=== PATIENT | male | born 1985 | race Caucasian/White ===

== ENCOUNTER → 2016-08-24 | Outpatient (CLI) | payer OTHER ==
--- NOTE | 2016-08-24 11:10 | XR ---
EXAMINATION TYPE: XR hand complete LT DATE OF EXAM: 08/24/2016 11:02 AM CLINICAL HISTORY: Smashing injury with pain TECHNIQUE: Frontal, lateral and oblique images of the left hand are obtained. COMPARISON: Left hand x-ray July 03, 2013 FINDINGS: There is no acute fracture/dislocation evident in the left hand with particular attention to second digit. The joint spaces in the left hand appear within normal limits. The overlying soft t issue appears unremarkable. IMPRESSION: There is no acute fracture or dislocation in the left hand.
== END | disposition home or self-care (01) ==
LOC: RADXRMAIN 10:50
PROVIDERS: ATTEND Emergency Medicine
DX: S67.191A Crushing injury of left index finger, initial encounter (principal); W23.0XXA Caught, crushed, jammed, or pinched between moving objects, initial encounter

== ENCOUNTER 2016-09-16 09:54 | Emergency (ER) | payer BC ==
[2016-09-16] MEDS ORDERED: SODIUM CHLORIDE 0.9% 1,000 ML IV STA (10:25)
--- NOTE | 2016-09-16 10:27 | ED ---
General Adult HPI - General Chief complaint: Abdominal Pain Stated complaint: HYPERGLYCEMIA, PAIN ON RT SIDE Time Seen by Provider: 09/16/16 10:18 Source: patient, RN notes reviewed Mode of arrival: ambulatory Limitations: no limitations - History of Present Illness Initial comments: The patient for 11-year-old male with significant past medical history for hypertension, who presents emergency room today with chief complaint of right- sided flank pain. He does admit the pain started last night had difficult time sleeping. Does admit that he went to urgent care was advised coming here to emergency room for further evaluation. He states he had a urine sample done at the urgent care was told that there was some blood in it. He denies any history of kidney stones. He admits to feeling nauseated. Denies any other complaints or associated symptoms at this time. Patient denies any recent fever , chills, shortness of breath, chest pain, numbness or tingling, dysuria or hematuria, constipation or diarrhea, headaches or visual changes, or any other complaints. - Related Data Previous Rx's Medication Instructions Recorded Ibuprofen [Motrin] 600 mg PO Q6HR PRN #40 day 09/16/16 Ondansetron Odt [Zofran ODT] 4 mg PO Q8HR PRN #20 tab 09/16/16 Allergies Allergy/AdvReac Type Severity Reaction Status Date / Time No Known Allergies Allergy Verified 09/16/16 10:05 Review of Systems ROS Statement: Those systems with pertinent positive or pertinent negative responses have been documented in the HPI. ROS Other: All systems not noted in ROS Statement are negative. Past Medical History Past Medical History: No Reported History, Hypertension History of Any Multi-Drug Resistant Organisms: None Reported Past Surgical History: Hernia Repair Past Psychological History: Depression Smoking Status: Never smoker Past Alcohol Use History: None Reported Past Drug Use History: None Reported General Exam - General Exam Comments Initial Comments: General: The patient is awake and alert, in no distress, and does not appear acutely ill. Eye: Pupils are equal, round and reactive to light, extra-ocular movements are intact. No nystagmus. There is normal conjunctiva bilaterally. No signs of icterus. Ears, nose, mouth and throat: There are moist mucous membranes and no oral lesions. Neck: The neck is supple, there is no tenderness or JVD. Cardiovascular: There is a regular rate and rhythm. No murmur, rub or gallop is appreciated. Respiratory: Lungs are clear to auscultation, respirations are non-labored, breath sounds are equal. No wheezes, stridor, rales, or rhonchi. Gastrointestinal: Soft, non-distended, non-tender abdomen without masses or organomegaly noted. There is no rebound or guarding present. No CVA tenderness. Bowel sounds are unremarkable. Musculoskeletal: Normal ROM, no tenderness. Strength 5/5. Sensation intact. Pulses equal bilaterally 2+. Neurological: A&O x 3. CN II-XII intact, There are no obvious motor or sensory deficits. Coordination appears grossly intact. Speech is normal. Skin: Skin is warm and dry and no rashes or lesions are noted. Psychiatric: Cooperative, appropriate mood & affect, normal judgment. Limitations: no limitations Course Vital Signs 09/16/16 09/16/16 09/16/16 10:06 11:30 12:01 Temperature 97.6 F 97.3 F L Pulse Rate 71 97 Respiratory 20 16 Rate Blood Pressure 171/111 202/103 165/105 O2 Sat by Pulse 99 100 Oximetry Medical Decision Making - Medical Decision Making Patient's CAT scan reviewed and does show polycystic kidneys with renal stones. Patient's labs reviewed 13,000 white count has had symptoms of nausea vomiting. Patient rested comfortably in no distress here the emergency room will be discharged home with nausea medication. Advised anti-inflammatories for pain and follow-up family doctor this coming week. Advised return if any symptoms increase or worsen or for concerns. - Lab Data Result diagrams: 09/16/16 10:35 09/16/16 10:35 Lab Results 09/16/16 09/16/16 09/16/16 Range/Units 10:35 10:35 11:30 WBC 13.4 H (3.8-10.6) k/uL RBC 4.80 (4.30-5.90) m/uL Hgb 15.5 (13.0-17.5) gm/dL Hct 44.7 (39.0-53.0) % MCV 93.2 (80.0-100.0) fL MCH 32.3 (25.0-35.0) pg MCHC 34.6 (31.0-37.0) g/dL RDW 12.1 (11.5-15.5) % Plt Count 194 (150-450) k/uL Neutrophils % 86 % Lymphocytes % 7 % Monocytes % 4 % Eosinophils % 0 % Basophils % 0 % Neutrophils # 11.6 H (1.3-7.7) k/uL Lymphocytes # 1.0 (1.0-4.8) k/uL Monocytes # 0.6 (0-1.0) k/uL Eosinophils # 0.0 (0-0.7) k/uL Basophils # 0.1 (0-0.2) k/uL Sodium 143 (137-145) mmol/L Potassium 4.0 (3.5-5.1) mmol/L Chloride 103 (98-107) mmol/L Carbon Dioxide 28 (22-30) mmol/L Anion Gap 12 mmol/L BUN 24 H (9-20) mg/dL Creatinine 0.93 (0.66-1.25) mg/dL Est GFR (MDRD) Af Amer >60 (>60 ml/min/1.73 sqM) Est GFR (MDRD) Non-Af >60 (>60 ml/min/1.73 sqM) Glucose 96 (74-99) mg/dL Calcium 10.3 H (8.4-10.2) mg/dL Total Bilirubin 0.7 (0.2-1.3) mg/dL AST 30 (17-59) U/L ALT 37 (21-72) U/L Alkaline Phosphatase 80 (38-126) U/L Total Protein 8.6 H (6.3-8.2) g/dL Albumin 4.9 (3.5-5.0) g/dL Amylase 66 (30-110) U/L Lipase 80 (23-300) U/L Urine Color Light Yellow Urine Appearance Clear (Clear) Urine pH 7.0 (5.0-8.0) Ur Specific [place] 1.012 (1.001-1.035) Urine Protein 2+ H (Negative) Urine Glucose (UA) Negative (Negative) Urine Ketones Negative (Negative) Urine Blood Negative (Negative) Urine Nitrate Negative (Negative) Urine Bilirubin Negative (Negative) Urine Urobilinogen <2.0 (<2.0) mg/dL Ur Leukocyte Esterase Negative (Negative) Urine RBC 1 (0-5) /hpf Urine WBC 1 (0-5) /hpf Urine Mucus Rare H (None) /hpf Disposition Clinical Impression: Abdominal pain Disposition: HOME SELF-CARE Condition: Good Instructions: Abdominal Pain (ED) Additional Instructions: Please use medication as discussed. Please follow-up with family doctor in the next 2 days of symptoms have not improved. Please return to emergency room if the symptoms increase or worsen or for any other concerns. Prescriptions: Ibuprofen [Motrin] 600 mg PO Q6HR PRN #40 day PRN Reason: Pain Ondansetron Odt [Zofran ODT] 4 mg PO Q8HR PRN #20 tab PRN Reason: Nausea Time of Disposition: 12:24
[2016-09-16 10:56] LABS: Basophils # (A) 0.1 k/uL (0-0.2); Basophils % (A) 0 %; CH 32.8; CHCM 35.4; Eosinophils % (A) 0 %; HCT 44.7 % (39.0-53.0); HGB 15.5 gm/dL (13.0-17.5); Luc % (Auto) 2; Lymphocytes % (A) 7 %; MCH 32.3 pg (25.0-35.0); MCHC 34.6 g/dL (31.0-37.0); MCV 93.2 fL (80.0-100.0); Mean Platelet Volume 9.5; Monocytes # (A) 0.6 k/uL (0-1.0); Monocytes % (A) 4 %; Neutrophils # (A) 11.6 k/uL (1.3-7.7); Neutrophils % (A) 86 %; RDW 12.1 % (11.5-15.5); WBC 13.4 k/uL (3.8-10.6); WBC (Perox) 13.17
[2016-09-16] MEDS ORDERED: hydrALAZINE HCL 20 MG/ML 1 ML VIAL IVP STA (11:07)
--- NOTE | 2016-09-16 11:09 | XR ---
EXAMINATION TYPE: XR KUB DATE OF EXAM: 09/16/2016 11:02 AM COMPARISON: NONE INDICATION: Abdomen pain right flank pain TECHNIQUE: Single view abdomen FINDINGS: There is a nonspecific bowel gas pattern present. Small bowel gas and colonic bowel gas is present. Psoas margins are not well visualized. No organomegaly is present. No suspicious air-fluid levels or differential air-fluid levels are present. No free air is present. No mass effect is evident. IMPRESSION: 1. Nonspecific abdomen
[2016-09-16 11:16] LABS: ALT 37 U/L (21-72); AST 30 U/L (17-59); Alkaline Phosphatase 80 U/L (38-126); Amylase 66 U/L (30-110); Anion Gap 12 mmol/L; Blood Urea Nitrogen 24 mg/dL (9-20); Calcium 10.3 mg/dL (8.4-10.2); Carbon Dioxide 28 mmol/L (22-30); Chloride 103 mmol/L (98-107); Glucose 96 mg/dL (74-99); Non-African American GFR(MDRD) >60 (>60 ml/min/1.73 sqM); Sodium 143 mmol/L (137-145); Total Bilirubin 0.7 mg/dL (0.2-1.3); Total Protein 8.6 g/dL (6.3-8.2)
[2016-09-16 11:49] LABS: Appearance,Urine Clear (Clear); Bilirubin,Urine Negative (Negative); Glucose,Urine (UA) Negative (Negative); Ketones,Urine Negative (Negative); Leukocyte Esterase,Urine Negative (Negative); Mucus,Urine Rare /hpf; Nitrite,Urine Negative (Negative); Particle Count 985; Protein,Urine 2+ (Negative); RBC,Urine 1 /hpf (0-5); Specific Gravity,Urine 1.012 (1.001-1.035); UA Billing (MACRO vs. MICRO) MICRO; Urobilinogen,Urine <2.0 mg/dL (<2.0); WBC,Urine 1 /hpf (0-5)
--- NOTE | 2016-09-16 12:00 | CT ---
EXAMINATION TYPE: CT abdomen pelvis wo con DATE OF EXAM: 09/16/2016 11:51 AM COMPARISON: NONE INDICATION: Rt flank pain, microscopic hematuria DLP: 361.8 mGycm, Automated exposure control for dose reduction was used. CONTRAST: None Study performed without Oral Contrast TECHNIQUE: Axial images were obtained from above the diaphragm to the pubic rami in the axial plane a t 5 mm thick sections. Reconstructed images are reviewed on the computer in the coronal plane. FINDINGS: Limited CT sections are obtained the lung bases. The lung bases are clear. CT ABDOMEN: Liver: Normal Spleen: Normal Pancreas: Normal Adrenal glands: The adrenal glands are normal. Gallbladder: Normal Kidneys: Kidneys have a appearance of polycystic kidney disease. Multiple cysts are present. Addition ally, there are multiple scattered punctate calcifications within the bilateral kidneys without hydro nephrosis. These greater in number on the left. The largest within the cortex measures 0.4 cm.. No hy dronephrosis is present. Aorta: Normal Inferior vena cava: Normal. CT PELVIS: Loops of bowel within the abdomen and pelvis are normal. There are loops of bowel which are incom pletely distended or lack oral contrast limiting their evaluation. Appendix: Not identified. Urinary bladder: Normal. Genitourinary structures: Couple of calcifications are within the prostate. Osseous structures: No suspicious lytic or sclerotic lesions. IMPRESSIONS: 1. Polycystic kidneys. 2. Multiple nonobstructing punctate renal stones bilaterally, greater on the left.
[2016-09-16 12:02] VITALS: TEMP 97.3
[2016-09-16 12:25] VITALS: BP 145/81
[2016-09-16 12:34] VITALS: PULSE 87; RESP 18
== END 2016-09-16 12:34 | disposition home or self-care (01) ==
LOC: EC 09:54
DX: R10.9 Unspecified abdominal pain (principal); R11.2 Nausea with vomiting, unspecified; N20.0 Calculus of kidney; Q61.3 Polycystic kidney, unspecified; Z98.890 Other specified postprocedural states
CPT/HCPCS: 99284; 96374; 96361; 36415; 80053; 82150; 83690; 85025; 81001; 87086; 74000; 74176; J0360

== ENCOUNTER 2021-05-24 07:23 | Emergency (ER) | payer SELFPAY ==
[2021-05-24 07:30] VITALS: TEMP 97.5
--- NOTE | 2021-05-24 07:58 | ED ---
General Adult HPI - General Chief complaint: Abdominal Pain Stated complaint: rt sided abd pain Time Seen by Provider: 05/24/21 07:35 Source: patient Mode of arrival: ambulatory Limitations: no limitations - History of Present Illness Initial comments: Dictation was produced using [employer] dictation software. please excuse any grammatical, word or spelling errors. Chief Complaint: 36-year-old male presents with chronic cough and right-sided flank pain History of Present Illness: 36-year-old male presents to the emergency department for 2 complaints. Patient states he like to be evaluated for chronic cough that he's had over a year. Patient states sometimes he coughs so much that he has posttussive emesis. Patient denies any chest pain. No shortness of breath. He does smoke tobacco regularly. Denies any constitutional symptoms. His second complaint is right-sided CVA and flank pain. Patient's was told that he had some renal stones. He has never had a symptomatic kidney stone. States he has pain to his right CVA right flank area. Is worse when he takes a deep breath. Patient states that it hurts whenever he bends over. He did notice some darkening of his urine over the last 24 hours. The reading on to the groin. It is not severe. The ROS documented in this emergency department record has been reviewed and confirmed by me. Those systems with pertinent positive or negative responses have been documented in the HPI. All other systems are other negative and/or noncontributory. PHYSICAL EXAM: General Impression: Alert and oriented x3, not in acute distress HEENT: Normocephalic atraumatic, extra-ocular movements intact, pupils equal and reactive to light bilaterally, mucous membranes moist. Cardiovascular: Heart regular rate and rhythm Chest: Able to complete full sentences, no retractions, no tachypnea, lungs clear to auscultation bilaterally Abdomen: abdomen soft, non-tender, non-distended, no organomegaly Musculoskeletal: Pulses present and equal in all extremities, no peripheral edema Motor: no focal deficits noted Neurological: CN II-XII grossly intact, no focal motor or sensory deficits noted Skin: Intact with no visualized rashes Psych: Normal affect and mood ED course: 36-year-old male presents emergency department for chief complaint of chronic cough and right-sided flank pain. Vital signs upon arrival are within acceptable limits. Laboratory evaluation obtained. CBC, within acceptable limits. Patient has a creatinine of 1.77. Patient does not have any history of kidney failure with there is a creatinine that was drawn from January 26 that was around the same urinalysis shows 114 red blood cells. Kidney bladder ultrasound was obtained showing polycystic kidney disease. Computed tomography scan was ordered for concerns of nephrolithiasis. Computed tomography scan demonstrates polycystic kidney disease with nonobstructing renal calculi bilaterally. Discussed with patient that there is concern for polycystic kidney disease seen on the CT. I believe that seemed disease processes causing his chronic cough. Patient was told that there is concern that he has a genetic disease causing this. He is given referral to nephrology. Told to follow up as soon as possible. Return precautions discussed. - Related Data Home Medications Medication Instructions Recorded Confirmed amLODIPine BESYLATE/BENAZEPRIL 1 cap PO DAILY 05/24/21 05/24/21 [Lotrel 10-40 MG] Allergies Allergy/AdvReac Type Severity Reaction Status Date / Time No Known Allergies Allergy Verified 05/24/21 10:18 Review of Systems ROS Statement: Those systems with pertinent positive or pertinent negative responses have been documented in the HPI. ROS Other: All systems not noted in ROS Statement are negative. Past Medical History Past Medical History: No Reported History, Hypertension History of Any Multi-Drug Resistant Organisms: None Reported Past Surgical History: Hernia Repair Past Psychological History: Depression Smoking Status: Current some day smoker Past Alcohol Use History: None Reported Past Drug Use History: None Reported General Exam Limitations: no limitations Course Vital Signs 05/24/21 07:25 Temperature 97.5 F L Pulse Rate 89 Respiratory 18 Rate Blood Pressure 143/95 O2 Sat by Pulse 100 Oximetry Medical Decision Making - Lab Data Result diagrams: 05/24/21 07:56 05/24/21 07:56 Lab Results 05/24/21 05/24/21 05/24/21 Range/Units 07:56 07:56 07:56 WBC 12.6 H (3.8-10.6) k/uL RBC 4.08 L (4.30-5.90) m/uL Hgb 13.3 (13.0-17.5) gm/dL Hct 38.6 L (39.0-53.0) % MCV 94.8 (80.0-100.0) fL MCH 32.6 (25.0-35.0) pg MCHC 34.4 (31.0-37.0) g/dL RDW 11.7 (11.5-15.5) % Plt Count 259 (150-450) k/uL MPV 8.8 Neutrophils % 82 % Lymphocytes % 10 % Monocytes % 4 % Eosinophils % 2 % Basophils % 0 % Neutrophils # 10.4 H (1.3-7.7) k/uL Lymphocytes # 1.3 (1.0-4.8) k/uL Monocytes # 0.5 (0-1.0) k/uL Eosinophils # 0.2 (0-0.7) k/uL Basophils # 0.0 (0-0.2) k/uL Sodium 141 (137-145) mmol/L Potassium 4.9 (3.5-5.1) mmol/L Chloride 107 (98-107) mmol/L Carbon Dioxide 23 (22-30) mmol/L Anion Gap 11 mmol/L BUN 32 H (9-20) mg/dL Creatinine 1.77 H (0.66-1.25) mg/dL Est GFR (CKD-EPI)AfAm 57 (>60 ml/min/1.73 sqM) Est GFR (CKD-EPI)NonAf 49 (>60 ml/min/1.73 sqM) Glucose 108 H (74-99) mg/dL Calcium 9.7 (8.4-10.2) mg/dL Urine Color Light Yellow Urine Appearance Clear (Clear) Urine pH 6.0 (5.0-8.0) Ur Specific [place] 1.011 (1.001-1.035) Urine Protein 1+ H (Negative) Urine Glucose (UA) Negative (Negative) Urine Ketones Negative (Negative) Urine Blood Moderate H (Negative) Urine Nitrite Negative (Negative) Urine Bilirubin Negative (Negative) Urine Urobilinogen <2.0 (<2.0) mg/dL Ur Leukocyte Esterase Negative (Negative) Urine RBC 114 H (0-5) /hpf Urine WBC 3 (0-5) /hpf Ur Squamous Epith Cells <1 (0-4) /hpf Urine Mucus Rare H (None) /hpf Disposition Clinical Impression: Flank pain Disposition: HOME SELF-CARE Condition: Fair Instructions (If sedation given, give patient instructions): Autosomal Dominant Polycystic Kidney Disease (ED) Is patient prescribed a controlled substance at d/c from ED?: No Referrals: Agustin Diehl DO [Primary Care Provider] - 1-2 days Josef Brady DO [STAFF PHYSICIAN] - 1-2 days
[2021-05-24 08:23] LABS: Basophils % (A) 0 %; Eosinophils # (A) 0.2 k/uL (0-0.7); Eosinophils % (A) 2 %; HCT 38.6 % (39.0-53.0); HGB 13.3 gm/dL (13.0-17.5); Lymphocytes # (A) 1.3 k/uL (1.0-4.8); Lymphocytes % (A) 10 %; MCH 32.6 pg (25.0-35.0); MCHC 34.4 g/dL (31.0-37.0); MCV 94.8 fL (80.0-100.0); Mean Platelet Volume 8.8; Monocytes # (A) 0.5 k/uL (0-1.0); Monocytes % (A) 4 %; Neutrophils # (A) 10.4 k/uL (1.3-7.7); Neutrophils % (A) 82 %; Platelet Count 259 k/uL (150-450); RBC 4.08 m/uL (4.30-5.90); RDW 11.7 % (11.5-15.5); WBC 12.6 k/uL (3.8-10.6)
[2021-05-24 08:43] LABS: Calcium 9.7 mg/dL (8.4-10.2); Potassium 4.9 mmol/L (3.5-5.1)
--- NOTE | 2021-05-24 08:50 | XR ---
EXAMINATION TYPE: XR chest 2V DATE OF EXAM: 05/24/2021 COMPARISON: NONE HISTORY: Chronic cough. TECHNIQUE: Frontal and lateral views of the chest are obtained. FINDINGS: There is no focal air space opacity, pleural effusion, or pneumothorax seen. The cardiac silhouette size is within normal limits. The osseous structures are intact. IMPRESSION: No acute cardiopulmonary process.
[2021-05-24 08:57] LABS: Appearance,Urine Clear (Clear); Bilirubin,Urine Negative (Negative); Blood,Urine Moderate (Negative); Color,Urine Light Yellow; Glucose,Urine (UA) Negative (Negative); Ketones,Urine Negative (Negative); Leukocyte Esterase,Urine Negative (Negative); Mucus,Urine Rare /hpf; Nitrite,Urine Negative (Negative); Protein,Urine 1+ (Negative); RBC,Urine 114 /hpf (0-5); Specific Gravity,Urine 1.011 (1.001-1.035); Squamous Epithelial Cell,Urine <1 /hpf (0-4); Urobilinogen,Urine <2.0 mg/dL (<2.0); WBC,Urine 3 /hpf (0-5)
--- NOTE | 2021-05-24 10:05 | CT ---
EXAMINATION TYPE: CT abdomen pelvis wo con DATE OF EXAM: 05/24/2021 HISTORY: Right sided abdominal/flank pain CT DLP: 710 mGycm. Automated Exposure Control for Dose Reduction was Utilized. TECHNIQUE: CT scan of the abdomen and pelvis is performed without oral or IV contrast. COMPARISON: CT abdomen and pelvis September 16, 2016 FINDINGS: Within the limitations of a non-contrast study, the following observations are made. LUNG BASES: No significant abnormality is appreciated. LIVER/GB: There are a few scattered subcentimeter hypodense lesions throughout the liver new from shan or study suspected developing benign thin-walled cysts but too small to definitively characterize. PANCREAS: No significant abnormality is seen. SPLEEN: No significant abnormality is seen. ADRENALS: No significant abnormality is seen. KIDNEYS: Bilateral renal enlargement with innumerable heterogeneous hypodense and hyperdense lesions of varying size and shape scattered throughout both kidneys. Occasional scattered punctate calculus i dentified bilaterally on current study for reference there is 1 to 2 mm calcification right kidney up per to midpole level coronal image 58 and midpole level left kidney coronal image 58. Slightly asymme tric prominent renal pelvises bilaterally. Difficult to assess for calyceal dilatation. No hydrourete r or obstructing calculi clearly seen bilaterally. Mildly distended bladder without intraluminal calc ulus. BOWEL: Low-lying cecum into the right pelvis. Normal terminal ileum. Normal-appearing appendix. Scatt ered colonic diverticula. No CT evidence for acute diverticulitis. GENITAL ORGANS: No gross abnormality seen. LYMPH NODES: No greater than 1cm abdominal or pelvic lymph nodes are appreciated. OSSEOUS STRUCTURES: No significant abnormality is seen. OTHER: Moderate large sized fat-containing umbilical hernia axial image 97 redemonstrated. New small fat-containing left inguinal hernia. IMPRESSION: Findings consistent with underlying polycystic kidney disease redemonstrated. Occasional nonobstructing tiny renal calculi bilaterally. No hydroureter or obstructing ureter calculi clearly s een. Some scattered colonic diverticulosis without CT evidence for acute diverticulitis.
--- NOTE | 2021-05-24 10:18 | US ---
EXAMINATION TYPE: US kidneys/renal and bladder DATE OF EXAM: 05/24/2021 COMPARISON: Same day CT CLINICAL HISTORY: flank pain. EXAM MEASUREMENTS: Right Kidney: 17.2x8.0x7.7 cm Left Kidney: 20.0x10.4x10.1 cm Polycystic kidneys. Multiple shadowing echogenic foci seen bilaterally. Largest Right =0.9cm Largest Left =1.0cm Right Kidney: Complex cyst superior 3.7x3.3x2.8cm Left Kidney: Largest cyst = 2.5x2.9x2.4cm Bladder: wnl Bilateral Jets seen: Yes Findings consistent with known polycystic kidney disease redemonstrated with enlarged bilateral kidne ys having numerous cysts of varying size and shape. No obvious hydronephrosis. Occasional hyperechoic foci could reflect known tiny bilateral renal calculi. Bladder is satisfactorily distended with visu alization of bilateral distal ureter jets. IMPRESSION: Suboptimal study due to underlying polycystic kidney disease. No obvious hydronephrosis b ilaterally. Visualization of bilateral distal ureter jets means completely obstructed ureter is not p resent.
[2021-05-24 11:08] VITALS: BP 154/90; PULSE 84; RESP 20
== END 2021-05-24 11:08 | disposition home or self-care (01) ==
LOC: EC 07:23
DX: N20.0 Calculus of kidney (principal); Q61.3 Polycystic kidney, unspecified; I10 Essential (primary) hypertension; F17.200 Nicotine dependence, unspecified, uncomplicated
CPT/HCPCS: 36415; 71046; 74176; 76770; 80048; 81001; 85025; 99284

== ENCOUNTER 2021-07-22 12:25 | Emergency (ER) | payer BC ==
[2021-07-22 13:06] VITALS: PULSE 93
[2021-07-22] MEDS ORDERED: LIDOCAINE 5% PATCH TOPICAL STA (14:25)
[2021-07-22] MEDS ORDERED: KETOROLAC 15 MG/ML 1 ML VIAL IM STA (14:26)
--- NOTE | 2021-07-22 14:30 | ED ---
General Adult HPI - General Chief complaint: Extremity Problem,Nontraumatic Stated complaint: side pain Time Seen by Provider: 07/22/21 14:10 Source: patient, RN notes reviewed Mode of arrival: ambulatory Limitations: no limitations - History of Present Illness Initial comments: 36-year-old male with a past medical history of hypertension presents to the emergency left upper side pain. Patient reports that he has had a dull ache for about a week in the left upper back. however, today the pain worsened. patient states that he was at work and he went to turn to put apart in place and cough and then felt a sudden pop in his upper back. pain worsens with certain movement, taking a deep breath, and pressing on the area. Patient states his girlfriend wanted him to be evaluated for this.Patient has no other complaints at this time including shortness of breath, chest pain, abdominal pain, nausea or vomiting, headache, or visual changes. - Related Data Home Medications Medication Instructions Recorded Confirmed amLODIPine BESYLATE/BENAZEPRIL 1 cap PO DAILY 05/24/21 07/22/21 [Lotrel 10-40 MG] Previous Rx's Medication Instructions Recorded Ibuprofen [Motrin] 600 mg PO Q8HR PRN #20 tab 07/22/21 Lidocaine 5% Patch [Lidoderm 5% 1 patch TOPICAL DAILY PRN 5 Days 07/22/21 Patch] #5 patch Allergies Allergy/AdvReac Type Severity Reaction Status Date / Time No Known Allergies Allergy Verified 07/22/21 14:42 Review of Systems ROS Statement: Those systems with pertinent positive or pertinent negative responses have been documented in the HPI. ROS Other: All systems not noted in ROS Statement are negative. Past Medical History Past Medical History: No Reported History, Hypertension History of Any Multi-Drug Resistant Organisms: None Reported Past Surgical History: Hernia Repair Past Psychological History: Depression Smoking Status: Current some day smoker Past Alcohol Use History: None Reported Past Drug Use History: None Reported General Exam Limitations: no limitations General appearance: alert, in no apparent distress Head exam: Present: atraumatic Eye exam: Present: normal appearance, PERRL, EOMI. Absent: scleral icterus, conjunctival injection ENT exam: Present: normal exam, mucous membranes moist Neck exam: Present: normal inspection, full ROM. Absent: tenderness Respiratory exam: Present: normal lung sounds bilaterally. Absent: respiratory distress, wheezes Cardiovascular Exam: Present: regular rate, normal rhythm, normal heart sounds GI/Abdominal exam: Present: soft, normal bowel sounds. Absent: distended, tenderness Back exam: Present: other (left upper back tenderness to palpation) Course Vital Signs 07/22/21 13:02 Temperature 97.8 F Pulse Rate 93 Respiratory 16 Rate Blood Pressure 141/90 O2 Sat by Pulse 100 Oximetry Medical Decision Making - Medical Decision Making Vitals are stable. Patient is well-appearing. Patient has left upper back tenderness. Pain worsens with coughing and movement.X-ray of the chest and left side of the ribs was obtained which was negative. Patient likely has intercostal muscle strain. Patient did have improvement in pain with Toradol. We will discharge patient home with pain medication and lidocaine patches. He will take anti-inflammatories as well. Here for worsening symptoms such was discussed with him. Disposition Clinical Impression: Intercostal muscle strain Disposition: HOME SELF-CARE Condition: Good Additional Instructions: Take medication as directed. Do not drive while taking Tylenol 3. Follow-up with your doctor. Return to the emergency room for any worsening symptoms such as fevers or worsening pain. Prescriptions: Lidocaine 5% Patch [Lidoderm 5% Patch] 1 patch TOPICAL DAILY PRN 5 Days #5 patch PRN Reason: Pain Ibuprofen [Motrin] 600 mg PO Q8HR PRN #20 tab PRN Reason: Pain Is patient prescribed a controlled substance at d/c from ED?: No Referrals: Agustin Diehl DO [Primary Care Provider] - 1-2 days Time of Disposition: 16:16
--- NOTE | 2021-07-22 15:50 | XR ---
EXAMINATION TYPE: XR ribs LT w pa chest xray DATE OF EXAM: 07/22/2021 COMPARISON: 05/24/2021 HISTORY: Pain TECHNIQUE: Left ribs are examined in 2 projections. FINDINGS: No pneumothorax is evident. No displaced rib fractures are identified. The heart size is normal. The pulmonary vasculature is normal. The lungs are clear. Follow up exams can be performed 7-10 days from acute trauma for continued pain. IMPRESSION: 1. Normal left ribs.
[2021-07-22] MEDS ORDERED: ACET/COD 300 MG/30 MG STARTER PACK 6 TAB BTL PO STA (16:16)
[2021-07-22 16:39] VITALS: BP 147/96; RESP 18; TEMP 98.9
== END 2021-07-22 16:38 | disposition home or self-care (01) ==
LOC: EC 12:25
DX: S29.011A Strain of muscle and tendon of front wall of thorax, initial encounter (principal); I10 Essential (primary) hypertension; F32.A Depression, unspecified; F17.200 Nicotine dependence, unspecified, uncomplicated; X50.0XXA Overexertion from strenuous movement or load, initial encounter
CPT/HCPCS: 99283; 96372; 71101; J1885

== ENCOUNTER 2021-09-15 07:12 | Emergency (ER) | payer BC ==
[2021-09-15 07:18] VITALS: RESP 18; TEMP 97.9
[2021-09-15] MEDS ORDERED: KETOROLAC 15 MG/ML 1 ML VIAL IVP STA (07:28)
[2021-09-15] MEDS ORDERED: ORPHENADRINE 30 MG/ML 2 ML VIAL IVP STA (07:29)
--- NOTE | 2021-09-15 07:46 | ED ---
General Adult HPI - General Chief complaint: Back Pain/Injury Stated complaint: Back Pain Time Seen by Provider: 09/15/21 07:20 Source: patient, RN notes reviewed Mode of arrival: ambulatory Limitations: no limitations - History of Present Illness Initial comments: This a 36-year-old male presents emergency from chief complaint of left-sided chest wall pain. Patient states that he had an injury several weeks ago which is told he had some intercostal injury. Patient states that he had a cough and felt a severe pop, he states he has pain with deep inspiration left side. Patient does have history of hypertension states he did take his meds this mor ro but states is very uncomfortable. No anterior chest pain no abdominal pain nausea PE or DVT. Patient denies any headache or dizziness no fevers chills no other associated complaints. - Related Data Home Medications Medication Instructions Recorded Confirmed Bp Med (Unknown) 1 tab PO BID 09/15/21 09/15/21 Hydrochlorothiazide 12.5 mg PO DAILY 09/15/21 09/15/21 [hydroCHLOROthiazide] Previous Rx's Medication Instructions Recorded Cyclobenzaprine [Flexeril] 10 mg PO TID PRN #15 tab 09/15/21 Allergies Allergy/AdvReac Type Severity Reaction Status Date / Time ibuprofen AdvReac See Verified 09/15/21 07:31 comments Review of Systems ROS Statement: Those systems with pertinent positive or pertinent negative responses have been documented in the HPI. ROS Other: All systems not noted in ROS Statement are negative. Past Medical History Past Medical History: No Reported History, Hypertension History of Any Multi-Drug Resistant Organisms: None Reported Past Surgical History: Hernia Repair Past Psychological History: Depression Smoking Status: Former smoker Past Alcohol Use History: None Reported Past Drug Use History: None Reported General Exam Limitations: no limitations General appearance: alert, in no apparent distress Head exam: Present: atraumatic, normocephalic, normal inspection Eye exam: Present: normal appearance, PERRL, EOMI. Absent: scleral icterus, conjunctival injection, periorbital swelling ENT exam: Present: normal exam, normal oropharynx, mucous membranes moist Neck exam: Present: normal inspection, full ROM. Absent: tenderness, meningismus, lymphadenopathy Respiratory exam: Present: normal lung sounds bilaterally, chest wall tenderness (Mild left lateral). Absent: respiratory distress, wheezes, rales, rhonchi, stridor Cardiovascular Exam: Present: regular rate, normal rhythm, normal heart sounds. Absent: systolic murmur, diastolic murmur, rubs, gallop, clicks GI/Abdominal exam: Present: soft, normal bowel sounds. Absent: distended, tenderness, guarding, rebound, rigid Back exam: Absent: CVA tenderness (R), CVA tenderness (L) Neurological exam: Present: alert, oriented X3 Skin exam: Present: warm, dry, intact, normal color. Absent: rash Course Vital Signs 09/15/21 09/15/21 07:16 08:52 Temperature 97.9 F Pulse Rate 95 70 Respiratory 18 18 Rate Blood Pressure 167/122 144/95 O2 Sat by Pulse 98 99 Oximetry Medical Decision Making - Medical Decision Making 36-year-old presented for left-sided rib pain. Patient workup was negative including negative troponin, EKG, chest x-ray. I do believe this is related to chest wall, intercostal injury he's had this in the past along with his been reproducible. Patient discharged in stable condition return parameters discussed. - Lab Data Result diagrams: 09/15/21 08:14 09/15/21 08:14 Lab Results 09/15/21 09/15/21 09/15/21 Range/Units 08:14 08:14 08:14 WBC 7.6 (3.8-10.6) k/uL RBC 4.03 L (4.30-5.90) m/uL Hgb 13.0 (13.0-17.5) gm/dL Hct 38.7 L (39.0-53.0) % MCV 96.0 (80.0-100.0) fL MCH 32.2 (25.0-35.0) pg MCHC 33.6 (31.0-37.0) g/dL RDW 12.5 (11.5-15.5) % Plt Count 252 (150-450) k/uL MPV 8.6 Neutrophils % 74 % Lymphocytes % 16 % Monocytes % 4 % Eosinophils % 4 % Basophils % 1 % Neutrophils # 5.6 (1.3-7.7) k/uL Lymphocytes # 1.2 (1.0-4.8) k/uL Monocytes # 0.3 (0-1.0) k/uL Eosinophils # 0.3 (0-0.7) k/uL Basophils # 0.1 (0-0.2) k/uL PT 10.0 (9.0-12.0) sec INR 0.9 (<1.2) APTT 24.2 (22.0-30.0) sec D-Dimer 0.58 (<0.60) mg/L FEU Sodium 139 (137-145) mmol/L Potassium 4.8 (3.5-5.1) mmol/L Chloride 108 H (98-107) mmol/L Carbon Dioxide 24 (22-30) mmol/L Anion Gap 7 mmol/L BUN 29 H (9-20) mg/dL Creatinine 1.97 H (0.66-1.25) mg/dL Est GFR (CKD-EPI)AfAm 50 (>60 ml/min/1.73 sqM) Est GFR (CKD-EPI)NonAf 43 (>60 ml/min/1.73 sqM) Glucose 127 H (74-99) mg/dL Calcium 9.4 (8.4-10.2) mg/dL Magnesium 1.7 (1.6-2.3) mg/dL Total Bilirubin 0.4 (0.2-1.3) mg/dL AST 22 (17-59) U/L ALT 28 (4-49) U/L Alkaline Phosphatase 76 (38-126) U/L Troponin I (0.000-0.034) ng/mL Total Protein 7.2 (6.3-8.2) g/dL Albumin 4.1 (3.5-5.0) g/dL Lipase 131 (23-300) U/L 09/15/21 Range/Units 08:14 WBC (3.8-10.6) k/uL RBC (4.30-5.90) m/uL Hgb (13.0-17.5) gm/dL Hct (39.0-53.0) % MCV (80.0-100.0) fL MCH (25.0-35.0) pg MCHC (31.0-37.0) g/dL RDW (11.5-15.5) % Plt Count (150-450) k/uL MPV Neutrophils % % Lymphocytes % % Monocytes % % Eosinophils % % Basophils % % Neutrophils # (1.3-7.7) k/uL Lymphocytes # (1.0-4.8) k/uL Monocytes # (0-1.0) k/uL Eosinophils # (0-0.7) k/uL Basophils # (0-0.2) k/uL PT (9.0-12.0) sec INR (<1.2) APTT (22.0-30.0) sec D-Dimer (<0.60) mg/L FEU Sodium (137-145) mmol/L Potassium (3.5-5.1) mmol/L Chloride (98-107) mmol/L Carbon Dioxide (22-30) mmol/L Anion Gap mmol/L BUN (9-20) mg/dL Creatinine (0.66-1.25) mg/dL Est GFR (CKD-EPI)AfAm (>60 ml/min/1.73 sqM) Est GFR (CKD-EPI)NonAf (>60 ml/min/1.73 sqM) Glucose (74-99) mg/dL Calcium (8.4-10.2) mg/dL Magnesium (1.6-2.3) mg/dL Total Bilirubin (0.2-1.3) mg/dL AST (17-59) U/L ALT (4-49) U/L Alkaline Phosphatase (38-126) U/L Troponin I <0.012 (0.000-0.034) ng/mL Total Protein (6.3-8.2) g/dL Albumin (3.5-5.0) g/dL Lipase (23-300) U/L Disposition Clinical Impression: Chest wall injury, Intercostal muscle strain Disposition: HOME SELF-CARE Condition: Stable Instructions (If sedation given, give patient instructions): Chest Wall Pain (ED) Additional Instructions: Please return to the Emergency Department if symptoms worsen or any other concerns. Prescriptions: Cyclobenzaprine [Flexeril] 10 mg PO TID PRN #15 tab PRN Reason: Muscle Spasm Is patient prescribed a controlled substance at d/c from ED?: No Referrals: Agustin Diehl DO [Primary Care Provider] - 1-2 days Time of Disposition: 09:34
[2021-09-15 08:24] LABS: Basophils # (A) 0.1 k/uL (0-0.2); Basophils % (A) 1 %; Eosinophils # (A) 0.3 k/uL (0-0.7); Eosinophils % (A) 4 %; HCT 38.7 % (39.0-53.0); Lymphocytes # (A) 1.2 k/uL (1.0-4.8); Lymphocytes % (A) 16 %; MCH 32.2 pg (25.0-35.0); MCHC 33.6 g/dL (31.0-37.0); Mean Platelet Volume 8.6; Monocytes # (A) 0.3 k/uL (0-1.0); Monocytes % (A) 4 %; Neutrophils # (A) 5.6 k/uL (1.3-7.7); Neutrophils % (A) 74 %; Platelet Count 252 k/uL (150-450); RBC 4.03 m/uL (4.30-5.90); RDW 12.5 % (11.5-15.5); WBC 7.6 k/uL (3.8-10.6)
--- NOTE | 2021-09-15 08:24 | XR ---
EXAMINATION TYPE: XR chest 2V DATE OF EXAM: 09/15/2021 COMPARISON: 07/22/2021 INDICATION: TECHNIQUE: Frontal and lateral views of the chest are obtained. FINDINGS: The heart size is normal. The pulmonary vasculature is normal. The lungs are clear. IMPRESSION: 1. No acute pulmonary process.
[2021-09-15 08:43] LABS: Albumin 4.1 g/dL (3.5-5.0); Calcium 9.4 mg/dL (8.4-10.2); Magnesium 1.7 mg/dL (1.6-2.3); Potassium 4.8 mmol/L (3.5-5.1); Total Bilirubin 0.4 mg/dL (0.2-1.3); Total Protein 7.2 g/dL (6.3-8.2)
[2021-09-15 08:50] LABS: INR 0.9 (<1.2); Partial Thromboplastin Time 24.2 sec (22.0-30.0)
[2021-09-15 10:07] VITALS: BP 134/92; PULSE 76
== END 2021-09-15 10:06 | disposition home or self-care (01) ==
LOC: EC 07:12
DX: S29.011A Strain of muscle and tendon of front wall of thorax, initial encounter (principal); I10 Essential (primary) hypertension; F32.A Depression, unspecified; Z87.891 Personal history of nicotine dependence; Z88.6 Allergy status to analgesic agent; X58.XXXA Exposure to other specified factors, initial encounter
CPT/HCPCS: 99285; 96374; 96375; 36415; 93005; 85379; 80053; 83690; 83735; 84484; 85025; 85610; 85730; 71046; J2360; J1885

== ENCOUNTER 2022-10-02 18:38 | Emergency (ER) | payer BC ==
[2022-10-02 18:53] VITALS: BP 136/102; PULSE 115; RESP 20; TEMP 98.5
[2022-10-02] MEDS ORDERED: BENZONATATE 100 MG CAP PO STA (19:39)
--- NOTE | 2022-10-02 19:41 | ED ---
General Adult HPI - General Chief complaint: Abdominal Pain Stated complaint: R side pain Time Seen by Provider: 10/02/22 19:27 Source: patient, RN notes reviewed Mode of arrival: ambulatory Limitations: no limitations - History of Present Illness Initial comments: This is a 37-year-old male with no significant past medical history presents to the emergency department with a chief complaint of right flank pain. Patient reports no previous injury or trauma. He reports that he was diagnosed with Covid approximately 2 months ago and has had a residual cough. A week ago he sneezed and heard a pop in his back and his ordered worsening muscle pain that is worse with movement ever since. He has not taken anything for his symptoms. He denies any fever, chills, saddle paresthesias, loss of bowel or bladder function. Patient denies any dysuria, hematuria, shortness of breath. - Related Data Home Medications Medication Instructions Recorded Confirmed amLODIPine BESYLATE/BENAZEPRIL 1 cap PO DAILY 09/15/21 09/15/21 [Lotrel 10-40 MG] carvediloL [Coreg] 6.25 mg PO BID 09/15/21 09/15/21 Previous Rx's Medication Instructions Recorded Cyclobenzaprine [Flexeril] 10 mg PO TID PRN #15 tab 09/15/21 Albuterol Inhaler [Ventolin Hfa 2 puff INHALATION TID #8 gm 10/02/22 Inhaler] Benzonatate [Tessalon Perles] 100 mg PO TID PRN #24 capsule 10/02/22 Allergies Allergy/AdvReac Type Severity Reaction Status Date / Time ibuprofen AdvReac See Verified 10/02/22 18:53 comments Review of Systems ROS Statement: Those systems with pertinent positive or pertinent negative responses have been documented in the HPI. ROS Other: All systems not noted in ROS Statement are negative. Past Medical History Past Medical History: No Reported History, Hypertension History of Any Multi-Drug Resistant Organisms: None Reported Past Surgical History: Hernia Repair Past Psychological History: Depression Smoking Status: Former smoker Past Alcohol Use History: None Reported Past Drug Use History: None Reported General Exam Limitations: no limitations General appearance: alert, in no apparent distress Head exam: Present: atraumatic, normocephalic, normal inspection Eye exam: Present: normal appearance, PERRL, EOMI. Absent: scleral icterus, conjunctival injection, periorbital swelling ENT exam: Present: normal exam, mucous membranes moist Neck exam: Present: normal inspection. Absent: tenderness, meningismus, lymphadenopathy Respiratory exam: Present: normal lung sounds bilaterally. Absent: respiratory distress, wheezes, rales, rhonchi, stridor Cardiovascular Exam: Present: regular rate, normal rhythm, normal heart sounds. Absent: systolic murmur, diastolic murmur, rubs, gallop, clicks GI/Abdominal exam: Present: soft, normal bowel sounds. Absent: distended, tenderness, guarding, rebound, rigid Extremities exam: Present: normal inspection, full ROM, normal capillary refill. Absent: tenderness, pedal edema, joint swelling, calf tenderness Back exam: Present: normal inspection Neurological exam: Present: alert, oriented X3, CN II-XII intact Psychiatric exam: Present: normal affect, normal mood Skin exam: Present: warm, dry, intact, normal color. Absent: rash Course Vital Signs 10/02/22 18:50 Temperature 98.5 F Pulse Rate 115 H Respiratory 20 Rate Blood Pressure 136/102 O2 Sat by Pulse 99 Oximetry Medical Decision Making - Medical Decision Making Was pt. sent in by a medical professional or institution (ANIYA Martinez, CLASSICS PROFESSOR, urgent care, hospital, or senior care...) When possible be specific @ -[No] Did you speak to anyone other than the patient for history (EMS, parent, family, police, friend...)? What history was obtained from this source @ -[No] Did you review nursing and triage notes (agree or disagree)? Why? @ -[I reviewed and agree with nursing and triage notes] Were old charts reviewed (outside hosp., previous admission, EMS record, old EKG, old radiological studies, urgent care reports/EKG's, senior care records)? Report findings @ -[No old charts were reviewed] Differential Diagnosis (chest pain, altered mental status, abdominal pain women, abdominal pain men, vaginal bleeding, weakness, fever, dyspnea, syncope, headache, dizziness, GI bleed, back pain, seizure, CVA, palpatations, mental health, musculoskeletal)? @ -[not applicable] EKG interpreted by me (3pts min.). @ -[As above] X-rays interpreted by me (1pt min.). @ -[None done] CT interpreted by me (1pt min.). @ -[None done] U/S interpreted by me (1pt. min.). @ -[None done] What testing was considered but not performed or refused? (CT, X-rays, U/S, labs)? Why? @ -[None] What meds were considered but not given or refused? Why? @ -[None] Did you discuss the management of the patient with other professionals (professionals i.e. DrFreda, PA, CLASSICS PROFESSOR, lab, RT, psych nurse, social organization professor, environmental lawyer, teacher, policy officer, case assistant)? Give summary @ -[No] Was smoking cessation discussed for >3mins.? @ -[No] Was critical care preformed (if so, how long)? @ -[No] Were there social determinants of health that impacted care today? How? (Homelessness, low income, unemployed, alcoholism, drug addiction, transportation, low edu. Level, literacy, decrease access to med. care, detention, rehab)? @ -[No] Was there de-escalation of care discussed even if they declined (Discuss DNR or withdrawal of care, Hospice)? DNR status @ -[No] What co-morbidities impacted this encounter? (DM, HTN, Smoking, COPD, CAD, Cancer, CVA, ARF, Chemo, Hep., AIDS, mental health diagnosis, sleep apnea, morbid obesity)? @ -[None] Was patient admitted / discharged? Hospital course, mention meds given and route, prescriptions, significant lab abnormalities, going to OR and other pertinent info. @ -Discharged. This is a 37-year-old male who presents the emergency department with right paraspinal muscle pain. Patient had a thorough history and physical exam performed. Patient heart rate regular rate and rhythm, lungs clear to auscultation bilaterally abdomen is soft and nontender. There is no CVA tenderness. Pain is reproducible with palpation. Patient was given Lidoderm patch with symptomatic relief. He was given a prescription for Tessalon Perles and an albuterol inhaler. 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 Return precautions were discussed at length. Patient was discharged in stable condition. Case discussed with ALIS Acuna who agrees with plan of care Undiagnosed new problem with uncertain prognosis? @ -[No] Drug Therapy requiring intensive monitoring for toxicity (Heparin, Nitro, Insulin, Cardizem)? @ -[No] Were any procedures done? @ -[No] Diagnosis/symptom? @ right flank pain - post- COVID syndrome - cough Acute, or Chronic, or Acute on Chronic? @ -acute Uncomplicated (without systemic symptoms) or Complicated (systemic symptoms)? @ -uncomplicated Side effects of treatment? @ -[No] Exacerbation, Progression, or Severe Exacerbation? @ -[No] Poses a threat to life or bodily function? How? (Chest pain, USA, DC, pneumonia, PE, COPD, DKA, ARF, appy, cholecystitis, CVA, Diverticulitis, Homicidal, Suicidal, threat to staff... and all critical care pts) @ -low likelihood Disposition Clinical Impression: Cough Disposition: HOME SELF-CARE Condition: Stable Additional Instructions: Please return to the nearest emergency department if worsening symptom of cough, shortness of breath, or chest pain develop. Prescriptions: Benzonatate [Tessalon Perles] 100 mg PO TID PRN #24 capsule PRN Reason: Cough Albuterol Inhaler [Ventolin Hfa Inhaler] 2 puff INHALATION TID #8 gm Is patient prescribed a controlled substance at d/c from ED?: No Referrals: Agustin Diehl DO [Primary Care Provider] - 1-2 days Time of Disposition: 19:41
[2022-10-02] MEDS ORDERED: LIDOCAINE 5% PATCH TOPICAL SCH (19:45)
== END 2022-10-02 20:22 | disposition home or self-care (01) ==
LOC: EC 18:38
DX: R05.9 Cough, unspecified (principal); R10.9 Unspecified abdominal pain; F32.A Depression, unspecified; I10 Essential (primary) hypertension; U09.9 Post COVID-19 condition, unspecified; Z87.891 Personal history of nicotine dependence; Z88.8 Allergy status to other drugs, medicaments and biological substances; Z79.899 Other long term (current) drug therapy
CPT/HCPCS: 99283; 99284

== ENCOUNTER 2023-02-10 01:43 | Emergency (ER) | payer BC ==
[2023-02-10] MEDS ORDERED: ONDANSETRON 4 MG/2 ML VIAL IVP STA (02:25)
[2023-02-10] MEDS ORDERED: MORPHINE SULFATE 4 MG/ML SYRINGE IVP STA ×2 (02:25→04:32)
--- NOTE | 2023-02-10 02:31 | ED ---
Abdominal Pain HPI - General Chief Complaint: Abdominal Pain Stated Complaint: Abd Pain Time Seen by Provider: 02/10/23 02:11 Source: patient, RN notes reviewed, old records reviewed Mode of arrival: EMS Limitations: no limitations - History of Present Illness Initial Comments: This is a 38-year-old male to the emergency department for evaluation. Patient presents today for evaluation of abdominal pain severe severe right flank pain right-sided abdominal pain no nausea no vomiting. Patient has no fevers mild nausea no vomiting. Patient denies trauma, travel history or sick contacts. Patient is concern for appendicitis thinks he did have a mild low-grade fever earlier today. Symptoms started around 4:00 to have been persistent. MD Complaint: abdominal pain, flank pain (Right-sided) -: hour(s) (12) Location: RLQ, suprapubic Radiation: suprapubic, R flank Migration to: suprapubic Severity: severe Quality: stabbing Consistency: constant Improves With: nothing Worsens With: nothing Associated Symptoms: nausea Treatments Prior to Arrival: other (0) - Related Data Home Medications Medication Instructions Recorded Confirmed amLODIPine BESYLATE/BENAZEPRIL 1 cap PO DAILY 09/15/21 09/15/21 [Lotrel 10-40 MG] carvediloL [Coreg] 6.25 mg PO BID 09/15/21 09/15/21 Previous Rx's Medication Instructions Recorded Cyclobenzaprine [Flexeril] 10 mg PO TID PRN #15 tab 09/15/21 Albuterol Inhaler [Ventolin Hfa 2 puff INHALATION TID #8 gm 10/02/22 Inhaler] Benzonatate [Tessalon Perles] 100 mg PO TID PRN #24 capsule 10/02/22 Allergies Allergy/AdvReac Type Severity Reaction Status Date / Time ibuprofen AdvReac See Verified 02/10/23 02:05 comments Review of Systems ROS Statement: Those systems with pertinent positive or pertinent negative responses have been documented in the HPI. ROS Other: All systems not noted in ROS Statement are negative. Past Medical History Past Medical History: Hypertension, Renal Disease History of Any Multi-Drug Resistant Organisms: None Reported Past Surgical History: Hernia Repair Past Psychological History: Depression Smoking Status: Former smoker Past Alcohol Use History: None Reported Past Drug Use History: None Reported General Exam Limitations: no limitations General appearance: alert, in no apparent distress Head exam: Present: atraumatic, normocephalic, normal inspection Eye exam: Present: normal appearance, PERRL, EOMI. Absent: scleral icterus, conjunctival injection, periorbital swelling ENT exam: Present: normal exam, mucous membranes moist Neck exam: Present: normal inspection. Absent: tenderness, meningismus, lymphadenopathy Respiratory exam: Present: normal lung sounds bilaterally. Absent: respiratory distress, wheezes, rales, rhonchi, stridor Cardiovascular Exam: Present: regular rate, normal rhythm, normal heart sounds. Absent: systolic murmur, diastolic murmur, rubs, gallop, clicks GI/Abdominal exam: Present: soft, tenderness (Right lower quadrant), normal bowel sounds. Absent: distended, guarding, rebound, rigid Extremities exam: Present: normal inspection, full ROM, normal capillary refill. Absent: tenderness, pedal edema, joint swelling, calf tenderness Back exam: Present: normal inspection Neurological exam: Present: alert, oriented X3, CN II-XII intact Psychiatric exam: Present: normal affect, normal mood Skin exam: Present: warm, dry, intact, normal color. Absent: rash Course Vital Signs 02/10/23 02/10/23 02/10/23 02:06 03:00 04:00 Temperature 99.1 F 98.6 F Pulse Rate 72 89 89 Respiratory 16 16 14 Rate Blood Pressure 135/83 127/87 123/55 O2 Sat by Pulse 97 96 96 Oximetry 02/10/23 02/10/23 06:00 07:20 Temperature 97.7 F Pulse Rate 84 70 Respiratory 14 14 Rate Blood Pressure 118/79 121/82 O2 Sat by Pulse 97 97 Oximetry - Reevaluation(s) Reevaluation #1: 02/10/23 02:30 Medical records reviewed Reevaluation #2: 02/10/23 02:31 Patient has no change in symptoms here in the ER Reevaluation #3: 02/10/23 02:31 Patient informed results questions answered Reevaluation #4: 02/10/23 02:31 Was pt. sent in by a medical professional or institution (, PA, OPERATIONS CONTROLLER, urgent care, hospital, or assisted...) When possible be specific @ -no Did you speak to anyone other than the patient for history (EMS, parent, family, police, friend...)? What history was obtained from this source @ -no Did you review nursing and triage notes (agree or disagree)? Why? @ -agree Are old charts reviewed (outside hosp., previous admission, EMS record, old EKG, old radiological studies, urgent care reports/EKG's, assisted records)? Report findings @ -yes Differential Diagnosis (chest pain, altered mental status, abdominal pain women, abdominal pain men, vaginal bleeding, weakness, fever, dyspnea, syncope, headache, dizziness, GI bleed, back pain, seizure, CVA, palpatations, mental health, musculoskeletal)? @ -prior EKG interpreted by me (3pts min.). @ -yes X-rays interpreted by me (1pt min.). @ -yes CT interpreted by me (1pt min.). @ -no U/S interpreted by me (1pt. min.). @ -no What testing was considered but not performed or refused? (CT, X-rays, U/S, labs)? Why? @ -none What meds were considered but not given or refused? Why? @ -none Did you discuss the management of the patient with other professionals (professionals i.e. , PA, OPERATIONS CONTROLLER, lab, RT, psych nurse, health and social care teacher, configuration technician, teacher, community development officer, casey saw operator)? Give summary @ -no Was smoking cessation discussed for >3mins.? @ -no Was critical care preformed (if so, how long)? @ -no Were there social determinants of health that impacted care today? How? (Homelessness, low income, unemployed, alcoholism, drug addiction, transportation, low edu. Level, literacy, decrease access to med. care, care home, rehab)? @ -none Was there de-escalation of care discussed even if they declined (Discuss DNR or withdrawal of care, Hospice)? DNR status @ -no What co-morbidities impacted this encounter? (DM, HTN, Smoking, COPD, CAD, Cancer, CVA, ARF, Chemo, Hep., AIDS, mental health diagnosis, sleep apnea, morbid obesity)? @ -none Was patient admitted / discharged? Hospital course, mention meds given and route, prescriptions, significant lab abnormalities, going to OR and other pertinent info. @ - 37 male for abdominal pain. Patient did appear to have right cyst rupture with no other acute findings, likely cause of pain. Pain is resolved here in the ER feels well can be discharged home Discharge Undiagnosed new problem with uncertain prognosis? @ -no Drug Therapy requiring intensive monitoring for toxicity (Heparin, Nitro, Insulin, Cardizem)? @ -no Were any procedures done? @ -no Diagnosis/symptom? @ - Acute, or Chronic, or Acute on Chronic? @ -Acute Uncomplicated (without systemic symptoms) or Complicated (systemic symptoms)? @ -Complicated Side effects of treatment? @ -no Exacerbation, Progression, or Severe Exacerbation? @ -exacerbation Poses a threat to life or bodily function? How? (Chest pain, USA, MD, pneumonia, PE, COPD, DKA, ARF, appy, cholecystitis, CVA, Diverticulitis, Homicidal, Suicidal, threat to staff... and all critical care pts) @ -no Reevaluation #5: 02/10/23 02:31 Differential Abdominal Pain Men: Appendicitis, cholecystitis, diverticulosis, ischemic bowel, pancreatitis, hepatitis, UTI, gastroenteritis, AAA, incarcerated hernia, bowel obstruction, constipation, inflammatory bowel, hepatitis, peptic ulcer disease, splenic infarction, perforated viscus, testicular torsion, this is not meant to be an all-inclusive list Medical Decision Making - Medical Decision Making 37 male for abdominal pain. Patient did appear to have right cyst rupture with no other acute findings, likely cause of pain. Patient does have polycystic kidney disease and does have cyst rupture likely causing pain but no evidence of acute bleeding. Pain is resolved here in the ER feels well can be discharged home - Lab Data Result diagrams: 02/10/23 02:24 02/10/23 02:24 Lab Results 02/10/23 02/10/23 Range/Units 02:24 02:24 WBC 12.3 H (3.8-10.6) k/uL RBC 3.31 L (4.30-5.90) m/uL Hgb 10.7 L (13.0-17.5) gm/dL Hct 31.0 L (39.0-53.0) % MCV 93.8 (80.0-100.0) fL MCH 32.3 (25.0-35.0) pg MCHC 34.4 (31.0-37.0) g/dL RDW 12.3 (11.5-15.5) % Plt Count 200 (150-450) k/uL MPV 10.3 Neutrophils % 79 % Lymphocytes % 11 % Monocytes % 7 % Eosinophils % 1 % Basophils % 0 % Neutrophils # 9.7 H (1.3-7.7) k/uL Lymphocytes # 1.3 (1.0-4.8) k/uL Monocytes # 0.9 (0-1.0) k/uL Eosinophils # 0.1 (0-0.7) k/uL Basophils # 0.0 (0-0.2) k/uL Sodium 137 (137-145) mmol/L Potassium 5.1 (3.5-5.1) mmol/L Chloride 107 (98-107) mmol/L Carbon Dioxide 21 L (22-30) mmol/L Anion Gap 9 mmol/L BUN 42 H (9-20) mg/dL Creatinine 3.36 H (0.66-1.25) mg/dL Est GFR (CKD-EPI)AfAm 26 (>60 ml/min/1.73 sqM) Est GFR (CKD-EPI)NonAf 22 (>60 ml/min/1.73 sqM) Glucose 122 H (74-99) mg/dL Calcium 9.3 (8.4-10.2) mg/dL Total Bilirubin 0.7 (0.2-1.3) mg/dL AST 27 (17-59) U/L ALT 27 (4-49) U/L Alkaline Phosphatase 69 (38-126) U/L C-Reactive Protein 6.2 H (<1.0) mg/dL Total Protein 7.2 (6.3-8.2) g/dL Albumin 3.9 (3.5-5.0) g/dL Amylase 60 (30-110) U/L Lipase 88 (23-300) U/L - Radiology Data Radiology results: report reviewed (CT abdomen and pelvis is positive for cyst rupture), image reviewed Disposition Clinical Impression: Abdominal pain Disposition: HOME SELF-CARE Condition: Good Instructions (If sedation given, give patient instructions): Abdominal Pain (ED) Is patient prescribed a controlled substance at d/c from ED?: No Referrals: Agustin Diehl DO [Primary Care Provider] - 1-2 days Time of Disposition: 07:00
[2023-02-10 03:33] LABS: Basophils % (A) 0 %; Eosinophils # (A) 0.1 k/uL (0-0.7); Eosinophils % (A) 1 %; HGB 10.7 gm/dL (13.0-17.5); Lymphocytes # (A) 1.3 k/uL (1.0-4.8); Lymphocytes % (A) 11 %; MCH 32.3 pg (25.0-35.0); MCHC 34.4 g/dL (31.0-37.0); MCV 93.8 fL (80.0-100.0); Mean Platelet Volume 10.3; Monocytes # (A) 0.9 k/uL (0-1.0); Monocytes % (A) 7 %; Neutrophils # (A) 9.7 k/uL (1.3-7.7); Neutrophils % (A) 79 %; Platelet Count 200 k/uL (150-450); RBC 3.31 m/uL (4.30-5.90); RDW 12.3 % (11.5-15.5); WBC 12.3 k/uL (3.8-10.6)
[2023-02-10 03:58] LABS: ALT 27 U/L (4-49); AST 27 U/L (17-59); African American GFR (CKD) 26 (>60 ml/min/1.73 sqM); Albumin 3.9 g/dL (3.5-5.0); Alkaline Phosphatase 69 U/L (38-126); Amylase 60 U/L (30-110); Anion Gap 9 mmol/L; Blood Urea Nitrogen 42 mg/dL (9-20); C Reactive Protein 6.2 mg/dL (<1.0); Calcium 9.3 mg/dL (8.4-10.2); Carbon Dioxide 21 mmol/L (22-30); Chloride 107 mmol/L (98-107); Glucose 122 mg/dL (74-99); Lipase 88 U/L (23-300); Non-African American GFR(CKD) 22 (>60 ml/min/1.73 sqM); Potassium 5.1 mmol/L (3.5-5.1); Sodium 137 mmol/L (137-145); Total Bilirubin 0.7 mg/dL (0.2-1.3); Total Protein 7.2 g/dL (6.3-8.2)
[2023-02-10 04:31] VITALS: RESP 14
[2023-02-10] MEDS ORDERED: SODIUM CHLORIDE 0.9% 1,000 ML IV STA (04:31)
--- NOTE | 2023-02-10 06:46 | CT ---
EXAMINATION TYPE: CT abdomen pelvis wo con CT DLP: 907.1 mGycm, Automated exposure control for dose reduction was used. DATE OF EXAM: 02/10/2023 4:46 AM COMPARISON: CT abdomen pelvis most recent from 05/24/2021. CLINICAL INDICATION:Male, 37 years old with history of pain; TECHNIQUE: Standard CT of the abdomen and pelvis without IV or oral contrast. Lack of IV or oral co ntrast limits evaluation of solid and hollow organ viscera. Coronal and sagittal reformats were perfo rmed. FINDINGS: LOWER CHEST: Posterior dependent subsegmental atelectasis is noted. Mild cardiomegaly. Minimal bilate ral gynecomastia. ABDOMEN LIVER: Multiple subcentimeter hypoattenuating structures are demonstrated throughout the liver, which are too small to accurately characterize but statistically likely to represent simple hepatic cysts GALLBLADDER AND BILE DUCTS: Unremarkable noncontrast appearance PANCREAS: Unremarkable noncontrast appearance SPLEEN: Unremarkable noncontrast appearance ADRENAL GLANDS: Unremarkable. KIDNEYS AND URETERS: No hydronephrosis. A few punctate calculi within both kidneys. Both kidneys are enlarged and are essentially replaced by innumerable cysts. Several hyperdense likely proteinaceous/h emorrhagic cysts identified within both kidneys. There is some fat stranding surrounding the right ki dney extending inferiorly. PELVIS BLADDER: Unremarkable REPRODUCTIVE: Central prostate calcification. ABDOMEN & PELVIS STOMACH AND BOWEL: Small hiatal hernia, duodenum is unremarkable. No evidence of bowel obstruction. T he appendix is within normal limits. PERITONEUM: No evidence of pneumoperitoneum or free fluid. There is a focal lesion of fat stranding m ost consistent with epiploic appendagitis in the left lateral abdomen adjacent to the descending colo n (image 84, series 201). Similar stranding in the right inguinal region. VASCULATURE: No evidence of aortic aneurysm. MUSCULOSKELETAL: Healing posterior right 11th rib, posterior right eighth, posterior right seventh, l ateral right sixth, and anterior right fifth rib fractures with callus formation. Fracture lines are still visible. Healed posterior left 11th, ninth, and eighth rib fractures without visualized fractur e line. LYMPH NODES: No gross evidence for lymphadenopathy. SOFT TISSUE/ABDOMINAL WALL: Redemonstration of moderate sized fat filled umbilical hernia. Small fat filled left inguinal hernia. IMPRESSION: 1. Findings again consistent with polycystic kidney disease. There is new right perinephric fat stra nding from prior examination which probably represents a ruptured cyst. No hydronephrosis. Nonobstruc tive bilateral renal calculi. Several hyperdense lesions within both kidneys likely representing prot einaceous/hemorrhagic cysts. 2. Left lateral abdomen epiploic appendagitis which is a self-limiting condition. 3. Healing posterior right 11th rib, posterior right eighth, posterior right seventh, lateral right s ixth, and anterior right fifth rib fractures with callus formation. Fracture lines are still visible.
[2023-02-10] MEDS ORDERED: ACET/COD 300 MG/30 MG STARTER PACK 6 TAB BTL PO STA (07:06)
[2023-02-10 07:23] VITALS: BP 121/82; PULSE 70; TEMP 97.7
== END 2023-02-10 07:22 | disposition home or self-care (01) ==
LOC: EC 01:43
DX: R10.31 Right lower quadrant pain (principal); I10 Essential (primary) hypertension; F32.A Depression, unspecified; Z87.891 Personal history of nicotine dependence; Z88.6 Allergy status to analgesic agent; Z79.899 Other long term (current) drug therapy
CPT/HCPCS: 36415; 80053; 82150; 83690; 85025; 86140; 74176; 99284; 96374; 96375; 96376; 96361; J2270; J2405

== ENCOUNTER 2023-07-01 18:53 | Emergency (ER) | payer BC ==
[2023-07-01 19:03] VITALS: RESP 20; TEMP 98.1
--- NOTE | 2023-07-01 19:25 | ED ---
General Adult HPI - General Chief complaint: Urogenital Stated complaint: Urogenital Time Seen by Provider: 07/01/23 19:05 Source: patient, RN notes reviewed Mode of arrival: ambulatory Limitations: no limitations - History of Present Illness Initial comments: 38-year-old male presents emergency Department with chief complaint of hematuria. Patient states started yesterday he states that his happened a few times. He denies any associated pain. Patient has known polycystic kidney disease states she's had cyst rupture in the past. He has no history kidney stones denies any dysuria no abdominal pain no fever or chills. Denies any blood thinners. Patient denies being on dialysis. - Related Data Home Medications Medication Instructions Recorded Confirmed amLODIPine BESYLATE/BENAZEPRIL 1 cap PO DAILY 09/15/21 09/15/21 [Lotrel 10-40 MG] carvediloL [Coreg] 6.25 mg PO BID 09/15/21 09/15/21 Previous Rx's Medication Instructions Recorded Cyclobenzaprine [Flexeril] 10 mg PO TID PRN #15 tab 09/15/21 Albuterol Inhaler [Ventolin Hfa 2 puff INHALATION TID #8 gm 10/02/22 Inhaler] Benzonatate [Tessalon Perles] 100 mg PO TID PRN #24 capsule 10/02/22 Allergies Allergy/AdvReac Type Severity Reaction Status Date / Time ibuprofen AdvReac See Verified 07/01/23 18:56 comments Review of Systems ROS Statement: Those systems with pertinent positive or pertinent negative responses have been documented in the HPI. ROS Other: All systems not noted in ROS Statement are negative. Past Medical History Past Medical History: Hypertension, Renal Disease History of Any Multi-Drug Resistant Organisms: None Reported Past Surgical History: Hernia Repair Past Psychological History: Depression Smoking Status: Former smoker Past Alcohol Use History: None Reported Past Drug Use History: None Reported General Exam Limitations: no limitations General appearance: alert, in no apparent distress Head exam: Present: atraumatic, normocephalic, normal inspection Eye exam: Present: normal appearance, PERRL, EOMI. Absent: scleral icterus, conjunctival injection, periorbital swelling ENT exam: Present: normal exam, normal oropharynx, mucous membranes moist Neck exam: Present: normal inspection, full ROM. Absent: tenderness, meningismus, lymphadenopathy Respiratory exam: Present: normal lung sounds bilaterally. Absent: respiratory distress, wheezes, rales, rhonchi, stridor Cardiovascular Exam: Present: regular rate, normal rhythm, normal heart sounds. Absent: systolic murmur, diastolic murmur, rubs, gallop, clicks GI/Abdominal exam: Present: soft, normal bowel sounds. Absent: distended, tenderness, guarding, rebound, rigid Back exam: Absent: CVA tenderness (R), CVA tenderness (L) Course Vital Signs 07/01/23 18:55 Temperature 98.1 F Pulse Rate 113 H Respiratory 20 Rate Blood Pressure 167/90 O2 Sat by Pulse 99 Oximetry Medical Decision Making - Medical Decision Making Was pt. sent in by a medical professional or institution (, PA, POLL WATCHER, urgent care, hospital, or fci...) When possible be specific @ -No Did you speak to anyone other than the patient for history (EMS, parent, family, police, friend...)? What history was obtained from this source @ -No Did you review nursing and triage notes (agree or disagree)? Why? @ -I reviewed and agree with nursing and triage notes Were old charts reviewed (outside hosp., previous admission, EMS record, old EKG, old radiological studies, urgent care reports/EKG's, fci records)? Report findings @ -Reviewed prior CT, x-ray studies Differential Diagnosis (chest pain, altered mental status, abdominal pain women, abdominal pain men, vaginal bleeding, weakness, fever, dyspnea, syncope, headache, dizziness, GI bleed, back pain, seizure, CVA, palpatations, mental health, musculoskeletal)? @ -nDifferential Abdominal Pain Men: Appendicitis, cholecystitis, diverticulosis, ischemic bowel, pancreatitis, hepatitis, UTI, gastroenteritis, AAA, incarcerated hernia, bowel obstruction, constipation, inflammatory bowel, hepatitis, peptic ulcer disease, splenic infarction, perforated viscus, testicular torsion, this is not meant to be an all-inclusive listle EKG interpreted by me (3pts min.). @ -[None X-ray interpreted by me by me (1pt min.). @ -None done CT interpreted by me (1pt min.). @ -None done U/S interpreted by me (1pt. min.). @ -None done What testing was considered but not performed or refused? (CT, X-rays, U/S, labs)? Why? @ -None What meds were considered but not given or refused? Why? @ -None Did you discuss the management of the patient with other professionals (professionals i.e. , PA, POLL WATCHER, lab, RT, psych nurse, social service manager, asparagus buncher, teacher, chief clinical officer, case specialist)? Give summary @ -No Was smoking cessation discussed for >3mins.? @ -No Was critical care preformed (if so, how long)? @ -No Were there social determinants of health that impacted care today? How? (Homelessness, low income, unemployed, alcoholism, drug addiction, transportation, low edu. Level, literacy, decrease access to med. care, detention, rehab)? @ -No Was there de-escalation of care discussed even if they declined (Discuss DNR or withdrawal of care, Hospice)? DNR status @ -No What co-morbidities impacted this encounter? (DM, HTN, Smoking, COPD, CAD, Cancer, CVA, ARF, Chemo, Hep., AIDS, mental health diagnosis, sleep apnea, morbid obesity)? @ -Polycystic kidney disease Was patient admitted / discharged? Hospital course, mention meds given and route, prescriptions, significant lab abnormalities, going to OR and other pertinent info. @ -Patient laboratory studies at baseline. Patient does have notable hematuria there is minimal bacteria noted with a urinalysis urine culture was sent. Patient has no associated current pain. Will be discharged in stable condition with follow-up neurology. Undiagnosed new problem with uncertain prognosis? @ -No Drug Therapy requiring intensive monitoring for toxicity (Heparin, Nitro, Insulin, Cardizem)? @ -No Were any procedures done? @ -No Diagnosis/symptom? @ -Hematuria Acute, or Chronic, or Acute on Chronic? @ -Acute Uncomplicated (without systemic symptoms) or Complicated (systemic symptoms)? @ -Uncomplicated Side effects of treatment? @ -No Exacerbation, Progression, or Severe Exacerbation? @ -No Poses a threat to life or bodily function? How? (Chest pain, [place], [place], pneumonia, PE, COPD, DKA, ARF, appy, cholecystitis, CVA, Diverticulitis, Homicidal, Suicidal, threat to staff... and all critical care pts) @ -No - Lab Data Result diagrams: 07/01/23 19:17 07/01/23 19:17 Lab Results 07/01/23 07/01/23 07/01/23 Range/Units 19:17 19:17 19:17 WBC 12.9 H (3.8-10.6) k/uL RBC 3.68 L (4.30-5.90) m/uL Hgb 11.7 L (13.0-17.5) gm/dL Hct 33.9 L (39.0-53.0) % MCV 92.2 (80.0-100.0) fL MCH 31.8 (25.0-35.0) pg MCHC 34.5 (31.0-37.0) g/dL RDW 13.0 (11.5-15.5) % Plt Count 243 (150-450) k/uL MPV 8.9 Neutrophils % 76 % Lymphocytes % 15 % Monocytes % 5 % Eosinophils % 3 % Basophils % 0 % Neutrophils # 9.7 H (1.3-7.7) k/uL Lymphocytes # 1.9 (1.0-4.8) k/uL Monocytes # 0.6 (0-1.0) k/uL Eosinophils # 0.4 (0-0.7) k/uL Basophils # 0.0 (0-0.2) k/uL Sodium 140 (137-145) mmol/L Potassium 4.8 (3.5-5.1) mmol/L Chloride 108 H (98-107) mmol/L Carbon Dioxide 17 L (22-30) mmol/L Anion Gap 15 mmol/L BUN 54 H (9-20) mg/dL Creatinine 3.43 H (0.66-1.25) mg/dL Est GFR (CKD-EPI)AfAm 25 (>60 ml/min/1.73 sqM) Est GFR (CKD-EPI)NonAf 22 (>60 ml/min/1.73 sqM) Glucose 119 H (74-99) mg/dL Calcium 9.2 (8.4-10.2) mg/dL Total Bilirubin 0.4 (0.2-1.3) mg/dL AST 21 (17-59) U/L ALT 27 (4-49) U/L Alkaline Phosphatase 105 (38-126) U/L Total Protein 7.7 (6.3-8.2) g/dL Albumin 4.4 (3.5-5.0) g/dL Urine Color Light Red Urine Appearance Turbid (Clear) Urine pH 6.0 (5.0-8.0) Ur Specific [place] 1.012 (1.001-1.035) Urine Protein 2+ H (Negative) Urine Glucose (UA) Negative (Negative) Urine Ketones Negative (Negative) Urine Blood Large H (Negative) Urine Nitrite Negative (Negative) Urine Bilirubin Negative (Negative) Urine Urobilinogen <2.0 (<2.0) mg/dL Ur Leukocyte Esterase Trace H (Negative) Urine RBC >182 H (0-5) /hpf Urine WBC 19 H (0-5) /hpf Ur Squamous Epith Cells 1 (0-4) /hpf Urine Mucus Rare H (None) /hpf Disposition Clinical Impression: Hematuria Disposition: HOME SELF-CARE Condition: Stable Instructions (If sedation given, give patient instructions): Hematuria (ED) Additional Instructions: Please return to the Emergency Department if symptoms worsen or any other concerns. Is patient prescribed a controlled substance at d/c from ED?: No Referrals: Agustin Diehl DO [Primary Care Provider] - 1-[address] MD [STAFF PHYSICIAN] - 1-2 days Time of Disposition: 20:12
[2023-07-01 19:42] LABS: Basophils % (A) 0 %; Eosinophils # (A) 0.4 k/uL (0-0.7); Eosinophils % (A) 3 %; HCT 33.9 % (39.0-53.0); HGB 11.7 gm/dL (13.0-17.5); Lymphocytes # (A) 1.9 k/uL (1.0-4.8); Lymphocytes % (A) 15 %; MCH 31.8 pg (25.0-35.0); MCHC 34.5 g/dL (31.0-37.0); MCV 92.2 fL (80.0-100.0); Mean Platelet Volume 8.9; Monocytes # (A) 0.6 k/uL (0-1.0); Monocytes % (A) 5 %; Neutrophils # (A) 9.7 k/uL (1.3-7.7); Neutrophils % (A) 76 %; Platelet Count 243 k/uL (150-450); RBC 3.68 m/uL (4.30-5.90); WBC 12.9 k/uL (3.8-10.6)
[2023-07-01 19:50] LABS: ALT 27 U/L (4-49); AST 21 U/L (17-59); African American GFR (CKD) 25 (>60 ml/min/1.73 sqM); Albumin 4.4 g/dL (3.5-5.0); Alkaline Phosphatase 105 U/L (38-126); Anion Gap 15 mmol/L; Blood Urea Nitrogen 54 mg/dL (9-20); Calcium 9.2 mg/dL (8.4-10.2); Carbon Dioxide 17 mmol/L (22-30); Chloride 108 mmol/L (98-107); Glucose 119 mg/dL (74-99); Non-African American GFR(CKD) 22 (>60 ml/min/1.73 sqM); Potassium 4.8 mmol/L (3.5-5.1); Sodium 140 mmol/L (137-145); Total Bilirubin 0.4 mg/dL (0.2-1.3); Total Protein 7.7 g/dL (6.3-8.2)
[2023-07-01 20:02] LABS: Appearance,Urine Turbid (Clear); Bilirubin,Urine Negative (Negative); Blood,Urine Large (Negative); Color,Urine Light Red; Glucose,Urine (UA) Negative (Negative); Ketones,Urine Negative (Negative); Leukocyte Esterase,Urine Trace (Negative); Mucus,Urine Rare /hpf; Nitrite,Urine Negative (Negative); Protein,Urine 2+ (Negative); RBC,Urine >182 /hpf (0-5); Specific Gravity,Urine 1.012 (1.001-1.035); Squamous Epithelial Cell,Urine 1 /hpf (0-4); Urobilinogen,Urine <2.0 mg/dL (<2.0); WBC,Urine 19 /hpf (0-5)
[2023-07-01 20:36] VITALS: BP 149/92; PULSE 89
== END 2023-07-01 20:19 | disposition home or self-care (01) ==
LOC: EC 18:53
DX: R31.9 Hematuria, unspecified (principal); I10 Essential (primary) hypertension; Z79.899 Other long term (current) drug therapy; Z88.6 Allergy status to analgesic agent; Z87.891 Personal history of nicotine dependence
CPT/HCPCS: 36415; 80053; 81001; 85025; 99284

== ENCOUNTER 2023-11-16 02:54 | Emergency (ER) | payer BC ==
[2023-11-16 03:21] VITALS: BP 161/104; PULSE 71; RESP 18; TEMP 98
--- NOTE | 2023-11-16 03:50 | ED ---
General Adult HPI - General Chief complaint: Allergic Reaction Stated complaint: allergic reaction Time Seen by Provider: 11/16/23 03:04 Source: patient Mode of arrival: ambulatory Limitations: no limitations - History of Present Illness Initial comments: Patient is a 38-year-old male with history of hypertension who woke this morning noting discomfort under the tongue. When he got up he looked in the mirror and saw there was swelling. The patient states that he did take some Benadryl at home and then came to be seen here. He states that it seems the Benadryl has relieved a little bit of a swelling. Patient denies dyspnea. He is able to swallow own secretions. Patient does take Lotrel for hypertension -: minutes(s) Location: mouth Severity scale (1-10): 0 Consistency: constant Improves with: none Worsens with: none Associated Symptoms: denies other symptoms Treatments Prior to Arrival: none - Related Data Home Medications Medication Instructions Recorded Confirmed amLODIPine BESYLATE/BENAZEPRIL 1 cap PO DAILY 09/15/21 09/15/21 [Lotrel 10-40 MG] carvediloL [Coreg] 6.25 mg PO BID 09/15/21 09/15/21 Previous Rx's Medication Instructions Recorded Cyclobenzaprine [Flexeril] 10 mg PO TID PRN #15 tab 09/15/21 Albuterol Inhaler [Ventolin Hfa 2 puff INHALATION TID #8 gm 10/02/22 Inhaler] Benzonatate [Tessalon Perles] 100 mg PO TID PRN #24 capsule 10/02/22 amLODIPine 10 mg PO DAILY #30 tab 11/16/23 Allergies Allergy/AdvReac Type Severity Reaction Status Date / Time ibuprofen AdvReac See Verified 11/16/23 03:01 comments Review of Systems ROS Statement: Those systems with pertinent positive or pertinent negative responses have been documented in the HPI. ROS Other: All systems not noted in ROS Statement are negative. Constitutional: Denies: fever, chills ENT: Reports: as per HPI Respiratory: Denies: cough, dyspnea Cardiovascular: Denies: chest pain, palpitations Gastrointestinal: Denies: abdominal pain, vomiting Skin: Denies: rash Neurological: Denies: headache, weakness Past Medical History Past Medical History: Hypertension, Renal Disease History of Any Multi-Drug Resistant Organisms: None Reported Past Surgical History: Hernia Repair Past Psychological History: Depression Smoking Status: Former smoker Past Alcohol Use History: None Reported Past Drug Use History: None Reported General Exam Limitations: no limitations General appearance: alert, in no apparent distress Head exam: Present: atraumatic, normocephalic Eye exam: Present: normal appearance. Absent: scleral icterus, conjunctival injection ENT exam: Present: mucous membranes moist, other (Patient has bilateral sublingual edema) Neck exam: Present: normal inspection, full ROM. Absent: tenderness, meningismus, lymphadenopathy Respiratory exam: Present: normal lung sounds bilaterally. Absent: respiratory distress, wheezes, rales, rhonchi, stridor, accessory muscle use Cardiovascular Exam: Present: regular rate, normal rhythm, normal heart sounds. Absent: systolic murmur, diastolic murmur, rubs, gallop Extremities exam: Present: normal inspection, normal capillary refill. Absent: pedal edema, calf tenderness Back exam: Present: normal inspection. Absent: CVA tenderness (R), CVA tenderness (L) Neurological exam: Present: alert Skin exam: Present: warm, dry, intact, normal color. Absent: rash Course Vital Signs 11/16/23 11/16/23 02:59 03:37 Temperature 98 F Pulse Rate 71 Respiratory 18 18 Rate Blood Pressure 161/104 O2 Sat by Pulse 100 Oximetry Medical Decision Making - Medical Decision Making Was pt. sent in by a medical professional or institution (ANIYA Martinez, [employer], urgent care, hospital, or longterm...) When possible be specific @ -[No] Did you speak to anyone other than the patient for history (EMS, parent, family, police, friend...)? What history was obtained from this source @ -[No] Did you review nursing and triage notes (agree or disagree)? Why? @ -[I reviewed and agree with nursing and triage notes] Were old charts reviewed (outside hosp., previous admission, EMS record, old EKG, old radiological studies, urgent care reports/EKG's, longterm records)? Report findings @ -[No old charts were reviewed] Differential Diagnosis (chest pain, altered mental status, abdominal pain women, abdominal pain men, vaginal bleeding, weakness, fever, dyspnea, syncope, headache, dizziness, GI bleed, back pain, seizure, CVA, palpatations, mental health, musculoskeletal)? @ -[The differential diagnosis includes angioedema, allergic reaction, intraoral infection/Harjinder angina, malignancy/other tumor, sialoadenitis this list not comprehensive EKG interpreted by me (3pts min.). @ -[As above] X-rays interpreted by me (1pt min.). @ -[None done] CT interpreted by me (1pt min.). @ -[None done] U/S interpreted by me (1pt. min.). @ -[None done] What testing was considered but not performed or refused? (CT, X-rays, U/S, labs)? Why? @ -[None] What meds were considered but not given or refused? Why? @ -[None] Did you discuss the management of the patient with other professionals (professionals i.e. , PA, [employer], lab, RT, psych nurse, clinical social work therapist, quality assurance associate, teacher, dog license officer supervisor, case resource manager)? Give summary @ -[No] Was smoking cessation discussed for >3mins.? @ -[No] Was critical care preformed (if so, how long)? @ -[No] Were there social determinants of health that impacted care today? How? (Homel essness, low income, unemployed, alcoholism, drug addiction, transportation, low edu. Level, literacy, decrease access to med. care, snf, rehab)? @ -[No] Was there de-escalation of care discussed even if they declined (Discuss DNR or withdrawal of care, Hospice)? DNR status @ -[No] What co-morbidities impacted this encounter? (DM, HTN, Smoking, COPD, CAD, Cancer, CVA, ARF, Chemo, Hep., AIDS, mental health diagnosis, sleep apnea, morbid obesity)? @ -[Hypertension with ARISTEO inhibitor use Was patient admitted / discharged? Hospital course, mention meds given and route, prescriptions, significant lab abnormalities, going to OR and other pertinent info. @ -[Patient is discharged. Patient is a 38-year-old man who presents with angioedema. He does take antihypertensive containing benazepril. The patient did receive steroid here. He is having improvement and stable for discharge. He is instructed to stop the medication containing benazepril and to not take ARISTEO inhibitors. He will follow with his physician. Given prescription for alternative antihypertensive. Undiagnosed new problem with uncertain prognosis? @ -[No] Drug Therapy requiring intensive monitoring for toxicity (Heparin, Nitro, Insulin, Cardizem)? @ -[No] Were any procedures done? @ -[No] Diagnosis/symptom? @ -[Acute angioedema Chronic hypertension Acute, or Chronic, or Acute on Chronic? @ -[Acute Uncomplicated (without systemic symptoms) or Complicated (systemic symptoms)? @ -[Uncomplicated Side effects of treatment? @ -[No] Exacerbation, Progression, or Severe Exacerbation? @ -[No] Poses a threat to life or bodily function? How? (Chest pain, [place], [place], pneumonia, PE, COPD, DKA, ARF, appy, cholecystitis, CVA, Diverticulitis, Homicidal, Suicidal, threat to staff... and all critical care pts) @ -[No] Disposition Clinical Impression: Angioedema Disposition: HOME SELF-CARE Condition: Good Instructions (If sedation given, give patient instructions): Angioedema (ED) Additional Instructions: Stop taking the Lotrel. Follow-up with Dr. Diehl to have a substitute medication. We have prescribed the amlodipine portion to continue. Prescriptions: amLODIPine 10 mg PO DAILY #30 tab Is patient prescribed a controlled substance at d/c from ED?: No Referrals: Agustin Diehl DO [Primary Care Provider] - 1-2 days
[2023-11-16] MEDS: predniSONE 20 MG TAB PO STA (03:54)
== END 2023-11-16 04:00 | disposition home or self-care (01) ==
LOC: EC 02:54
DX: T78.3XXA Angioneurotic edema, initial encounter (principal); Z87.891 Personal history of nicotine dependence; Z88.6 Allergy status to analgesic agent
CPT/HCPCS: 99283; J7512

== ENCOUNTER 2024-08-16 10:51 | Emergency (ER) | payer BC ==
[2024-08-16 10:57] VITALS: RESP 20
--- NOTE | 2024-08-16 11:12 | ED ---
Eye Problem HPI - General Chief complaint: Eye Problems Stated complaint: R eye issue Time Seen by Provider: 08/16/24 11:03 Source: patient, RN notes reviewed Mode of arrival: ambulatory Limitations: no limitations - History of Present Illness Initial comments: This is a 39-year-old male with history of polycystic kidney disease and hypertension is presenting to the emergency department with right eye irritation. He states that about a week ago he noticed that his right eye was red when he went to urgent care he was diagnosed with a subconjunctival hemorrhage. He states over the past few days the redness has worsened and he has noticed bruising under his eye. He denies loss of visual acuity, pain, headaches, chest pain, heart palpitations, dizziness lightheadedness, peripheral edema, decreased urinary output. Patient states that he is "not great" and taking his amlodipine medication and he will frequently miss dosages with his last dose being on . 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 Denies known trauma or injury to the eye. - Related Data Home Medications Medication Instructions Recorded Confirmed amLODIPine BESYLATE/BENAZEPRIL 1 cap PO DAILY 09/15/21 09/15/21 [Lotrel 10-40 MG] carvediloL [Coreg] 6.25 mg PO BID 09/15/21 09/15/21 Previous Rx's Medication Instructions Recorded Cyclobenzaprine [Flexeril] 10 mg PO TID PRN #15 tab 09/15/21 Albuterol Inhaler [Ventolin Hfa 2 puff INHALATION TID #8 gm 10/02/22 Inhaler] Benzonatate [Tessalon Perles] 100 mg PO TID PRN #24 capsule 10/02/22 amLODIPine 10 mg PO DAILY #30 tab 11/16/23 Allergies Allergy/AdvReac Type Severity Reaction Status Date / Time ibuprofen AdvReac See Verified 08/16/24 10:57 comments Review of Systems ROS Statement: Those systems with pertinent positive or pertinent negative responses have been documented in the HPI. ROS Other: All systems not noted in ROS Statement are negative. Past Medical History Past Medical History: Hypertension, Renal Disease History of Any Multi-Drug Resistant Organisms: None Reported Past Surgical History: Hernia Repair Past Psychological History: Depression Smoking Status: Former smoker Past Alcohol Use History: None Reported Past Drug Use History: None Reported General Exam Limitations: no limitations General appearance: alert, in no apparent distress Expanded Eyelids: Swelling: Right Pupils: Regular, Round: Bilateral, Reactive: Bilateral Sclera/Conjunctival: Hemorrhage: Right IOP (R) in mmH IOP (L) in mmH IOP measured with: Tonopen Respiratory exam: Present: normal lung sounds bilaterally. Absent: respiratory distress, wheezes, rales, rhonchi, stridor Cardiovascular Exam: Present: regular rate, normal rhythm, normal heart sounds. Absent: systolic murmur, diastolic murmur, rubs, gallop, clicks GI/Abdominal exam: Present: soft, normal bowel sounds. Absent: distended, tenderness, guarding, rebound, rigid Extremities exam: Present: normal inspection, full ROM, normal capillary refill. Absent: tenderness, pedal edema, joint swelling, calf tenderness Neurological exam: Present: alert, oriented X3, CN II-XII intact Course Vital Signs 08/16/24 08/16/24 08/16/24 10:54 12:23 12:45 Temperature 97.5 F L Pulse Rate 97 87 Respiratory 20 Rate Blood Pressure 215/141 219/137 191/121 O2 Sat by Pulse 100 Oximetry 08/16/24 12:51 Temperature 98.1 F Pulse Rate 86 Respiratory 20 Rate Blood Pressure 191/118 O2 Sat by Pulse 100 Oximetry Medical Decision Making - Medical Decision Making Was pt. sent in by a medical professional or institution (ANIYA Martinez, ASSISTANT CHIEF OF POLICE, urgent care, hospital, or [place] health care facility...) When possible be specific @ -No Did you speak to anyone other than the patient for history (EMS, parent, family, police, friend...)? What history was obtained from this source @ -No Did you review nursing and triage notes (agree or disagree)? Why? @ -I reviewed and agree with nursing and triage notes Were old charts reviewed (outside hosp., previous admission, EMS record, old EKG, old radiological studies, urgent care reports/EKG's, [place] health care facility records)? Report findings @ -No old charts were reviewed Differential Diagnosis (chest pain, altered mental status, abdominal pain women, abdominal pain men, vaginal bleeding, weakness, fever, dyspnea, syncope, headache, dizziness, GI bleed, back pain, seizure, CVA, palpatations, mental health, musculoskeletal)? @ -Hypertensive urgency, hypertensive urgency, subconjunctival hemorrhage, corneal abrasion, hyphema, this list is not all inclusive EKG interpreted by me (3pts min.). @ -None X-rays interpreted by me (1pt min.). @ -None done CT interpreted by me (1pt min.). @ -None done U/S interpreted by me (1pt. min.). @ -None done What testing was considered but not performed or refused? (CT, X-rays, U/S, labs)? Why? @ -None What meds were considered but not given or refused? Why? @ -None Did you discuss the management of the patient with other professionals (professionals i.e. Dr., PA, ASSISTANT CHIEF OF POLICE, lab, RT, psych nurse, healthcare social worker, pan devulcanizer helper, teacher, accounting officer, binder caser)? Give summary @ -No Was smoking cessation discussed for >3mins.? @ -No Was critical care preformed (if so, how long)? @ -No Were there social determinants of health that impacted care today? How? (Homelessness, low income, unemployed, alcoholism, drug addiction, transporta tion, low edu. Level, literacy, decrease access to med. care, senior care, rehab)? @ -No Was there de-escalation of care discussed even if they declined (Discuss DNR or withdrawal of care, Hospice)? DNR status @ -No What co-morbidities impacted this encounter? (DM, HTN, Smoking, COPD, CAD, Cancer, CVA, ARF, Chemo, Hep., AIDS, mental health diagnosis, sleep apnea, morbid obesity)? @ -None Was patient admitted / discharged? Hospital course, mention meds given and route, prescriptions, significant lab abnormalities, going to OR and other pertinent info. @ -Discharge. 39-year-old male presenting with right eye irritation. Patient noted to be hypertensive on arrival with a blood pressure of 215/141. Visual acuity completed at bedside, will testing. Intraocular pressures completed with right eye 18 and left eye 16. Fluorescein staining remarkable for mild corneal abrasion. Exam shows a subconjunctival hemorrhage of the right lateral eye in addition to ecchymosis of the inferior eye. There are no red flag findings concerning for hypertensive urgency or emergency. Patient divided with home dose of amlodipine. Blood pressure has responded with a recheck of 191/118. Stressed importance of patient maintaining his blood pressure control at home with prescribed medications to follow-up with primary care provider and teamsite developer. Case discussed with Dr. Lay Undiagnosed new problem with uncertain prognosis? @ -No Drug Therapy requiring intensive monitoring for toxicity (Heparin, Nitro, Insulin, Cardizem)? @ -No Were any procedures done? @ -No Diagnosis/symptom? @ -Corneal abrasion, subconjunctival hemorrhage, hypertension Acute, or Chronic, or Acute on Chronic? @ -Acute Uncomplicated (without systemic symptoms) or Complicated (systemic symptoms)? @ -Complicated Side effects of treatment? @ -No Exacerbation, Progression, or Severe Exacerbation? @ -No Poses a threat to life or bodily function? How? (Chest pain, [place], [place], pneumonia, PE, COPD, DKA, ARF, appy, cholecystitis, CVA, Diverticulitis, Homicidal, Suicidal, threat to staff... and all critical care pts) @ -No Disposition Clinical Impression: Subconjunctival hemorrhage, Corneal abrasion Disposition: HOME SELF-CARE Condition: Good Instructions (If sedation given, give patient instructions): Subconjunctival Hemorrhage (ED), Chronic Hypertension (DC) Additional Instructions: Please return to the Emergency Department if symptoms worsen or any other concerns. Continue antibiotic drops 2 drops in the right eye every 6 hours for 1 week. As discussed. Follow-up with your primary care provider and teamsite developer. Continue to take antihypertensive as prescribed. Is patient prescribed a controlled substance at d/c from ED?: No Referrals: Agustin Diehl DO [Primary Care Provider] - 1-2 days Time of Disposition: 12:47
[2024-08-16] MEDS: PROPARACAINE 0.5% OPHTH DROPS 15 ML BTL RIGHT EYE STA (11:20)
[2024-08-16] MEDS: FLUORESCEIN STRIPS 1 MG STRIP RIGHT EYE ONE (11:20)
[2024-08-16] MEDS: amLODIPine 10 MG TAB PO STA (11:55)
[2024-08-16] MEDS: CIPROFLOXACIN 0.3% OPHTH SOLN 5 ML BTL RIGHT EYE STA (12:09)
[2024-08-16 12:53] VITALS: BP 191/118; PULSE 86; TEMP 98.1
== END 2024-08-16 12:53 | disposition home or self-care (01) ==
LOC: EC 10:51
DX: S05.01XA Injury of conjunctiva and corneal abrasion without foreign body, right eye, initial encounter (principal); H11.31 Conjunctival hemorrhage, right eye; I10 Essential (primary) hypertension; Q61.3 Polycystic kidney, unspecified; Z87.891 Personal history of nicotine dependence; Z88.6 Allergy status to analgesic agent
CPT/HCPCS: 99283

== ENCOUNTER 2024-08-31 14:12 | Inpatient (IN) | payer BC ==
--- NOTE | 2024-08-31 14:55 | ED ---
Abdominal Pain HPI - General Chief Complaint: Abdominal Pain Stated Complaint: pain from hernia Time Seen by Provider: 08/31/24 14:19 Source: patient Mode of arrival: wheelchair Limitations: no limitations - History of Present Illness Initial Comments: This patient is a 39-year-old man who states that he has had an umbilical hernia for quite a long time but that it became painful starting a little before noon. The patient also having nausea. He states that in the past when it would bulge out he was able to push it in but he is no longer able to reduce the hernia. MD Complaint: abdominal pain -: hour(s) Location: periumbilical Radiation: none Migration to: no migration Severity: severe Quality: aching, sharp Consistency: constant Improves With: nothing Worsens With: nothing Associated Symptoms: nausea - Related Data Home Medications Medication Instructions Recorded Confirmed Allergy Med Otc(Unknown) 1 tab PO DAILY 08/31/24 08/31/24 Previous Rx's Medication Instructions Recorded amLODIPine 10 mg PO DAILY #30 tab 11/16/23 HYDROcodone/APAP 5-325MG [[place] 1 tab PO Q6HR PRN 3 Days #12 tab 09/03/24 5-325] Calcium Carbonate [Tums] 1,000 mg PO BID 30 Days #60 tab 09/05/24 Ergocalciferol [Vitamin D2 (1250 1,250 mcg PO WEEKLY #8 cap 09/05/24 Mcg = 80957 Iu)] Ferrous Sulfate [Feosol] 325 mg PO BID 30 Days #60 tab 09/05/24 Levofloxacin [Levaquin] 250 mg PO DAILY 7 Days #7 tablet 09/05/24 carvediloL [Coreg] 12.5 mg PO BID 30 Days #90 tablet 09/05/24 Allergies Allergy/AdvReac Type Severity Reaction Status Date / Time ibuprofen AdvReac See Verified 09/01/24 16:07 comments Review of Systems ROS Statement: Those systems with pertinent positive or pertinent negative responses have been documented in the HPI. ROS Other: All systems not noted in ROS Statement are negative. Constitutional: Denies: fever, chills, weakness Respiratory: Denies: cough, dyspnea Cardiovascular: Denies: chest pain, palpitations, edema, syncope Gastrointestinal: Reports: abdominal pain, nausea. Denies: vomiting, diarrhea, constipation, melena, hematochezia Genitourinary: Denies: dysuria, hematuria Musculoskeletal: Denies: back pain Skin: Denies: rash Neurological: Denies: headache, weakness Past Medical History Past Medical History: Hypertension, Renal Disease Additional Past Medical History / Comment(s): umbilical hernia History of Any Multi-Drug Resistant Organisms: None Reported Past Surgical History: Hernia Repair Past Psychological History: Depression Smoking Status: Former smoker Past Alcohol Use History: None Reported Past Drug Use History: None Reported General Exam Limitations: no limitations General appearance: alert Head exam: Present: atraumatic, normocephalic Eye exam: Present: normal appearance. Absent: scleral icterus, conjunctival injection ENT exam: Present: normal oropharynx Neck exam: Present: normal inspection Respiratory exam: Present: normal lung sounds bilaterally. Absent: respiratory distress, wheezes, rales, rhonchi, stridor, accessory muscle use Cardiovascular Exam: Present: regular rate, normal rhythm, normal heart sounds. Absent: systolic murmur, diastolic murmur, rubs, gallop GI/Abdominal exam: Present: tenderness, guarding, hernia. Absent: distended, rebound, rigid, mass, pulsatile mass Extremities exam: Present: normal inspection, normal capillary refill. Absent: pedal edema, calf tenderness Back exam: Present: normal inspection. Absent: CVA tenderness (R), CVA tenderness (L) Neurological exam: Present: alert Skin exam: Present: warm, dry, intact, normal color. Absent: rash Course Vital Signs 08/31/24 08/31/24 08/31/24 14:13 16:29 17:00 Temperature 97.5 F L 98.0 F 97.8 F Pulse Rate 115 H 102 H 92 Respiratory 20 20 15 Rate Blood Pressure 185/116 180/108 178/98 O2 Sat by Pulse 99 98 98 Oximetry 08/31/24 08/31/24 08/31/24 19:00 22:00 23:12 Temperature 98.0 F 97.6 F 98.0 F Pulse Rate 87 95 92 Respiratory 18 17 20 Rate Blood Pressure 179/110 168/100 165/97 O2 Sat by Pulse 99 97 98 Oximetry 09/01/24 09/01/24 09/01/24 04:14 06:10 07:54 Temperature Pulse Rate 105 H 101 H 96 Respiratory 18 18 18 Rate Blood Pressure 157/109 148/96 O2 Sat by Pulse 99 99 98 Oximetry 09/01/24 09/01/24 09/01/24 10:48 11:39 13:57 Temperature 98 F Pulse Rate 99 Respiratory 18 Rate Blood Pressure 160/111 165/106 147/100 O2 Sat by Pulse 97 Oximetry 09/01/24 09/01/24 09/01/24 14:07 14:27 15:09 Temperature 98 F 97.9 F Pulse Rate 102 H 100 96 Respiratory 18 18 18 Rate Blood Pressure 154/106 141/97 139/89 O2 Sat by Pulse 97 97 100 Oximetry - Reevaluation(s) Reevaluation #1: 08/31/24 14:[address] Mesa, who will view the CT scan and see patient Medical Decision Making - Medical Decision Making The patient had CT scan of the abdomen that I interpreted to show incarcerated umbilical hernia. No free air. Was pt. sent in by a medical professional or institution (, PA, BLUEPRINT BLOCKER, urgent care, hospital, or correction...) When possible be specific @ -[No] Did you speak to anyone other than the patient for history (EMS, parent, family, police, friend...)? What history was obtained from this source @ -[No] Did you review nursing and triage notes (agree or disagree)? Why? @ -[I reviewed and agree with nursing and triage notes] Were old charts reviewed (outside hosp., previous admission, EMS record, old EKG, old radiological studies, urgent care reports/EKG's, correction records)? Report findings @ -[No old charts were reviewed] Differential Diagnosis (chest pain, altered mental status, abdominal pain women, abdominal pain men, vaginal bleeding, weakness, fever, dyspnea, syncope, headache, dizziness, GI bleed, back pain, seizure, CVA, palpatations, mental h ealth, musculoskeletal)? @ -[Differential Abdominal Pain Men: Appendicitis, cholecystitis, diverticulosis, ischemic bowel, pancreatitis, hepatitis, UTI, gastroenteritis, AAA, incarcerated hernia, bowel obstruction, constipation, inflammatory bowel, hepatitis, peptic ulcer disease, splenic infarction, perforated viscus, testicular torsion, this is not meant to be an all-inclusive list EKG interpreted by me (3pts min.). @ -[As above] X-rays interpreted by me (1pt min.). @ -[None done] CT interpreted by me (1pt min.). @ -[I interpreted as above U/S interpreted by me (1pt. min.). @ -[None done] What testing was considered but not performed or refused? (CT, X-rays, U/S, labs)? Why? @ -[None] What meds were considered but not given or refused? Why? @ -[None] Did you discuss the management of the patient with other professionals (professionals i.e. , PA, BLUEPRINT BLOCKER, lab, RT, psych nurse, social media executive, development consultant, teacher, special forces officer, transplant case manager)? Give summary @ -[Yes, see above Was smoking cessation discussed for >3mins.? @ -[No] Was critical care preformed (if so, how long)? @ -[No] Were there social determinants of health that impacted care today? How? (Homelessness, low income, unemployed, alcoholism, drug addiction, transportation, low edu. Level, literacy, decrease access to med. care, intermediate, rehab)? @ -[No] Was there de-escalation of care discussed even if they declined (Discuss DNR or withdrawal of care, Hospice)? DNR status @ -[No] What co-morbidities impacted this encounter? (DM, HTN, Smoking, COPD, CAD, Cancer, CVA, ARF, Chemo, Hep., AIDS, mental health diagnosis, sleep apnea, morbid obesity)? @ -[Umbilical hernia Was patient admitted / discharged? Hospital course, mention meds given and route, prescriptions, significant lab abnormalities, going to OR and other pertinent info. @ -[Patient is 39-year-old man presenting with abdominal pain and hernia that he is no longer able to reduce. I was not able to reduce the hernia at bedside. On return of the patient from CT I interpreted the study and discussed with surgery and patient is admitted. Undiagnosed new problem with uncertain prognosis? @ -[No] Drug Therapy requiring intensive monitoring for toxicity (Heparin, Nitro, Insulin, Cardizem)? @ -[No] Were any procedures done? @ -[No] Diagnosis/symptom? @ -[Incarcerated umbilical hernia Acute abdominal pain Acute, or Chronic, or Acute on Chronic? @ -[Acute Uncomplicated (without systemic symptoms) or Complicated (systemic symptoms)? @ -[default] Side effects of treatment? @ -[No] Exacerbation, Progression, or Severe Exacerbation? @ -[No] Poses a threat to life or bodily function? How? (Chest pain, [place], [place], pneumonia, PE, COPD, DKA, ARF, appy, cholecystitis, CVA, Diverticulitis, Homicidal, Suicidal, threat to staff... and all critical care pts) @ -[Low risk though require surgery to ensure no bowel infarction All treatments are based on ideal body weight as in ED triage - Lab Data Result diagrams: 09/05/24 04:53 09/05/24 04:53 Lab Results 08/31/24 08/31/24 08/31/24 Range/Units 15:00 15:00 15:00 WBC 14.1 H (3.8-10.6) k/uL RBC 2.77 L (4.30-5.90) m/uL Hgb 7.8 L (13.0-17.5) gm/dL Hct 24.4 L (39.0-53.0) % MCV 88.1 (80.0-100.0) fL MCH 28.3 (25.0-35.0) pg MCHC 32.1 (31.0-37.0) g/dL RDW 14.8 (11.5-15.5) % Plt Count 445 (150-450) k/uL MPV 6.8 Neutrophils % 87 % Lymphocytes % 7 % Monocytes % 3 % Eosinophils % 2 % Basophils % 0 % Neutrophils # 12.2 H (1.3-7.7) k/uL Lymphocytes # 0.9 L (1.0-4.8) k/uL Monocytes # 0.5 (0-1.0) k/uL Eosinophils # 0.3 (0-0.7) k/uL Basophils # 0.1 (0-0.2) k/uL PT 10.3 (10.0-12.5) sec INR 0.9 (<1.2) APTT 25.1 (22.0-30.0) sec Sodium 143 (137-145) mmol/L Potassium 4.5 (3.5-5.1) mmol/L Chloride 109 H (98-107) mmol/L Carbon Dioxide 15 L (22-30) mmol/L Anion Gap 19 mmol/L BUN 118 H* (9-20) mg/dL Creatinine 8.67 H* (0.66-1.25) mg/dL Est GFR (CKD-EPI)AfAm 8 (>60 ml/min/1.73 sqM) Est GFR (CKD-EPI)NonAf 7 (>60 ml/min/1.73 sqM) Glucose 99 (74-99) mg/dL Plasma Lactic Acid Joshua (0.7-2.0) mmol/L Calcium 7.1 L (8.4-10.2) mg/dL Total Bilirubin 0.4 (0.2-1.3) mg/dL AST 16 L (17-59) U/L ALT 17 (4-49) U/L Alkaline Phosphatase 98 (38-126) U/L Total Protein 7.0 (6.3-8.2) g/dL Albumin 4.0 (3.5-5.0) g/dL Blood Type Confirm 08/31/24 08/31/24 Range/Units 15:00 15:00 WBC (3.8-10.6) k/uL RBC (4.30-5.90) m/uL Hgb (13.0-17.5) gm/dL Hct (39.0-53.0) % MCV (80.0-100.0) fL MCH (25.0-35.0) pg MCHC (31.0-37.0) g/dL RDW (11.5-15.5) % Plt Count (150-450) k/uL MPV Neutrophils % % Lymphocytes % % Monocytes % % Eosinophils % % Basophils % % Neutrophils # (1.3-7.7) k/uL Lymphocytes # (1.0-4.8) k/uL Monocytes # (0-1.0) k/uL Eosinophils # (0-0.7) k/uL Basophils # (0-0.2) k/uL PT (10.0-12.5) sec INR (<1.2) APTT (22.0-30.0) sec Sodium (137-145) mmol/L Potassium (3.5-5.1) mmol/L Chloride (98-107) mmol/L Carbon Dioxide (22-30) mmol/L Anion Gap mmol/L BUN (9-20) mg/dL Creatinine (0.66-1.25) mg/dL Est GFR (CKD-EPI)AfAm (>60 ml/min/1.73 sqM) Est GFR (CKD-EPI)NonAf (>60 ml/min/1.73 sqM) Glucose (74-99) mg/dL Plasma Lactic Acid Joshua 0.9 (0.7-2.0) mmol/L Calcium (8.4-10.2) mg/dL Total Bilirubin (0.2-1.3) mg/dL AST (17-59) U/L ALT (4-49) U/L Alkaline Phosphatase (38-126) U/L Total Protein (6.3-8.2) g/dL Albumin (3.5-5.0) g/dL Blood Type Confirm O Positive Disposition Clinical Impression: Incarcerated umbilical hernia Disposition: ADMITTED IP TO THIS HOSP Condition: Fair
--- NOTE | 2024-08-31 14:58 | XR ---
EXAMINATION TYPE: XR KUB DATE OF EXAM: 08/31/2024 2:39 PM COMPARISON: 09/16/2016 CLINICAL INDICATION: Male, 39 years old with history of abdominal pain; TECHNIQUE: One radiographic view of the abdomen was obtained. FINDINGS: The bowel gas pattern is nonspecific without dilated loops of small or large bowel. . Fecal material and gas are demonstrated throughout the colon and rectum. There is no evidence for organome kimber or pneumoperitoneum. No acute osseous process. No abnormal calcifications are present. Remote appearing right rib 11 fracture. IMPRESSION: Nonspecific bowel gas pattern without radiographic evidence for acute process. [facility], , 08/31/2024 2:56 PM
--- NOTE | 2024-08-31 15:10 | CT ---
EXAMINATION TYPE: CT abdomen pelvis wo con DATE OF EXAM: 08/31/2024 2:54 PM COMPARISON: CT abdomen pelvis most recent from 02/10/2023 CLINICAL INDICATION: Male, 39 years old with history of umbilical hernia, pain; umbilical hernia TECHNIQUE: Axial CT abdomen pelvis wo con;Sagittal and coronal reformats were created on a separate workstation. Contrast used: mL of , (none if empty) Oral contrast used: without Oral Contrast (none if empty) CT DLP: 1138.2 mGycm, Automated exposure control for dose reduction was used. FINDINGS: LOWER CHEST: Posterior right rib 11, 8 and 7 fractures with callus formation. ABDOMEN LIVER: Unremarkable GALLBLADDER AND BILE DUCTS: Unremarkable. PANCREAS: Unremarkable. SPLEEN: Unremarkable. ADRENAL GLANDS: Unremarkable. KIDNEYS AND URETERS: Kidneys are enlarged with multiple renal cysts bilaterally. The largest on the r ight medial aspect may have hemorrhage in this cyst measuring up to 17.2 x 9.0 cm. Other hyperdense r enal cysts are seen bilaterally. No Evidence of hydronephrosis or renal calculus. The ureters are unr emarkable. PELVIS BLADDER: No evidence for wall thickening or mass given limitations of exam. REPRODUCTIVE: Unremarkable. ABDOMEN & PELVIS STOMACH AND BOWEL: Small hiatal hernia, duodenum is unremarkable No evidence of bowel obstruction. Or scattered colonic diverticula. Fat-containing left inguinal canal. PERITONEUM/RETROPERITONEUM: No evidence of pneumoperitoneum or free fluid. VASCULATURE: No evidence of aortic aneurysm. MUSCULOSKELETAL: No acute osseous abnormalities LYMPH NODES: No gross evidence for lymphadenopathy. SOFT TISSUE/ABDOMINAL WALL: Fat-containing umbilical hernia containing loop of small bowel. Relativel y nondistention of the bowel exiting the hernia. Hernia neck measures at least 36 x 29 mm IMPRESSION: 1. Umbilical hernia containing loop of small bowel with nondistended bowel extending away from this loop. Findings suggest at least partial bowel obstruction. Consider Gastrografin small bowel follow-t hrough. 2. Enlarged polycystic kidneys with medial right renal cyst which may have a hemorrhagic component. Other hyperdense cysts present bilaterally. At least one of the right inferior medial sesamoid is sig nificantly increased in size from prior. Consider MRI for evaluation of these renal cysts. 3. The appendix is normal. 4. Remote appearing right-sided rib fractures including ribs 11, 8 and 7. 5. Colonic diverticulosis. 6. Small hiatal hernia. [facility], , 08/31/2024 3:07 PM
[2024-08-31] MEDS: SODIUM CHLORIDE 0.9% 500 ML 500 ML IV STA (15:13)
[2024-08-31] MEDS: MORPHINE SULFATE 4 MG/ML SYRINGE IV STA (15:13)
[2024-08-31] MEDS ORDERED: NALOXONE 0.4 MG/ML 1 ML VIAL IV PRN (15:23)
[2024-08-31 15:28] LABS: Basophils # (A) 0.1 k/uL (0-0.2); Basophils % (A) 0 %; Eosinophils # (A) 0.3 k/uL (0-0.7); Eosinophils % (A) 2 %; HCT 24.4 % (39.0-53.0); HGB 7.8 gm/dL (13.0-17.5); Lymphocytes # (A) 0.9 k/uL (1.0-4.8); Lymphocytes % (A) 7 %; MCH 28.3 pg (25.0-35.0); MCHC 32.1 g/dL (31.0-37.0); MCV 88.1 fL (80.0-100.0); Mean Platelet Volume 6.8; Monocytes # (A) 0.5 k/uL (0-1.0); Monocytes % (A) 3 %; Neutrophils # (A) 12.2 k/uL (1.3-7.7); Neutrophils % (A) 87 %; Platelet Count 445 k/uL (150-450); RBC 2.77 m/uL (4.30-5.90); RDW 14.8 % (11.5-15.5); WBC 14.1 k/uL (3.8-10.6)
[2024-08-31 15:33] LABS: INR 0.9 (<1.2); Partial Thromboplastin Time 25.1 sec (22.0-30.0); Prothrombin Time 10.3 sec (10.0-12.5)
[2024-08-31 16:02] LABS: ALT 17 U/L (4-49); AST 16 U/L (17-59); African American GFR (CKD) 8 (>60 ml/min/1.73 sqM); Alkaline Phosphatase 98 U/L (38-126); Anion Gap 19 mmol/L; Calcium 7.1 mg/dL (8.4-10.2); Carbon Dioxide 15 mmol/L (22-30); Chloride 109 mmol/L (98-107); Glucose 99 mg/dL (74-99); Non-African American GFR(CKD) 7 (>60 ml/min/1.73 sqM); Potassium 4.5 mmol/L (3.5-5.1); Sodium 143 mmol/L (137-145); Total Bilirubin 0.4 mg/dL (0.2-1.3)
[2024-08-31] MEDS: SODIUM CHLORIDE 0.9% 1,000 ML IV SCH (16:31)
[2024-08-31] MEDS: hydrALAZINE HCL 20 MG/ML 1 ML VIAL IVP STA (16:32)
[2024-08-31] MEDS: AMPICILLIN-SULBACTAM 3 GM in SODIUM CHLORIDE 0.9% 100 ML IVPB STA (16:32)
[2024-08-31 16:45] LABS: Blood Urea Nitrogen 118 mg/dL (9-20)
[2024-08-31] MEDS: amLODIPine 10 MG TAB PO STA (21:25)
[2024-09-01] MEDS: MORPHINE SULFATE 4 MG/ML SYRINGE IV PRN (04:17)
[2024-09-01] MEDS: amLODIPine 10 MG TAB PO SCH (10:51)
--- NOTE | 2024-09-01 11:18 | P.GSCN ---
History of Present Illness Consult date: 09/01/24 History of present illness: CHIEF COMPLAINT: Pain at umbilical hernia site HISTORY OF PRESENT ILLNESS: This is a 39-year-old male with a known history of umbilical hernia for about 7 years. He reports yesterday he had increased pain at the umbilical hernia and it was not able to be reduced. He denies any nausea or vomiting. He reports having a bowel movement yesterday and has had flatus. Patient reports that the umbilical hernia was very hard and firm. He reports feeling better currently after receiving pain medication. He had a CT scan abdomen pelvis that reported umbilical hernia containing small bowel with a suspected partial small bowel obstruction. Patient has a prior surgical history of a hernia repair. Patient is anemic. Hemoglobin is 7.8. Denies any prior history of anemia or requiring blood transfusion. Denies any signs or symptoms of active bleeding. PAST MEDICAL HISTORY: Hypertension, polycystic kidney disease, renal disease, umbilical hernia PAST SURGICAL HISTORY: Hernia repair MEDICATIONS: See below ALLERGIES: See below SOCIAL HISTORY: No illicit drug use. REVIEW OF SYSTEMS: CONSTITUTIONAL: Denies fever or chills. HEENT: Denies blurred vision, vision changes, or eye pain. Denies hemoptysis CARDIOVASCULAR: Denies chest pain or pressure. RESPIRATORY: No shortness of breath. GASTROINTESTINAL: See HPI for pertinent findings HEMATOLOGIC: Denies bleeding disorders. GENITOURINARY: Denies any blood in urine or increased urinary frequency. SKIN: Denies pruitis. Denies rash. PHYSICAL EXAM: VITAL SIGNS: Reviewed GENERAL: Well-developed in no acute distress. HEENT: No sclera icterus. Extraocular movements grossly intact. Moist buccal mucosa. Head is atraumatic, normocephalic. No nasal drainage. ABDOMEN: Soft. Nondistended. Tenderness palpation umbilical hernia. Hernia is currently soft. No discoloration. No guarding. NEUROLOGIC: Alert and oriented. Cranial nerves II through XII grossly intact. LABORATORY DATA: WBC 14.1 Hgb 7.8 platelets 455 INR 0.9 Sodium 143 potassium 4.5 creatinine 8.67 BUN 118 Lactic acid 0.9 IMAGING: CT scan abdomen pelvis reports umbilical hernia containing loop of small bowel with nondistended bowel extending away from this loop. Findings suggest at least partial bowel obstruction. Enlarged polycystic kidneys with medial right renal cyst which may have a hemorrhagic component. Other hyperdense cysts present bilaterally. At least one of the right inferior medial sesamoid is significantly increased in size. Appendix normal. Remote appearing right sided rib fractures 11 8 and 7. Colonic diverticulosis. Small hiatal hernia. ASSESSMENT: 1. Incarcerated umbilical hernia 2. Anemia 3. Acute kidney injury 4. Polycystic kidney disease PLAN: -Patient scheduled for open repair of incarcerated umbilical hernia today with Dr. Meas -Transfuse 1 unit of blood for hemoglobin of 7.8 -Keep patient n.p.o. -Repeat CBC and BMP now -Continue IV fluids -Continue pain management -Continue antibiotics -Nephrology on consult for patient's renal disease Physician Payment Manager note has been reviewed by physician. Signing provider agrees with the documented findings, assessment, and plan of care. Past Medical History Past Medical History: Hypertension, Renal Disease Additional Past Medical History / Comment(s): umbilical hernia History of Any Multi-Drug Resistant Organisms: None Reported Past Surgical History: Hernia Repair Past Psychological History: Depression Smoking Status: Former smoker Past Alcohol Use History: None Reported Past Drug Use History: None Reported Medications and Allergies Home Medications Medication Instructions Recorded Confirmed Type amLODIPine 10 mg PO DAILY #30 tab 11/16/23 08/31/24 Rx Allergy Med Otc(Unknown) 1 tab PO DAILY 08/31/24 08/31/24 History Allergies Allergy/AdvReac Type Severity Reaction Status Date / Time ibuprofen AdvReac See Verified 08/31/24 17:08 comments Surgical - Exam Vital Signs Temp Pulse Resp BP Pulse Ox 97.5 F L 115 H 20 185/116 99 08/31/24 14:13 08/31/24 14:13 08/31/24 14:13 08/31/24 14:13 08/31/24 14:13 Results - Labs 08/31/24 15:00 08/31/24 15:00 Abnormal Lab Results - Last 24 Hours (Table) 08/31/24 08/31/24 Range/Units 15:00 15:00 WBC 14.1 H (3.8-10.6) k/uL RBC 2.77 L (4.30-5.90) m/uL Hgb 7.8 L (13.0-17.5) gm/dL Hct 24.4 L (39.0-53.0) % Neutrophils # 12.2 H (1.3-7.7) k/uL Lymphocytes # 0.9 L (1.0-4.8) k/uL Chloride 109 H (98-107) mmol/L Carbon Dioxide 15 L (22-30) mmol/L BUN 118 H* (9-20) mg/dL Creatinine 8.67 H* (0.66-1.25) mg/dL Calcium 7.1 L (8.4-10.2) mg/dL AST 16 L (17-59) U/L Diabetes panel 08/31/24 Range/Units 15:00 Sodium 143 (137-145) mmol/L Potassium 4.5 (3.5-5.1) mmol/L Chloride 109 H (98-107) mmol/L Carbon Dioxide 15 L (22-30) mmol/L BUN 118 H* (9-20) mg/dL Creatinine 8.67 H* (0.66-1.25) mg/dL Glucose 99 (74-99) mg/dL Calcium 7.1 L (8.4-10.2) mg/dL AST 16 L (17-59) U/L ALT 17 (4-49) U/L Alkaline Phosphatase 98 (38-126) U/L Total Protein 7.0 (6.3-8.2) g/dL Albumin 4.0 (3.5-5.0) g/dL Calcium panel 08/31/24 Range/Units 15:00 Calcium 7.1 L (8.4-10.2) mg/dL Albumin 4.0 (3.5-5.0) g/dL Pituitary panel 08/31/24 Range/Units 15:00 Sodium 143 (137-145) mmol/L Potassium 4.5 (3.5-5.1) mmol/L Chloride 109 H (98-107) mmol/L Carbon Dioxide 15 L (22-30) mmol/L BUN 118 H* (9-20) mg/dL Creatinine 8.67 H* (0.66-1.25) mg/dL Glucose 99 (74-99) mg/dL Calcium 7.1 L (8.4-10.2) mg/dL Adrenal panel 08/31/24 Range/Units 15:00 Sodium 143 (137-145) mmol/L Potassium 4.5 (3.5-5.1) mmol/L Chloride 109 H (98-107) mmol/L Carbon Dioxide 15 L (22-30) mmol/L BUN 118 H* (9-20) mg/dL Creatinine 8.67 H* (0.66-1.25) mg/dL Glucose 99 (74-99) mg/dL Calcium 7.1 L (8.4-10.2) mg/dL Total Bilirubin 0.4 (0.2-1.3) mg/dL AST 16 L (17-59) U/L ALT 17 (4-49) U/L Alkaline Phosphatase 98 (38-126) U/L Total Protein 7.0 (6.3-8.2) g/dL Albumin 4.0 (3.5-5.0) g/dL
[2024-09-01 11:25] LABS: Basophils % (A) 0 %; Eosinophils # (A) 0.3 k/uL (0-0.7); Eosinophils % (A) 2 %; HCT 23.2 % (39.0-53.0); HGB 7.4 gm/dL (13.0-17.5); Lymphocytes # (A) 0.9 k/uL (1.0-4.8); Lymphocytes % (A) 9 %; MCH 28.2 pg (25.0-35.0); MCHC 31.9 g/dL (31.0-37.0); MCV 88.4 fL (80.0-100.0); Mean Platelet Volume 7.9; Monocytes # (A) 0.4 k/uL (0-1.0); Monocytes % (A) 4 %; Neutrophils # (A) 8.6 k/uL (1.3-7.7); Neutrophils % (A) 83 %; Platelet Count 404 k/uL (150-450); RBC 2.62 m/uL (4.30-5.90); RDW 15.2 % (11.5-15.5); WBC 10.4 k/uL (3.8-10.6)
[2024-09-01] MEDS ORDERED: AMPICILLIN-SULBACTAM 3 GM in SODIUM CHLORIDE 0.9% 100 ML IVPB SCH (11:30)
[2024-09-01 11:43] LABS: African American GFR (CKD) 8 (>60 ml/min/1.73 sqM); Anion Gap 17 mmol/L; Calcium 7.2 mg/dL (8.4-10.2); Carbon Dioxide 15 mmol/L (22-30); Chloride 109 mmol/L (98-107); Glucose 82 mg/dL (74-99); Non-African American GFR(CKD) 7 (>60 ml/min/1.73 sqM); Potassium 5.1 mmol/L (3.5-5.1); Sodium 141 mmol/L (137-145)
[2024-09-01] MEDS: AMPICILLIN-SULBACTAM 3 GM in SODIUM CHLORIDE 0.9% 100 ML IVPB SCH (11:45)
[2024-09-01 11:46] LABS: Blood Urea Nitrogen 111 mg/dL (9-20)
--- NOTE | 2024-09-01 14:21 | P.NPCON ---
History of Present Illness - Reason for Consult Consult date: 09/01/24 - History of Present Illness Patient is an 39-year-old male with history of umbilical hernia, CKD stage IV or V, baseline unclear with polycystic kidney disease diagnosed at since at least 2016. He is admitted to the hospital due to abdominal pain from umbilical hernia. Pain is overall improved since admission. Serum creatinine 8.6 on admission and now slightly increased at 8.9. Previous serum creatinine 8.7 on last admission 10 days ago and 3.4 previous to that in June 2023 He is having no stated issues with urine output and making urine at this time. Blood pressure maintained on amlodipine 10 mg at home. No NSAIDs noted. No known episodes of hypotension, today blood pressure elevated Initially had some nausea, which is now improved, no vomiting Abdominal CT with no evidence of hydronephrosis or renal calculus, multiple renal cysts bilaterally largest on right medial aspect may have hemorrhage. Serum BUN was 118 on admission and now in 111. Past Medical History Past Medical History: Hypertension, Renal Disease Additional Past Medical History / Comment(s): umbilical hernia History of Any Multi-Drug Resistant Organisms: None Reported Past Surgical History: Hernia Repair Past Psychological History: Depression Smoking Status: Former smoker Past Alcohol Use History: None Reported Past Drug Use History: None Reported Medications and Allergies Home Medications Medication Instructions Recorded Confirmed Type amLODIPine 10 mg PO DAILY #30 tab 11/16/23 08/31/24 Rx Allergy Med Otc(Unknown) 1 tab PO DAILY 08/31/24 08/31/24 History Allergies Allergy/AdvReac Type Severity Reaction Status Date / Time ibuprofen AdvReac See Verified 09/01/24 16:07 comments Physical Exam Vitals: Vital Signs Temp Pulse Resp BP Pulse Ox 09/01/24 11:39 165/106 09/01/24 10:48 160/111 09/01/24 07:54 96 18 98 09/01/24 06:10 101 H 18 148/96 99 09/01/24 04:14 105 H 18 157/109 99 08/31/24 23:12 98.0 F 92 20 165/97 98 08/31/24 22:00 97.6 F 95 17 168/100 97 08/31/24 19:00 98.0 F 87 18 179/110 99 08/31/24 17:00 97.8 F 92 15 178/98 98 08/31/24 16:29 98.0 F 102 H 20 180/108 98 08/31/24 14:13 97.5 F L 115 H 20 185/116 99 Patient is awake, comfortable, no acute distress. Obese. Examination of the heart S1 and S2 Examination of the lungs bilateral breath sounds are heard, no basal crackles Abdomen is soft, distended, nontender Examination of lower extremities shows no edema SDE exam is grossly intact. Results - Lab Results Most recent lab results Calcium 7.2 mg/dL (8.4-10.2) L 09/01/24 11:07 09/02/24 04:21 09/02/24 04:21 Assessment and Plan Assessment: 1. DANIELLA versus possible progression of CKD, secondary to ATN from polycystic kidney disease diagnosed since at least 2016, nonoliguric. UA in 2022 with proteinuria. Initial creatinine 8.67, creatinine today 8.94, baseline creatinine unclear. 3.4 in June 2023 and 8.9 on 08/22/24 2. Stage IV or stage V CKD, from polycystic kidney disease, baseline unclear, Previous serum creatinine 8.7 on last admission 10 days ago and 3.4 previous to that in June 2023. BUN 118 on admission now 111. No signs of uremic encephalopathy. 3. Anion gap metabolic acidosis, likely from CKD 4. Anemia, hemoglobin 7.8 on admission now 7.4 5. Hypertension, on home amlodipine 6. Incarcerated umbilical hernia Plan: Discussed plans for renal replacement therapy at length, no plans for dialysis at this time, patient with no uremic symptoms Urinalysis ordered Begin IV D5W with bicarbonate at 125 cc/h Iron panel with ferritin pending Begin Aranesp 40 mcg subcu q7d 1 unit of packed RBC transfused Consider adding Coreg if BP uncontrolled Patient to undergo open repair of umbilical hernia today Thank you for the consultation. We will continue to follow the patient with you during his hospitalization. Patient is seen and examined with the resident. Agree with findings assessment and plan.
[2024-09-01] MEDS: PANTOPRAZOLE 40 MG/10 ML VIAL IVP SCH (14:45)
[2024-09-01] MEDS: DEXTROSE 5% IN WATER 1,000 ML with SODIUM BICARB (1 MEQ/ML) 150 ML IV SCH (14:47)
[2024-09-01] MEDS: IV FLUID CONTINUATION 1,000 ML IV ONE (16:05)
[2024-09-01] MEDS: DEXAMETHASONE SOD PHOSPHATE 4 MG/ML 1 ML VIAL IVP STA (16:16)
[2024-09-01] MEDS: ONDANSETRON 4 MG/2 ML VIAL IVP PRN (16:17)
[2024-09-01] MEDS ORDERED: SUCCINYLCHOLINE CHLORIDE 200 MG/10 ML VIAL IV ONE (16:40)
[2024-09-01] MEDS ORDERED: MIDAZOLAM 2 MG/2 ML VIAL ONE (16:40)
[2024-09-01] MEDS ORDERED: LIDOCAINE 1% INJ 10MG/ML (20 ML MDV) ONE (16:40)
[2024-09-01] MEDS ORDERED: fentaNYL (PF) 50 MCG/ML 2 ML AMP ONE (16:40)
[2024-09-01] MEDS ORDERED: PROPOFOL 10 MG/ML 20 ML VIAL IV ONE (16:40)
[2024-09-01] MEDS ORDERED: NEOSTIGMINE 1 MG/ML 10 ML VIAL ONE (16:40)
[2024-09-01] MEDS ORDERED: GLYCOPYRROLATE 0.2 MG/ML 2 ML VIAL ONE (16:40)
[2024-09-01] MEDS ORDERED: ROCURONIUM 10 MG/ML (5 ML VIAL) IV ONE (16:40)
[2024-09-01] MEDS ORDERED: HYDROmorphone 1 MG/ML 1 ML SYRINGE IVP PRN (17:25)
[2024-09-01] MEDS ORDERED: ONDANSETRON 4 MG/2 ML VIAL IVP PRN (17:25)
--- NOTE | 2024-09-01 17:25 | P.OP ---
Date of Procedure: 09/01/24 Preoperative Diagnosis: Incarcerated umbilical hernia Postoperative Diagnosis: incarcerated umbilical hernia Procedure(s) Performed: Open repair of incarcerated umbilical hernia Partial omentectomy Anesthesia: COLEEN Surgeon: Rojelio Meas Estimated Blood Loss (ml): 10 Pathology: other (Omentum) Condition: stable Disposition: PACU Description of Procedure: The patient is placed on the operative table in the supine position. He received general endotracheal anesthesia. His abdomen was prepped and draped in usual fashion. The skin was incised above the hernia. The hernia measured approximately 10 cm diameter. Use electrocautery subcu tissue divided. And that hernia sac was dissected free from subcu tissues. The hernia sac was opened. The incarcerated mentum was then transected with the LigaSure device. Specimen of the pathology. The fascial defect then closed using [id number] 0 Ethibond suture. The skin was then closed with stephon. Patient tolerated well. Sent to recovery room in stable condition.
[2024-09-01] MEDS: HYDROmorphone 0.5 MG/0.5 ML SYRINGE IVP STA (17:46)
[2024-09-01] MEDS: DARBEPOETIN ALFA 40 MCG/0.4 ML SYRINGE SQ SCH (21:42)
[2024-09-02 04:42] LABS: Appearance,Urine Clear (Clear); Bacteria,Urine Rare /hpf; Bilirubin,Urine Negative (Negative); Blood,Urine Small (Negative); Color,Urine Colorless; Glucose,Urine (UA) 1+ (Negative); Ketones,Urine Negative (Negative); Leukocyte Esterase,Urine Negative (Negative); Nitrite,Urine Negative (Negative); PH, Urine 6.5 (5.0-8.0); Protein,Urine 2+ (Negative); RBC,Urine <1 /hpf (0-5); Specific Gravity,Urine 1.009 (1.001-1.035); Squamous Epithelial Cell,Urine <1 /hpf (0-4); Urobilinogen,Urine <2.0 mg/dL (<2.0); WBC,Urine 1 /hpf (0-5)
[2024-09-02 08:52] LABS: % Iron Saturation 11.39 (15.00-50.00); BUN/Creat Ratio 12.35 Ratio (12.00-20.00); Calcium 6.9 mg/dL (8.7-10.3); Carbon Dioxide 18.3 mmol/L (21.6-31.8); Chloride 103 mmol/L (96-109); Glucose 152 mg/dL (70-110); Iron 32 UG/DL (65-175); Potassium 5.2 mmol/L (3.5-5.5); Sodium 141 mmol/L (135-145); Total Iron Binding Capacity 281 UG/DL (228-460)
[2024-09-02 08:58] LABS: Basophils % (A) 0 %; Eosinophils % (A) 0 %; HCT 26.7 % (39.0-53.0); HGB 8.8 gm/dL (13.0-17.5); Lymphocytes # (A) 0.3 k/uL (1.0-4.8); Lymphocytes % (A) 3 %; MCH 29.1 pg (25.0-35.0); MCV 88.3 fL (80.0-100.0); Mean Platelet Volume 7.4; Monocytes # (A) 0.3 k/uL (0-1.0); Monocytes % (A) 3 %; Neutrophils # (A) 11.7 k/uL (1.3-7.7); Neutrophils % (A) 94 %; Platelet Count 457 k/uL (150-450); RBC 3.03 m/uL (4.30-5.90); WBC 12.4 k/uL (3.8-10.6)
[2024-09-02] MEDS: ENOXAPARIN 30 MG/0.3 ML SYRINGE SQ SCH (10:35)
[2024-09-02] MEDS: carvediloL 3.125 MG TAB PO SCH (12:16)
[2024-09-02] MEDS: ACETAMINOPHEN TAB 500 MG TAB PO PRN (12:16)
--- NOTE | 2024-09-02 12:27 | P.HPIM ---
History of Present Illness H&P Date: 09/01/24 This is a 39-year-old gentleman with past medical history significant for umbilical hernia, morbid obesity, chronic kidney disease, depression, former nicotine dependence and multiple other medical issues presented to the ER with umbilical hernia site tenderness accompanied by nausea, nause. Denies emesis. Denies fevers or chills. Last bowel movement yesterday ,prior to admission and passing flatus. reports unable to reduce at home and proceeded to the ER. Admission, afebrile, WBC 14.1, hemoglobin 7.8, platelets 445, INR 0.9, bicarb 15, BUN 118, creatinine 8.67, GFR 7. Nephrology and general surgery consulted. Review of Systems ROS Statement: Those systems with pertinent positive or pertinent negative responses have been documented in the HPI. ROS Other: All systems not noted in ROS Statement are negative. Past Medical History Past Medical History: Hypertension, Renal Disease Additional Past Medical History / Comment(s): umbilical hernia History of Any Multi-Drug Resistant Organisms: None Reported Past Surgical History: Hernia Repair Past Psychological History: Depression Smoking Status: Former smoker Past Alcohol Use History: None Reported Past Drug Use History: None Reported Medications and Allergies Home Medications Medication Instructions Recorded Confirmed Type amLODIPine 10 mg PO DAILY #30 tab 11/16/23 08/31/24 Rx Allergy Med Otc(Unknown) 1 tab PO DAILY 08/31/24 08/31/24 History Allergies Allergy/AdvReac Type Severity Reaction Status Date / Time ibuprofen AdvReac See Verified 09/01/24 16:07 comments Physical Exam Vitals: Vital Signs Temp Pulse Resp BP Pulse Ox 09/01/24 07:54 96 18 98 09/01/24 06:10 101 H 18 148/96 99 09/01/24 04:14 105 H 18 157/109 99 08/31/24 23:12 98.0 F 92 20 165/97 98 08/31/24 22:00 97.6 F 95 17 168/100 97 08/31/24 19:00 98.0 F 87 18 179/110 99 08/31/24 17:00 97.8 F 92 15 178/98 98 08/31/24 16:29 98.0 F 102 H 20 180/108 98 08/31/24 14:13 97.5 F L 115 H 20 185/116 99 PHYSICAL EXAM: VITAL SIGNS: [Reviewed] GENERAL: Obese, alert and oriented x 3, sitting up in bed, no acute distress HEENT: Atraumatic, normocephalic ,conjunctivae normal. eyes normal. No scleral icterus. NECK: Supple, no JVD. No thyroid enlargement. No LNs CARDIOVASCULAR: S1, S2 regular. No murmur RESPIRATION: Unlabored, equal air entry, clear to auscultation. ABDOMEN: Soft, nondistended, periumbilical tenderness ,no guarding.Bowel sounds heard. LEGS: No edema. no swelling NERVOUS SYSTEM: Cranial N 2-12 grossly normal. No focal deficits. Strength and sensation grossly intact.. Skin: Warm and dry, no rash Results CBC & Chem 7: 09/02/24 04:21 09/02/24 04:21 Labs: Abnormal Lab Results - Last 24 Hours (Table) 08/31/24 08/31/24 Range/Units 15:00 15:00 WBC 14.1 H (3.8-10.6) k/uL RBC 2.77 L (4.30-5.90) m/uL Hgb 7.8 L (13.0-17.5) gm/dL Hct 24.4 L (39.0-53.0) % Neutrophils # 12.2 H (1.3-7.7) k/uL Lymphocytes # 0.9 L (1.0-4.8) k/uL Chloride 109 H (98-107) mmol/L Carbon Dioxide 15 L (22-30) mmol/L BUN 118 H* (9-20) mg/dL Creatinine 8.67 H* (0.66-1.25) mg/dL Calcium 7.1 L (8.4-10.2) mg/dL AST 16 L (17-59) U/L Assessment and Plan Assessment: Umbilical hernia, CT reporting umbilical hernia containing loop of small bowel with nondistended bowel extending away from this loop suggest at least partial bowel obstruction.status post open repair of incarcerated umbilical hernia, partial omentectomy. Postoperative acute hypoxic respiratory failure secondary to the above Acute on chronic renal failure, baseline GFR 22, currently 7, stage IV/V secondary to polycystic kidney disease. CT reporting enlarged polycystic kidneys with medial right renal cyst may have a hemorrhagic component. Other hyperdense cyst present bilaterally. Metabolic acidosis, secondary to the above Anemia secondary to the above, status post fusion of 1 unit of RBC Remote appearing right-sided rib fractures including ribs 11, 8 and 7, reported per CT Small hiatal hernia Morbid obesity, BMI 35 Hypertension Former nicotine dependence Plan: Continue on current medication resume ,monitoring and symptomatic treatment. IV fluid hydration. Status post a dose of unasyn. NPO. nephrology and general surgery consults in place. Bicarb drip, possibly hemodialysis. Receiving 1 unit packed RBCs. aggressive pulmonary toileting with incentive spirometer ordered. PPI for GI prophylaxis. The impression and plan of care has been dictated as directed. : I performed a history and examination of this patient, discussed the same with the dictator. I agree with the dictator's note ,documented as a scribe. Any additional findings or plans will be noted.
--- NOTE | 2024-09-02 12:33 | P.PN ---
Subjective Progress Note Date: 09/02/24 H&P Date: 09/01/24 This is a 39-year-old gentleman with past medical history significant for umbilical hernia, morbid obesity, chronic kidney disease, depression, former nicotine dependence and multiple other medical issues presented to the ER with umbilical hernia site tenderness accompanied by nausea, nause. Denies emesis. Denies fevers or chills. Last bowel movement yesterday ,prior to admission and passing flatus. reports unable to reduce at home and proceeded to the ER. Admission, afebrile, WBC 14.1, hemoglobin 7.8, platelets 445, INR 0.9, bicarb 15, BUN 118, creatinine 8.67, GFR 7. Nephrology and general surgery consulted. 09/02/2024 status post open repair of incarcerated umbilical hernia, partial omentectomy. Tolerated procedure well. Pain controlled. Bicarb drip, improving- bicarb 18.3. BUN 105, creatinine 8.5. Status post 1 unit packed RBCs, hemoglobin 8.8. Continues on Unasyn. afebrile, WBC 12.4. Hypertensive, mild tachycardia. Required 2 L nasal cannula O2 to maintain O2 sats in the mid 90s. Tolerating regular diet with no nausea vomiting or diarrhea. Passing flatus. Complains of headache this morning. Objective - Vital Signs Vital signs: Vital Signs Temp 97.8 F 09/02/24 07:36 Pulse 103 H 09/02/24 07:36 Resp 19 09/02/24 07:36 BP 175/113 09/02/24 07:36 Pulse Ox 96 09/02/24 07:36 FiO2 Intake & Output 09/01/24 09/02/24 09/02/24 18:59 06:59 18:59 Intake Total 860 200 Output Total 5 700 Balance 855 -700 200 Weight 102.058 kg Intake: IV 550 Oral 200 Blood Product 310 Rc As-1 Unit 310 [id number] Output: Urine 700 Estimated Blood Loss 5 Other: Voiding Method Urinal # Voids 3 - Exam VITAL SIGNS: [Reviewed] GENERAL: alert and oriented x 3, sitting up in bed, no acute distress HEENT: Atraumatic, normocephalic ,conjunctivae normal. eyes normal. No scleral icterus. NECK: Supple, no JVD. CARDIOVASCULAR: S1, S2 regular. No murmur RESPIRATION: Unlabored, equal air entry, clear to auscultation. ABDOMEN: Soft, nondistended, status post surgery , dressing clean dry and intact .no guarding. LEGS: No edema. no swelling NERVOUS SYSTEM: Cranial N 2-12 grossly normal. No focal deficits. Strength a nd sensation grossly intact. Skin: Warm and dry, no rash - Labs CBC & Chem 7: 09/02/24 04:21 09/02/24 04:21 Labs: Abnormal Lab Results - Last 24 Hours (Table) 09/01/24 09/01/24 09/01/24 Range/Units 11:07 11:07 11:07 WBC (3.8-10.6) k/uL RBC 2.62 L (4.30-5.90) m/uL Hgb 7.4 L (13.0-17.5) gm/dL Hct 23.2 L (39.0-53.0) % Plt Count (150-450) k/uL Neutrophils # 8.6 H (1.3-7.7) k/uL Lymphocytes # 0.9 L (1.0-4.8) k/uL Chloride 109 H (98-107) mmol/L Carbon Dioxide 15 L (22-30) mmol/L Anion Gap (4.00-12.00) mmol/L BUN 111 H* (9-20) mg/dL Creatinine 8.94 H* (0.66-1.25) mg/dL Est GFR (CKD-EPI) (>=60) Glucose (70-110) mg/dL Calcium 7.2 L (8.4-10.2) mg/dL Iron (65-175) UG/DL % Saturation (15.00-50.00) Transferrin (204.0-354.0) mg/dL Urine Protein (Negative) Urine Glucose (UA) (Negative) Urine Blood (Negative) Urine Bacteria (None) /hpf Crossmatch See Detail 09/02/24 09/02/24 09/02/24 Range/Units 03:00 04:21 04:21 WBC 12.4 H (3.8-10.6) k/uL RBC 3.03 L (4.30-5.90) m/uL Hgb 8.8 L (13.0-17.5) gm/dL Hct 26.7 L (39.0-53.0) % Plt Count 457 H (150-450) k/uL Neutrophils # 11.7 H (1.3-7.7) k/uL Lymphocytes # 0.3 L (1.0-4.8) k/uL Chloride (98-107) mmol/L Carbon Dioxide 18.3 L (22-30) mmol/L Anion Gap 19.70 H (4.00-12.00) mmol/L BUN 105.0 H (9-20) mg/dL Creatinine 8.5 H (0.66-1.25) mg/dL Est GFR (CKD-EPI) 8 L (>=60) Glucose 152 H (70-110) mg/dL Calcium 6.9 L (8.4-10.2) mg/dL Iron 32 L (65-175) UG/DL % Saturation 11.39 L (15.00-50.00) Transferrin 201.0 L (204.0-354.0) mg/dL Urine Protein 2+ H (Negative) Urine Glucose (UA) 1+ H (Negative) Urine Blood Small H (Negative) Urine Bacteria Rare H (None) /hpf Crossmatch Assessment and Plan Assessment: Umbilical hernia, CT reporting umbilical hernia containing loop of small bowel with nondistended bowel extending away from this loop suggest at least partial bowel obstruction.status post open repair of incarcerated umbilical hernia, partial omentectomy. Postoperative acute hypoxic respiratory failure secondary to the above Acute on chronic renal failure, baseline GFR 22, currently 7, stage IV/V secondary to polycystic kidney disease. CT reporting enlarged polycystic kidneys with medial right renal cyst may have a hemorrhagic component. Other hyperdense cyst present bilaterally. Metabolic acidosis, secondary to the above Anemia secondary to the above, status post fusion of 1 unit of RBC Remote appearing right-sided rib fractures including ribs 11, 8 and 7, reported per CT Small hiatal hernia Morbid obesity, BMI 35 Hypertension Former nicotine dependence Plan: Continue on current medication resume ,monitoring and symptomatic treatment. Pain management. IV fluid hydration,unasyn. Bicarb drip as per nephrology. Maintain aggressive pulmonary toileting with incentive spirometer ordered. Coreg ordered for hypertension. Tylenol ordered as needed -headache. The impression and plan of care has been dictated as directed. : I performed a history and examination of this patient, discussed the same with the dictator. I agree with the dictator's note ,documented as a scribe. Any additional findings or plans will be noted.
--- NOTE | 2024-09-02 13:16 | P.PN ---
Subjective Progress Note Date: 09/02/24 Patient is seen for follow-up of DANIELLA. Patient with no complaints and continues to make urine without issue. He is eating and drinking well. Today's serum creatinine decreased to 8.5. He is postop day 1 from open repair of incarcerated umbilical hernia with partial omentectomy. Objective - Vital Signs Vital signs: Vital Signs Temp 97.8 F 09/02/24 07:36 Pulse 103 H 09/02/24 07:36 Resp 19 09/02/24 07:36 BP 175/113 09/02/24 07:36 Pulse Ox 96 09/02/24 07:36 FiO2 Intake & Output 09/01/24 09/02/24 09/02/24 18:59 06:59 18:59 Intake Total 860 200 Output Total 5 700 350 Balance 855 -700 -150 Weight 102.058 kg Intake: IV 550 Oral 200 Blood Product 310 Rc As-1 Unit 310 [id number] Output: Urine 700 350 Estimated Blood Loss 5 Other: Voiding Method Urinal # Voids 3 - Exam Patient is awake, comfortable, no acute distress. Obese. Examination of the heart S1 and S2 Examination of the lungs bilateral breath sounds are heard, no basal crackles Abdomen is soft, distended, nontender Examination of lower extremities shows no edema MANAGER FORENSIC exam is grossly intact. - Labs CBC & Chem 7: 09/03/24 04:28 09/04/24 05:35 Labs: Abnormal Lab Results - Last 24 Hours (Table) 09/01/24 09/01/24 09/01/24 Range/Units 11:07 11:07 11:07 WBC (3.8-10.6) k/uL RBC 2.62 L (4.30-5.90) m/uL Hgb 7.4 L (13.0-17.5) gm/dL Hct 23.2 L (39.0-53.0) % Plt Count (150-450) k/uL Neutrophils # 8.6 H (1.3-7.7) k/uL Lymphocytes # 0.9 L (1.0-4.8) k/uL Chloride 109 H (98-107) mmol/L Carbon Dioxide 15 L (22-30) mmol/L Anion Gap (4.00-12.00) mmol/L BUN 111 H* (9-20) mg/dL Creatinine 8.94 H* (0.66-1.25) mg/dL Est GFR (CKD-EPI) (>=60) Glucose (70-110) mg/dL Calcium 7.2 L (8.4-10.2) mg/dL Iron (65-175) UG/DL % Saturation (15.00-50.00) Transferrin (204.0-354.0) mg/dL Urine Protein (Negative) Urine Glucose (UA) (Negative) Urine Blood (Negative) Urine Bacteria (None) /hpf Crossmatch See Detail 09/02/24 09/02/24 09/02/24 Range/Units 03:00 04:21 04:21 WBC 12.4 H (3.8-10.6) k/uL RBC 3.03 L (4.30-5.90) m/uL Hgb 8.8 L (13.0-17.5) gm/dL Hct 26.7 L (39.0-53.0) % Plt Count 457 H (150-450) k/uL Neutrophils # 11.7 H (1.3-7.7) k/uL Lymphocytes # 0.3 L (1.0-4.8) k/uL Chloride (98-107) mmol/L Carbon Dioxide 18.3 L (22-30) mmol/L Anion Gap 19.70 H (4.00-12.00) mmol/L BUN 105.0 H (9-20) mg/dL Creatinine 8.5 H (0.66-1.25) mg/dL Est GFR (CKD-EPI) 8 L (>=60) Glucose 152 H (70-110) mg/dL Calcium 6.9 L (8.4-10.2) mg/dL Iron 32 L (65-175) UG/DL % Saturation 11.39 L (15.00-50.00) Transferrin 201.0 L (204.0-354.0) mg/dL Urine Protein 2+ H (Negative) Urine Glucose (UA) 1+ H (Negative) Urine Blood Small H (Negative) Urine Bacteria Rare H (None) /hpf Crossmatch Assessment and Plan Assessment: 1. DANIELLA versus possible progression of CKD, secondary to ATN from polycystic kidney disease diagnosed since at least 2016, nonoliguric. UA in 2022 with proteinuria. This visit UA significant for protein 2+. Initial creatinine 8.67, creatinine today 8.5, baseline creatinine unclear but appears to be around 8 2. Stage IV or stage V CKD, from polycystic kidney disease, baseline unclear, Previous serum creatinine 8.7 on last admission 10 days ago and 3.4 previous to that in June 2023. BUN 118 on admission, today is 105. No signs of uremic encephalopathy. 3. Anion gap metabolic acidosis, likely from CKD, improving 4. Anemia, hemoglobin 7.8 on admission, 1 unit pRBC given, total iron low at 32, transferrin low 201, saturation low 11.3%, maintain on Aranesp 5. Hypertension, on home amlodipine 6. Incarcerated umbilical hernia, status post repair, omentectomy Plan: Discussed plans for renal replacement therapy at length, no plans for dialysis at this time, patient with no uremic symptoms Continue IV D5W with bicarbonate at 70 cc/h Begin sodium bicarbonate tablets 650 p.o. twice daily Continue Aranesp 40 mcg subcu q7d Added Coreg 6.25 p.o. twice daily He is postop day 1 of surgical umbilical hernia repair Will continue to follow this patient during his hospital stay. Agree with resident's findings, A and P
--- NOTE | 2024-09-02 13:31 | P.PN ---
Subjective Progress Note Date: 09/02/24 SURGICAL PROGRESS NOTE CHIEF COMPLAINT: Umbilical hernia HISTORY OF PRESENT ILLNESS: Patient is postop day #1 status post open repair of incarcerated umbilical hernia and partial omentectomy. Pain is controlled. He is tolerating diet. He sitting up in bed comfortably. Nephrology is following his kidneys. He is currently on a bicarb drip. They also added Aranesp for the anemia. Patient did receive a unit of blood yesterday hemoglobin has improved from 7.4-8.8. WBC is 12 creatinine 8.5. PHYSICAL EXAM: VITAL SIGNS: Reviewed. GENERAL: Well-developed in no acute distress. ABDOMEN: Soft. Nondistended. NEUROLOGIC: Alert and oriented. Cranial nerves II through XII grossly intact. ASSESSMENT: 1. Incarcerated umbilical hernia 2. Anemia prior to surgery 3. Acute kidney injury on top of chronic kidney disease and history of polycystic kidney disease PLAN: -Recommend EGD and colonoscopy outpatient for further anemia workup -Nephrology recommendations appreciated and noted -Continue regular diet -Continue pain management. [place] added for oral pain medication -encourage patient to increase activity Physician Highway Painter note has been reviewed by physician. Signing provider agrees with the documented findings, assessment, and plan of care. Objective - Vital Signs Vital signs: Vital Signs Temp 98.1 F 09/02/24 11:40 Pulse 111 H 09/02/24 11:40 Resp 18 09/02/24 11:40 BP 165/107 09/02/24 11:40 Pulse Ox 95 09/02/24 11:40 FiO2 Intake & Output 09/01/24 09/02/24 09/02/24 18:59 06:59 18:59 Intake Total 860 200 Output Total 5 700 350 Balance 855 -700 -150 Weight 102.058 kg Intake: IV 550 Oral 200 Blood Product 310 Rc As-1 Unit 310 [id number] Output: Urine 700 350 Estimated Blood Loss 5 Other: Voiding Method Urinal Urinal # Voids 3 - Labs CBC & Chem 7: 09/02/24 04:21 09/02/24 04:21 Labs: Abnormal Lab Results - Last 24 Hours (Table) 09/01/24 09/02/24 09/02/24 Range/Units 11:07 03:00 04:21 WBC (3.8-10.6) k/uL RBC (4.30-5.90) m/uL Hgb (13.0-17.5) gm/dL Hct (39.0-53.0) % Plt Count (150-450) k/uL Neutrophils # (1.3-7.7) k/uL Lymphocytes # (1.0-4.8) k/uL Carbon Dioxide 18.3 L (21.6-31.8) mmol/L Anion Gap 19.70 H (4.00-12.00) mmol/L BUN 105.0 H (9.0-27.0) mg/dL Creatinine 8.5 H (0.6-1.5) mg/dL Est GFR (CKD-EPI) 8 L (>=60) Glucose 152 H (70-110) mg/dL Calcium 6.9 L (8.7-10.3) mg/dL Iron 32 L (65-175) UG/DL % Saturation 11.39 L (15.00-50.00) Transferrin 201.0 L (204.0-354.0) mg/dL Urine Protein 2+ H (Negative) Urine Glucose (UA) 1+ H (Negative) Urine Blood Small H (Negative) Urine Bacteria Rare H (None) /hpf Crossmatch See Detail 09/02/24 Range/Units 04:21 WBC 12.4 H (3.8-10.6) k/uL RBC 3.03 L (4.30-5.90) m/uL Hgb 8.8 L (13.0-17.5) gm/dL Hct 26.7 L (39.0-53.0) % Plt Count 457 H (150-450) k/uL Neutrophils # 11.7 H (1.3-7.7) k/uL Lymphocytes # 0.3 L (1.0-4.8) k/uL Carbon Dioxide (21.6-31.8) mmol/L Anion Gap (4.00-12.00) mmol/L BUN (9.0-27.0) mg/dL Creatinine (0.6-1.5) mg/dL Est GFR (CKD-EPI) (>=60) Glucose (70-110) mg/dL Calcium (8.7-10.3) mg/dL Iron (65-175) UG/DL % Saturation (15.00-50.00) Transferrin (204.0-354.0) mg/dL Urine Protein (Negative) Urine Glucose (UA) (Negative) Urine Blood (Negative) Urine Bacteria (None) /hpf Crossmatch
[2024-09-02] MEDS: SODIUM BICARBONATE TAB 650 MG TAB PO SCH (14:01)
[2024-09-02] MEDS: carvediloL 6.25 MG TAB PO SCH (17:41)
[2024-09-02] MEDS: HYDROcodone/APAP 5-325MG 1 EACH TAB PO PRN (17:43)
[2024-09-03 08:44] LABS: Basophils # (A) 0.05 X 10*3/uL (0.00-0.10); Basophils % (A) 0.4 %; Eosinophils # (A) 0.29 X 10*3/uL (0.04-0.35); Eosinophils % (A) 2.4 %; HCT 25.7 % (39.6-50.0); HGB 8.3 g/dL (13.0-17.0); Lymphocytes # (A) 1.08 X 10*3/uL (0.90-5.00); Lymphocytes % (A) 8.8 %; MCH 28.2 pg (27.0-32.0); MCHC 32.3 g/dL (32.0-37.0); MCV 87.4 FL (80.0-97.0); Mean Platelet Volume 9.5 FL (9.5-12.2); Monocytes % (A) 8.1 %; NRBC Per 100 WBC 0 X 10*3/uL (0.00-0.01); Neutrophils # (A) 9.86 X 10*3/uL (1.80-7.70); Neutrophils % (A) 79.8 %; Platelet Count 390 X 10*3/uL (140-440); RBC 2.94 X 10*6/uL (4.40-5.60); RDW 14.5 % (11.5-14.5); WBC 12.34 X 10*3/uL (4.50-10.00)
[2024-09-03 09:31] LABS: BUN/Creat Ratio 11.74 Ratio (12.00-20.00); Calcium 6.2 mg/dL (8.7-10.3); Carbon Dioxide 24.2 mmol/L (21.6-31.8); Chloride 101 mmol/L (96-109); Glucose 103 mg/dL (70-110); Potassium 4.4 mmol/L (3.5-5.5); Sodium 144 mmol/L (135-145)
--- NOTE | 2024-09-03 10:00 | P.PN ---
Subjective Progress Note Date: 09/03/24 Patient is seen for follow-up of DANIELLA. Patient with no complaints and continues to make urine without issue. He is eating and drinking well. Today's serum creatinine stable at 8.6. He is postop day 2 from open repair of incarcerated umbilical hernia with partial omentectomy. Objective - Vital Signs Vital signs: Vital Signs Temp 97.9 F 09/03/24 07:33 Pulse 102 H 09/03/24 07:33 Resp 20 09/03/24 07:33 BP 174/110 09/03/24 07:33 Pulse Ox 96 09/03/24 07:33 FiO2 Intake & Output 09/02/24 09/03/24 09/03/24 18:59 06:59 18:59 Intake Total 200 Output Total 950 1800 Balance -750 -1800 Intake: Oral 200 Output: Urine 950 1800 Other: Voiding Method Toilet Toilet Urinal Urinal - Exam Patient is awake, comfortable, no acute distress. Obese. Examination of the heart S1 and S2 Examination of the lungs bilateral breath sounds are heard, no basal crackles Abdomen is soft, distended, nontender Examination of lower extremities shows no edema WEIGHT CHECKER exam is grossly intact. - Labs CBC & Chem 7: 09/03/24 04:28 09/03/24 04:28 Labs: Abnormal Lab Results - Last 24 Hours (Table) 09/02/24 09/02/24 Range/Units 04:21 04:21 WBC 12.4 H (3.8-10.6) k/uL RBC 3.03 L (4.30-5.90) m/uL Hgb 8.8 L (13.0-17.5) gm/dL Hct 26.7 L (39.0-53.0) % Plt Count 457 H (150-450) k/uL Neutrophils # 11.7 H (1.3-7.7) k/uL Lymphocytes # 0.3 L (1.0-4.8) k/uL Carbon Dioxide 18.3 L (21.6-31.8) mmol/L Anion Gap 19.70 H (4.00-12.00) mmol/L BUN 105.0 H (9.0-27.0) mg/dL Creatinine 8.5 H (0.6-1.5) mg/dL Est GFR (CKD-EPI) 8 L (>=60) Glucose 152 H (70-110) mg/dL Calcium 6.9 L (8.7-10.3) mg/dL Iron 32 L (65-175) UG/DL % Saturation 11.39 L (15.00-50.00) Transferrin 201.0 L (204.0-354.0) mg/dL Assessment and Plan Assessment: 1. DANIELLA versus possible progression of CKD, secondary to ATN from polycystic kidney disease diagnosed since at least 2016, nonoliguric. UA in 2022 with proteinuria. This visit UA significant for protein 2+. Initial creatinine 8.67, creatinine today 8.6, baseline creatinine unclear. 2. Stage IV or stage V CKD, from polycystic kidney disease, baseline unclear, Previous serum creatinine 8.7 on last admission 10 days ago and 3.4 previous to that in June 2023. BUN 118 on admission, today is 101. No signs of uremic encephalopathy. 3. Anion gap metabolic acidosis, likely from CKD, improving 4. Anemia, hemoglobin 7.8 on admission, 1 unit pRBC given, total iron low at 32, transferrin low 201, saturation low 11.3%, maintain on Aranesp 5. Hypertension, on home amlodipine 6. Hypocalcemia, rule out nutritional vitamin D deficiency. Most likely underlying secondary hyperparathyroidism. 7. Incarcerated umbilical hernia, status post repair, omentectomy Plan: Discussed plans for renal replacement therapy at length, no plans for dialysis at this time, patient with no uremic symptoms Discontinue IV D5W with bicarbonate Begin sodium bicarbonate tablets 650 p.o. twice daily Given calcium gluconate 2g, monitor calcium Check 25-hydroxy vitamin D level Check PTH Add IV iron Continue Aranesp 40 mcg subcu q7d Added Coreg 6.25 p.o. twice daily He is postop day 2 of surgical umbilical hernia repair Patient is stable and cleared from nephrology standpoint, will need outpatient nephrology follow-up. Patient is seen and examined. Agree with resident's findings, assessment and plan
[2024-09-03] MEDS ORDERED: CALCIUM GLUCONATE IN NACL 2 GM in SALINE 1 100ML.BAG IVPB ONE (10:03)
[2024-09-03] MEDS: CALCIUM GLUCONATE IN NACL 2 GM in SALINE 1 100ML.BAG IVPB ONE (10:35)
--- NOTE | 2024-09-03 10:55 | P.PN ---
Subjective Progress Note Date: 09/03/24 H&P Date: 09/01/24 This is a 39-year-old gentleman with past medical history significant for umbilical hernia, morbid obesity, chronic kidney disease, depression, former nicotine dependence and multiple other medical issues presented to the ER with umbilical hernia site tenderness accompanied by nausea, nause. Denies emesis. Denies fevers or chills. Last bowel movement yesterday ,prior to admission and passing flatus. reports unable to reduce at home and proceeded to the ER. Admission, afebrile, WBC 14.1, hemoglobin 7.8, platelets 445, INR 0.9, bicarb 15, BUN 118, creatinine 8.67, GFR 7. Nephrology and general surgery consulted. 09/02/2024 status post open repair of incarcerated umbilical hernia, partial omentectomy. Tolerated procedure well. Pain controlled. Bicarb drip, improving- bicarb 18.3. BUN 105, creatinine 8.5. Status post 1 unit packed RBCs, hemoglobin 8.8. Continues on Unasyn. afebrile, WBC 12.4. Hypertensive, mild tachycardia. Required 2 L nasal cannula O2 to maintain O2 sats in the mid 90s. Tolerating regular diet with no nausea vomiting or diarrhea. Passing flatus. Complains of headache this morning. 09/03/2024 good diet intake, denies nausea vomiting or diarrhea. Positive bowel movement. Hypertensive/tachycardic yesterday, Coreg initiated, improving. More ambulatory today. Pain controlled. Afebrile, WBC 12.34. Hemoglobin stable 8.3, platelets 390. Maintained on bicarb drip, bicarb 24.2. BUN 101, creatinine 8.6. Calcium 6.2, calcium gluconate ordered. Objective - Vital Signs Vital signs: Vital Signs Temp 97.9 F 09/03/24 07:33 Pulse 94 09/03/24 09:47 Resp 20 09/03/24 07:33 BP 150/101 09/03/24 09:47 Pulse Ox 96 09/03/24 07:33 FiO2 Intake & Output 09/02/24 09/03/24 09/03/24 18:59 06:59 18:59 Intake Total 200 Output Total 950 1800 Balance -750 -1800 Intake: Oral 200 Output: Urine 950 1800 Other: Voiding Method Toilet Toilet Urinal Urinal # Voids 1 # Bowel Movements 1 - Exam VITAL SIGNS: [Reviewed] GENERAL: alert and oriented x 3, sitting up in chair, no acute distress. HEENT: Atraumatic, normocephalic ,conjunctivae normal. No scleral icterus.MMM. NECK: Supple, no JVD. CARDIOVASCULAR: S1, S2 regular. No murmur RESPIRATION: Unlabored, equal air entry, clear to auscultation. ABDOMEN: Soft, nondistended, status post surgery , dressing clean dry and intact .no guarding. LEGS: No edema. no swelling NERVOUS SYSTEM: Cranial N 2-12 grossly normal. No focal deficits. Strength and sensation grossly intact. Skin: Warm and dry, no rash - Labs CBC & Chem 7: 09/03/24 04:28 09/03/24 04:28 Labs: Abnormal Lab Results - Last 24 Hours (Table) 09/03/24 09/03/24 Range/Units 04:28 04:28 WBC 12.34 H (4.50-10.00) X 10*3/uL RBC 2.94 L (4.40-5.60) X 10*6/uL Hgb 8.3 L (13.0-17.0) g/dL Hct 25.7 L (39.6-50.0) % Immature Gran # 0.06 H (0.00-0.04) X 10*3/uL Neutrophils # 9.86 H (1.80-7.70) X 10*3/uL Anion Gap 18.80 H (4.00-12.00) mmol/L BUN 101.0 H (9.0-27.0) mg/dL Creatinine 8.6 H (0.6-1.5) mg/dL Est GFR (CKD-EPI) 8 L (>=60) BUN/Creatinine Ratio 11.74 L (12.00-20.00) Ratio Calcium 6.2 A* (8.7-10.3) mg/dL Assessment and Plan Assessment: Umbilical hernia, CT reporting umbilical hernia containing loop of small bowel with nondistended bowel extending away from this loop suggest at least partial bowel obstruction.status post open repair of incarcerated umbilical hernia, partial omentectomy. Postoperative acute hypoxic respiratory failure secondary to the above Acute on chronic renal failure, baseline GFR 22, currently 7, stage IV/V secondary to polycystic kidney disease. CT reporting enlarged polycystic kidneys with medial right renal cyst may have a hemorrhagic component. Other hyperdense cyst present bilaterally. Metabolic acidosis, secondary to the above Anemia secondary to the above, status post fusion of 1 unit of RBC Remote appearing right-sided rib fractures including ribs 11, 8 and 7, reported per CT Small hiatal hernia Morbid obesity, BMI 35 Hypertension Former nicotine dependence Hypocalcemia Plan: Continue on current medication resume ,monitoring and symptomatic treatment. Calcium gluconate. continue Norvasc and Coreg with close monitoring of blood pressure.pain management. IV fluid hydration,unasyn. Bicarb drip transitioned to oral. Aggressive pulmonary toileting with incentive spirometer ordered. Discharge planning in progress pending general surgery and nephrology's final DC recommendations and clearance. The impression and plan of care has been dictated as directed. : I performed a history and examination of this patient, discussed the same with the dictator. I agree with the dictator's note ,documented as a scribe. Any additional findings or plans will be noted.
--- NOTE | 2024-09-03 13:19 | P.PN ---
Subjective Progress Note Date: 09/03/24 SURGICAL PROGRESS NOTE CHIEF COMPLAINT: Umbilical hernia HISTORY OF PRESENT ILLNESS: Patient is postop day #2 status post open repair of incarcerated umbilical hernia and partial omentectomy. Pain is controlled. He is tolerating diet. He did have a bowel movement. Denies any nausea or vomiting. Afebrile. WBC 12.3 Hgb 8.3 platelets of 300 creatinine 8.6 PHYSICAL EXAM: VITAL SIGNS: Reviewed. GENERAL: Well-developed in no acute distress. ABDOMEN: Soft. Nondistended. NEUROLOGIC: Alert and oriented. Cranial nerves II through XII grossly intact. ASSESSMENT: 1. Incarcerated umbilical hernia 2. Anemia prior to surgery 3. Acute kidney injury on top of chronic kidney disease and history of polycystic kidney disease PLAN: -Recommend EGD and colonoscopy outpatient for further anemia workup -Nephrology recommendations appreciated and noted -Continue regular diet -Continue pain management -encourage patient to increase activity -Patient can be discharged to surgical standpoint when medically cleared Physician Edge Dyer note has been reviewed by physician. Signing provider agrees with the documented findings, assessment, and plan of care. Objective - Vital Signs Vital signs: Vital Signs Temp 97.8 F 09/03/24 13:05 Pulse 96 09/03/24 13:05 Resp 18 09/03/24 13:05 BP 150/105 09/03/24 13:05 Pulse Ox 94 L 09/03/24 13:05 FiO2 Intake & Output 09/02/24 09/03/24 09/03/24 18:59 06:59 18:59 Intake Total 200 Output Total 950 1800 Balance -750 -1800 Intake: Oral 200 Output: Urine 950 1800 Other: Voiding Method Toilet Toilet Toilet Urinal Urinal # Voids 1 # Bowel Movements 1 - Labs CBC & Chem 7: 09/03/24 04:28 09/03/24 04:28 Labs: Abnormal Lab Results - Last 24 Hours (Table) 09/03/24 09/03/24 Range/Units 04:28 04:28 WBC 12.34 H (4.50-10.00) X 10*3/uL RBC 2.94 L (4.40-5.60) X 10*6/uL Hgb 8.3 L (13.0-17.0) g/dL Hct 25.7 L (39.6-50.0) % Immature Gran # 0.06 H (0.00-0.04) X 10*3/uL Neutrophils # 9.86 H (1.80-7.70) X 10*3/uL Anion Gap 18.80 H (4.00-12.00) mmol/L BUN 101.0 H (9.0-27.0) mg/dL Creatinine 8.6 H (0.6-1.5) mg/dL Est GFR (CKD-EPI) 8 L (>=60) BUN/Creatinine Ratio 11.74 L (12.00-20.00) Ratio Calcium 6.2 A* (8.7-10.3) mg/dL
[2024-09-03] MEDS: LORATADINE 10 MG TAB PO SCH (14:04)
[2024-09-03] MEDS: SODIUM FERRIC GLUCONAT-SUCROSE 125 MG in SODIUM CHLORIDE 0.9% 100 ML IVPB SCH (21:03)
[2024-09-04 09:43] LABS: ALT 14 U/L (10-49); AST 15 U/L (14-35); Albumin 3.5 g/dL (3.8-4.9); Alkaline Phosphatase 71 U/L (41-126); Blood Urea Nitrogen 96.6 mg/dL (9.0-27.0); Calcium 6.4 mg/dL (8.7-10.3); Carbon Dioxide 23.6 mmol/L (21.6-31.8); Chloride 100 mmol/L (96-109); Globulin 2.7 g/dL (1.6-3.3); Glucose 89 mg/dL (70-110); Potassium 4.5 mmol/L (3.5-5.5); Sodium 145 mmol/L (135-145); Total Bilirubin <0.2 mg/dL (0.3-1.2); Total Protein 6.2 g/dL (6.2-8.2)
--- NOTE | 2024-09-04 10:21 | P.PN ---
Subjective Progress Note Date: 09/04/24 Patient is seen for follow-up of DANIELLA. Patient with no complaints and continues to make urine without issue. He is eating and drinking well. Having regular bowel movements. Today's serum creatinine stable at 8.7. He is postop day 3 from open repair of incarcerated umbilical hernia with partial omentectomy. Pt is seen and examined. Agree with resident's assessment and plan. Objective - Vital Signs Vital signs: Vital Signs Temp 98.2 F 09/04/24 08:00 Pulse 97 09/04/24 08:00 Resp 16 09/04/24 08:00 BP 207/130 09/04/24 08:00 Pulse Ox 94 L 09/04/24 08:00 FiO2 Intake & Output 09/03/24 09/04/24 09/04/24 18:59 06:59 18:59 Intake Total 540 Output Total 200 Balance 340 Intake: Oral 540 Output: Emesis 200 Other: Voiding Method Toilet Toilet Urinal # Voids 1 3 # Bowel Movements 1 - Exam Patient is awake, comfortable, no acute distress. Obese. Examination of the heart S1 and S2 Examination of the lungs bilateral breath sounds are heard, no basal crackles Abdomen is soft, distended, nontender Examination of lower extremities shows no edema LOSS CONTROL TECHNICIAN exam is grossly intact. - Labs CBC & Chem 7: 09/05/24 04:53 09/05/24 04:53 Labs: Abnormal Lab Results - Last 24 Hours (Table) 09/03/24 Range/Units 04:28 Anion Gap 18.80 H (4.00-12.00) mmol/L BUN 101.0 H (9.0-27.0) mg/dL Creatinine 8.6 H (0.6-1.5) mg/dL Est GFR (CKD-EPI) 8 L (>=60) BUN/Creatinine Ratio 11.74 L (12.00-20.00) Ratio Calcium 6.2 A* (8.7-10.3) mg/dL Assessment and Plan Assessment: 1. DANIELLA versus possible progression of CKD, secondary to ATN from polycystic kidney disease diagnosed since at least 2016, nonoliguric. UA in 2022 with proteinuria. This visit UA significant for protein 2+. Initial creatinine 8.67, creatinine today 8.7, baseline creatinine unclear. 2. Stage IV or stage V CKD, from polycystic kidney disease, baseline unclear, Previous serum creatinine 8.7 on last admission 10 days ago and 3.4 previous to that in June 2023. BUN 118 on admission, today is 96. No signs of uremic encephalopathy. 3. Anion gap metabolic acidosis likely from CKD, improving with sodium bicarbonate 4. Anemia, hemoglobin 7.8 on admission, 1 unit pRBC given, total iron low at 32, transferrin low 201, saturation low 11.3%, maintain on Aranesp 5. Hypertension, on home amlodipine 6. Hypocalcemia, rule out nutritional vitamin D deficiency. Most likely underlying secondary hyperparathyroidism. Given calcium gluconate. 7. Incarcerated umbilical hernia, status post repair, omentectomy Plan: Discussed plans for renal replacement therapy at length, no plans for dialysis at this time, patient with no uremic symptoms Discontinue IV D5W with bicarbonate Begin sodium bicarbonate tablets 650 p.o. twice daily Given calcium gluconate 2g, monitor calcium Check 25-hydroxy vitamin D level Check PTH Add IV iron Continue Aranesp 40 mcg subcu q7d Added Coreg 6.25 p.o. twice daily He is postop day 3 of surgical umbilical hernia repair Patient is stable and cleared from nephrology standpoint, will need outpatient nephrology follow-up.
--- NOTE | 2024-09-04 12:41 | P.PN ---
Subjective Progress Note Date: 09/04/24 SURGICAL PROGRESS NOTE CHIEF COMPLAINT: Umbilical hernia HISTORY OF PRESENT ILLNESS: Patient is postop day #3 status post open repair of incarcerated umbilical hernia and partial omentectomy. Pain is controlled. He is tolerating diet. He did have a bowel movement. Denies any nausea or vomiting. Afebrile. BP elevated. WBC 12.34 and Hgb 8.3 as of yesterday PHYSICAL EXAM: VITAL SIGNS: Reviewed. GENERAL: Well-developed in no acute distress. ABDOMEN: Soft. Nondistended. Surgical dressing clean dry and intact NEUROLOGIC: Alert and oriented. Cranial nerves II through XII grossly intact. ASSESSMENT: 1. Incarcerated umbilical hernia 2. Anemia prior to surgery 3. Acute kidney injury on top of chronic kidney disease and history of polycystic kidney disease PLAN: -Recommend EGD and colonoscopy outpatient for further anemia workup -Continue regular diet -Continue pain management -encourage patient to increase activity -Continue antibiotic -Change surgical dressing to Optifoam silver -repeat CBC in AM Physician Sorting Machine Attendant note has been reviewed by physician. Signing provider agrees with the documented findings, assessment, and plan of care. Objective - Vital Signs Vital signs: Vital Signs Temp 98.5 F 09/04/24 11:24 Pulse 93 09/04/24 12:32 Resp 16 09/04/24 12:32 BP 158/103 09/04/24 12:32 Pulse Ox 93 L 09/04/24 12:32 FiO2 Intake & Output 09/03/24 09/04/24 09/04/24 18:59 06:59 18:59 Intake Total 540 Output Total 200 Balance 340 Intake: Oral 540 Output: Emesis 200 Other: Voiding Method Toilet Toilet Toilet Urinal Urinal # Voids 1 3 1 # Bowel Movements 1 2 - Labs CBC & Chem 7: 09/03/24 04:28 09/04/24 05:35 Labs: Abnormal Lab Results - Last 24 Hours (Table) 09/04/24 Range/Units 05:35 Anion Gap 21.40 H (4.00-12.00) mmol/L BUN 96.6 H (9.0-27.0) mg/dL Creatinine 8.7 H (0.6-1.5) mg/dL Est GFR (CKD-EPI) 7 L (>=60) BUN/Creatinine Ratio 11.10 L (12.00-20.00) Ratio Calcium 6.4 A* (8.7-10.3) mg/dL Total Bilirubin <0.2 L (0.3-1.2) mg/dL Albumin 3.5 L (3.8-4.9) g/dL Albumin/Globulin Ratio 1.30 L (1.60-3.17) Ratio
--- NOTE | 2024-09-04 13:14 | P.PN ---
Subjective Progress Note Date: 09/04/24 his is a 39-year-old gentleman with past medical history significant for umbilical hernia, morbid obesity, chronic kidney disease, depression, former nicotine dependence and multiple other medical issues presented to the ER with umbilical hernia site tenderness accompanied by nausea, nause. Denies emesis. Denies fevers or chills. Last bowel movement yesterday ,prior to admission and passing flatus. reports unable to reduce at home and proceeded to the ER. Admission, afebrile, WBC 14.1, hemoglobin 7.8, platelets 445, INR 0.9, bicarb 15, BUN 118, creatinine 8.67, GFR 7. Nephrology and general surgery consulted. 09/02/2024 status post open repair of incarcerated umbilical hernia, partial omen tectomy. Tolerated procedure well. Pain controlled. Bicarb drip, improving- bicarb 18.3. BUN 105, creatinine 8.5. Status post 1 unit packed RBCs, hemoglobin 8.8. Continues on Unasyn. afebrile, WBC 12.4. Hypertensive, mild tachycardia. Required 2 L nasal cannula O2 to maintain O2 sats in the mid 90s. Tolerating regular diet with no nausea vomiting or diarrhea. Passing flatus. Complains of headache this morning. 09/03/2024 good diet intake, denies nausea vomiting or diarrhea. Positive bowel movement. Hypertensive/tachycardic yesterday, Coreg initiated, improving. More ambulatory today. Pain controlled. Afebrile, WBC 12.34. Hemoglobin stable 8.3, platelets 390. Maintained on bicarb drip, bicarb 24.2. BUN 101, creatinine 8.6. Calcium 6.2, calcium gluconate ordered. 09/04. Patient seen and examined. Blood work done this morning showed sodium 145, potassium 4.5, BUN 96.6, Creatinine 8.7, calcium 6.4. Blood pressure continues to be elevated REVIEW OF SYSTEMS: CONSTITUTIONAL: No fever, no malaise,. CARDIOVASCULAR: No chest pain, no palpitations, no syncope. PULMONARY: No shortness of breath, no cough, GASTROINTESTINAL: No diarrhea, no nausea, no vomiting, no abdominal pain. NEUROLOGICAL: No headaches, no weakness, PHYSICAL EXAMINATION: GENERAL: The patient is alert and oriented x3, not in any acute distress. Well developed, well nourished. HEENT: Pupils are round and equally reacting to light. EOMI. No scleral icterus. No conjunctival pallor. Normocephalic, atraumatic. No pharyngeal erythema. No thyromegaly. CARDIOVASCULAR: S1 and S2 present. No murmurs, rubs, or gallops. PULMONARY: Chest is clear to auscultation, no wheezing or crackles. ABDOMEN: Surgical incision seen, abdominal binder in place MUSCULOSKELETAL: No joint swelling or deformity. EXTREMITIES: No cyanosis, clubbing, or pedal edema. NEUROLOGICAL: Gross neurological examination did not reveal any focal deficits. SKIN: No rashes. Assessment and plan Umbilical hernia, CT reporting umbilical hernia containing loop of small bowel with nondistended bowel extending away from this loop suggest at least partial bowel obstruction.status post open repair of incarcerated umbilical hernia, partial omentectomy. Postoperative acute hypoxic respiratory failure secondary to the above Acute on chronic renal failure, baseline GFR 22, currently 7, stage IV/V secondary to polycystic kidney disease. CT reporting enlarged polycystic kidneys with medial right renal cyst may have a hemorrhagic component. Other hyperdense cyst present bilaterally. Metabolic acidosis, secondary to the above Anemia secondary to the above, status post fusion of 1 unit of RBC Remote appearing right-sided rib fractures including ribs 11, 8 and 7, reported per CT Small hiatal hernia Morbid obesity, BMI 35 Hypertension Former nicotine dependence Hypocalcemia Monitor vital signs Monitor CBC Monitor CMP Continue telemetry monitoring Strict I's and O's, daily weights Avoid nephrotoxic agents IV fluids in the form of D5W were discontinued Started on sodium bicarb tablets, patient given calcium gluconate Continue Coreg Continue Norvasc Surgery following Nephrology following Labs and medication were reviewed.. Continue same treatment. Continue with symptomatic treatment. Resume home medication. Monitor labs and vitals. DVT and GI prophylaxis. Further recommendations as per clinical course of the patient Dictation was produced using [employer] dictation software. please excuse any gramma tical, word or spelling errors. Objective - Vital Signs Vital signs: Vital Signs Temp 98.5 F 09/04/24 11:24 Pulse 96 09/04/24 11:24 Resp 16 09/04/24 11:24 BP 190/117 09/04/24 11:24 Pulse Ox 97 09/04/24 11:24 FiO2 Intake & Output 09/03/24 09/04/24 09/04/24 18:59 06:59 18:59 Intake Total 540 Output Total 200 Balance 340 Intake: Oral 540 Output: Emesis 200 Other: Voiding Method Toilet Toilet Urinal # Voids 1 3 1 # Bowel Movements 1 2 - Labs CBC & Chem 7: 09/03/24 04:28 09/04/24 05:35 Labs: Abnormal Lab Results - Last 24 Hours (Table) 09/04/24 Range/Units 05:35 Anion Gap 21.40 H (4.00-12.00) mmol/L BUN 96.6 H (9.0-27.0) mg/dL Creatinine 8.7 H (0.6-1.5) mg/dL Est GFR (CKD-EPI) 7 L (>=60) BUN/Creatinine Ratio 11.10 L (12.00-20.00) Ratio Calcium 6.4 A* (8.7-10.3) mg/dL Total Bilirubin <0.2 L (0.3-1.2) mg/dL Albumin 3.5 L (3.8-4.9) g/dL Albumin/Globulin Ratio 1.30 L (1.60-3.17) Ratio
[2024-09-04] MEDS: CALCIUM GLUCONATE IN NACL 2 GM in SALINE 1 100ML.BAG IVPB ONE (13:25)
[2024-09-04] MEDS: diphenhydrAMINE 25 MG CAP PO STA (20:58)
[2024-09-05 10:42] LABS: Basophils # (A) 0.05 X 10*3/uL (0.00-0.10); Basophils % (A) 0.4 %; Eosinophils # (A) 0.25 X 10*3/uL (0.04-0.35); HCT 27.1 % (39.6-50.0); HGB 8.5 g/dL (13.0-17.0); Lymphocytes # (A) 1.03 X 10*3/uL (0.90-5.00); Lymphocytes % (A) 8.2 %; MCH 27.7 pg (27.0-32.0); MCHC 31.4 g/dL (32.0-37.0); MCV 88.3 FL (80.0-97.0); Mean Platelet Volume 9.8 FL (9.5-12.2); Monocytes # (A) 1.05 X 10*3/uL (0.20-1.00); Monocytes % (A) 8.3 %; NRBC Per 100 WBC 0 X 10*3/uL (0.00-0.01); Neutrophils # (A) 10.15 X 10*3/uL (1.80-7.70); Neutrophils % (A) 80.4 %; Platelet Count 341 X 10*3/uL (140-440); RBC 3.07 X 10*6/uL (4.40-5.60); RDW 14.3 % (11.5-14.5); WBC 12.62 X 10*3/uL (4.50-10.00)
[2024-09-05 10:59] LABS: BUN/Creat Ratio 10.44 Ratio (12.00-20.00); Blood Urea Nitrogen 92.9 mg/dL (9.0-27.0); Calcium 6.6 mg/dL (8.7-10.3); Carbon Dioxide 21.9 mmol/L (21.6-31.8); Chloride 103 mmol/L (96-109); Glucose 73 mg/dL (70-110); Potassium 4.7 mmol/L (3.5-5.5); Sodium 143 mmol/L (135-145)
--- NOTE | 2024-09-05 12:14 | P.PN ---
Subjective Patient is seen for follow-up of DANIELLA. Patient with no complaints and continues to make urine without issue. He is eating and drinking well. Serum creatinine 8.9. No significant complaints. Plans for discharge today. Objective - Vital Signs Vital signs: Vital Signs Temp 97.7 F 09/05/24 07:36 Pulse 96 09/05/24 08:00 Resp 17 09/05/24 07:36 BP 165/119 09/05/24 09:45 Pulse Ox 97 09/05/24 07:36 FiO2 Intake & Output 09/04/24 09/05/24 09/05/24 18:59 06:59 18:59 Intake Total 2820 1080 240 Balance 2820 1080 240 Intake: Oral 2820 1080 240 Other: Voiding Method Toilet Toilet Toilet Urinal Urinal # Voids 6 2 1 # Bowel Movements 2 - Exam Patient is awake, comfortable, no acute distress. Obese. Examination of the heart S1 and S2 Examination of the lungs bilateral breath sounds are heard, no basal crackles Abdomen is soft, distended, nontender Examination of lower extremities shows no edema BANKRUPTCY ASSISTANT exam is grossly intact. - Labs CBC & Chem 7: 09/05/24 04:53 09/05/24 04:53 Labs: Abnormal Lab Results - Last 24 Hours (Table) 09/04/24 09/04/24 09/05/24 Range/Units 09:58 09:58 04:53 WBC 12.62 H (4.50-10.00) X 10*3/uL RBC 3.07 L (4.40-5.60) X 10*6/uL Hgb 8.5 L (13.0-17.0) g/dL Hct 27.1 L (39.6-50.0) % MCHC 31.4 L (32.0-37.0) g/dL Immature Gran # 0.09 H (0.00-0.04) X 10*3/uL Neutrophils # 10.15 H (1.80-7.70) X 10*3/uL Monocytes # 1.05 H (0.20-1.00) X 10*3/uL Anion Gap (4.00-12.00) mmol/L BUN (9.0-27.0) mg/dL Creatinine (0.6-1.5) mg/dL Est GFR (CKD-EPI) (>=60) BUN/Creatinine Ratio (12.00-20.00) Ratio Calcium (8.7-10.3) mg/dL Vitamin D 25-Hydroxy 16.0 L (30.0-100.0) ng/mL PTH Intact 375.0 H (14.0-72.0) pg/mL 09/05/24 Range/Units 04:53 WBC (4.50-10.00) X 10*3/uL RBC (4.40-5.60) X 10*6/uL Hgb (13.0-17.0) g/dL Hct (39.6-50.0) % MCHC (32.0-37.0) g/dL Immature Gran # (0.00-0.04) X 10*3/uL Neutrophils # (1.80-7.70) X 10*3/uL Monocytes # (0.20-1.00) X 10*3/uL Anion Gap 18.10 H (4.00-12.00) mmol/L BUN 92.9 H (9.0-27.0) mg/dL Creatinine 8.9 H (0.6-1.5) mg/dL Est GFR (CKD-EPI) 7 L (>=60) BUN/Creatinine Ratio 10.44 L (12.00-20.00) Ratio Calcium 6.6 L (8.7-10.3) mg/dL Vitamin D 25-Hydroxy (30.0-100.0) ng/mL PTH Intact (14.0-72.0) pg/mL Assessment and Plan Assessment: 1. DANIELLA versus possible progression of CKD, secondary to ATN from polycystic kidney disease diagnosed since at least 2016, nonoliguric. UA in 2022 with proteinuria. This visit UA significant for protein 2+. Initial creatinine 8.67, creatinine today 8.5, baseline creatinine unclear but appears to be around 8 2. Stage IV or stage V CKD, from polycystic kidney disease, baseline unclear, Previous serum creatinine 8.7 on last admission 10 days ago and 3.4 previous to that in June 2023. BUN 118 on admission, today is 105. No signs of uremic encephalopathy. 3. Anion gap metabolic acidosis, likely from CKD, improving 4. Anemia, hemoglobin 7.8 on admission, 1 unit pRBC given, total iron low at 32, transferrin low 201, saturation low 11.3%, maintained on Aranesp 5. Hypertension, on amlodipine. Started Coreg this admission. 6. Incarcerated umbilical hernia, status post repair, omentectomy Plan: Stable for discharge from nephrology standpoint. Can increase Coreg to 12.5 mg twice daily upon discharge. Follow-up in the office in about 1 week's time Take Tums 500 twice daily for hypocalcemia as well as aggressive vitamin D suppl ementation.
--- NOTE | 2024-09-05 12:22 | P.PN ---
Subjective Progress Note Date: 09/05/24 SURGICAL PROGRESS NOTE CHIEF COMPLAINT: Umbilical hernia HISTORY OF PRESENT ILLNESS: Patient is postop day #4 status post open repair of incarcerated umbilical hernia and partial omentectomy. Pain is controlled. He is tolerating diet. He did have a bowel movement. Denies any nausea or vomiting. Afebrile. WBC 12.62 hgb 8.5 PHYSICAL EXAM: VITAL SIGNS: Reviewed. GENERAL: Well-developed in no acute distress. ABDOMEN: Soft. Nondistended. Incision clean dry and intact NEUROLOGIC: Alert and oriented. Cranial nerves II through XII grossly intact. ASSESSMENT: 1. Incarcerated umbilical hernia 2. Anemia prior to surgery 3. Acute kidney injury on top of chronic kidney disease and history of polycystic kidney disease PLAN: -Recommend EGD and colonoscopy outpatient for further anemia workup -Continue regular diet -Levaquin 7 days at discharge for leukocytosis -Patient can be discharge from surgical standpoint Physician Biomedical Manager note has been reviewed by physician. Signing provider agrees with the documented findings, assessment, and plan of care. Objective - Vital Signs Vital signs: Vital Signs Temp 97.7 F 09/05/24 07:36 Pulse 96 09/05/24 08:00 Resp 17 09/05/24 07:36 BP 165/119 09/05/24 09:45 Pulse Ox 97 09/05/24 07:36 FiO2 Intake & Output 09/04/24 09/05/24 09/05/24 18:59 06:59 18:59 Intake Total 2820 1080 240 Balance 2820 1080 240 Intake: Oral 2820 1080 240 Other: Voiding Method Toilet Toilet Toilet Urinal Urinal # Voids 6 2 1 # Bowel Movements 2 - Labs CBC & Chem 7: 09/05/24 04:53 09/05/24 04:53 Labs: Abnormal Lab Results - Last 24 Hours (Table) 09/04/24 09/04/24 09/05/24 Range/Units 09:58 09:58 04:53 WBC 12.62 H (4.50-10.00) X 10*3/uL RBC 3.07 L (4.40-5.60) X 10*6/uL Hgb 8.5 L (13.0-17.0) g/dL Hct 27.1 L (39.6-50.0) % MCHC 31.4 L (32.0-37.0) g/dL Immature Gran # 0.09 H (0.00-0.04) X 10*3/uL Neutrophils # 10.15 H (1.80-7.70) X 10*3/uL Monocytes # 1.05 H (0.20-1.00) X 10*3/uL Anion Gap (4.00-12.00) mmol/L BUN (9.0-27.0) mg/dL Creatinine (0.6-1.5) mg/dL Est GFR (CKD-EPI) (>=60) BUN/Creatinine Ratio (12.00-20.00) Ratio Calcium (8.7-10.3) mg/dL Vitamin D 25-Hydroxy 16.0 L (30.0-100.0) ng/mL PTH Intact 375.0 H (14.0-72.0) pg/mL 09/05/24 Range/Units 04:53 WBC (4.50-10.00) X 10*3/uL RBC (4.40-5.60) X 10*6/uL Hgb (13.0-17.0) g/dL Hct (39.6-50.0) % MCHC (32.0-37.0) g/dL Immature Gran # (0.00-0.04) X 10*3/uL Neutrophils # (1.80-7.70) X 10*3/uL Monocytes # (0.20-1.00) X 10*3/uL Anion Gap 18.10 H (4.00-12.00) mmol/L BUN 92.9 H (9.0-27.0) mg/dL Creatinine 8.9 H (0.6-1.5) mg/dL Est GFR (CKD-EPI) 7 L (>=60) BUN/Creatinine Ratio 10.44 L (12.00-20.00) Ratio Calcium 6.6 L (8.7-10.3) mg/dL Vitamin D 25-Hydroxy (30.0-100.0) ng/mL PTH Intact (14.0-72.0) pg/mL
--- NOTE | 2024-09-05 12:59 | P.DS ---
Providers Date of admission: 08/31/24 15:23 Expected date of discharge: 09/05/24 Attending physician: Agustin Diehl Consults: 08/31/24 15:23 Consult Physician Routine Consulting Provider: Agustin Diehl Consult Reason/Comments: Medical management Do you want consulting provider notified?: Yes 08/31/24 16:49 Consult Physician Routine Consulting Provider: Becca Angel Consult Reason/Comments: Polycystic kidney patient Do you want consulting provider notified?: Yes 09/01/24 08:41 Consult Physician Routine Consulting Provider: Rojelio Mesa Consult Reason/Comments: umblicia hernia, PSBO Do you want consulting provider notified?: Yes Primary care physician: Agustin Diehl Hospital Course: Discharge diagnoses; Umbilical hernia, CT reporting umbilical hernia containing loop of small bowel with nondistended bowel extending away from this loop suggest at least partial bowel obstruction.status post open repair of incarcerated umbilical hernia, partial omentectomy. Postoperative acute hypoxic respiratory failure secondary to the above Acute on chronic renal failure, baseline GFR 22, currently 7, stage IV/V secondary to polycystic kidney disease. CT reporting enlarged polycystic kidneys with medial right renal cyst may have a hemorrhagic component. Other hyperdense cyst present bilaterally. Metabolic acidosis, secondary to the above Anemia secondary to the above, status post fusion of 1 unit of RBC Remote appearing right-sided rib fractures including ribs 11, 8 and 7, reported per CT Small hiatal hernia Morbid obesity, BMI 35 Hypertension Former nicotine dependence Hypocalcemia Hospital course; 39-year-old gentleman with past medical history significant for umbilical hernia, morbid obesity, chronic kidney disease, depression, former nicotine dependence and multiple other medical issues presented to the ER with umbilical hernia site tenderness accompanied by nausea, nause. Denies emesis. Denies fevers or chills. Last bowel movement yesterday ,prior to admission and passing flatus. reports unable to reduce at home and proceeded to the ER. Admission, afebrile, WBC 14.1, hemoglobin 7.8, platelets 445, INR 0.9, bicarb 15, BUN 118, creatinine 8.67, GFR 7. Nephrology and general surgery consulted. 09/02/2024 status post open repair of incarcerated umbilical hernia, partial omentectomy. Tolerated procedure well. Pain controlled. Bicarb drip, improving- bicarb 18.3. BUN 105, creatinine 8.5. Status post 1 unit packed RBCs, hemoglobin 8.8. Continues on Unasyn. afebrile, WBC 12.4. Hypertensive, mild tachycardia. Required 2 L nasal cannula O2 to maintain O2 sats in the mid 90s. Tolerating regular diet with no nausea vomiting or diarrhea. Passing flatus. Complains of headache this morning. 09/03/2024 good diet intake, denies nausea vomiting or diarrhea. Positive bowel movement. Hypertensive/tachycardic yesterday, Coreg initiated, improving. More ambulatory today. Pain controlled. Afebrile, WBC 12.34. Hemoglobin stable 8. 3, platelets 390. Maintained on bicarb drip, bicarb 24.2. BUN 101, creatinine 8.6. Calcium 6.2, calcium gluconate ordered. 09/04. Patient seen and examined. Blood work done this morning showed sodium 145, potassium 4.5, BUN 96.6, Creatinine 8.7, calcium 6.4. Blood pressure continues to be elevated 09/05. Patient seen and examined. Nephrology recommend increasing the dose of Coreg to 12.5 g twice a day. Patient was being discharged on vitamin D and calcium supplementation. Patient to follow-up outpatient with nephrology PHYSICAL EXAMINATION: GENERAL: The patient is alert and oriented x3, not in any acute distress. Well developed, well nourished. HEENT: Pupils are round and equally reacting to light. EOMI. No scleral icterus. No conjunctival pallor. Normocephalic, atraumatic. No pharyngeal erythema. No thyromegaly. CARDIOVASCULAR: S1 and S2 present. No murmurs, rubs, or gallops. PULMONARY: Chest is clear to auscultation, no wheezing or crackles. ABDOMEN: Surgical incision seen, abdominal binder in place MUSCULOSKELETAL: No joint swelling or deformity. EXTREMITIES: No cyanosis, clubbing, or pedal edema. NEUROLOGICAL: Gross neurological examination did not reveal any focal deficits. SKIN: No rashes. Dictation was produced using [email or web address] dictation software. please excuse any grammatical, word or spelling errors. Patient Condition at Discharge: Fair Plan - Discharge Summary Discharge Rx Participant: No New Discharge Prescriptions: New HYDROcodone/APAP 5-325MG [Correll 5-325] 1 tab PO Q6HR PRN 3 Days #12 tab PRN Reason: Pain Levofloxacin [Levaquin] 250 mg PO DAILY 7 Days #7 tablet Calcium Carbonate [Tums] 1,000 mg PO BID 30 Days #60 tab carvediloL [Coreg] 12.5 mg PO BID 30 Days #90 tablet Ergocalciferol [Vitamin D2 (1250 Mcg = 74700 Iu)] 1,250 mcg PO WEEKLY #8 cap Ferrous Sulfate [Feosol] 325 mg PO BID 30 Days #60 tab Continue amLODIPine 10 mg PO DAILY #30 tab Allergy Med Otc(Unknown) 1 tab PO DAILY Discharge Medication List amLODIPine 10 mg PO DAILY #30 tab 11/16/23 [Rx] Allergy Med Otc(Unknown) 1 tab PO DAILY 08/31/24 [History] HYDROcodone/APAP 5-325MG [Correll 5-325] 1 tab PO Q6HR PRN 3 Days #12 tab 09/03/24 [Rx] Calcium Carbonate [Tums] 1,000 mg PO BID 30 Days #60 tab 09/05/24 [Rx] Ergocalciferol [Vitamin D2 (1250 Mcg = 57830 Iu)] 1,250 mcg PO WEEKLY #8 cap 09/05/24 [Rx] Ferrous Sulfate [Feosol] 325 mg PO BID 30 Days #60 tab 09/05/24 [Rx] Levofloxacin [Levaquin] 250 mg PO DAILY 7 Days #7 tablet 09/05/24 [Rx] carvediloL [Coreg] 12.5 mg PO BID 30 Days #90 tablet 09/05/24 [Rx] Follow up Appointment(s)/Referral(s): Becca Angel MD [STAFF PHYSICIAN] - 1 Week Channing Venegas DO [STAFF PHYSICIAN] - 1-2 days Rojelio Mesa MD [STAFF PHYSICIAN] - 1 Week Discharge Disposition: HOME SELF-CARE
[2024-09-05 13:19] VITALS: BMI 35.2
[2024-09-05 14:09] VITALS: BP 173/114; PULSE 107; RESP 17; TEMP 97.8
--- NOTE | 2024-09-06 12:09 | CDI ---
Documentation Clarification Form Date: 09/06/2024 11:52:05 AM From: Thao Rahman Phone: Admit Date: 08/31/2024 03:23:00 PM Patient Name: Francis Swift Visit Number: [id number] Discharge Date: 09/05/2024 02:48:00 PM ATTENTION: The Clinical Documentation Specialists (CDI) and [facility] Coding Staff appreciate your assistance in clarifying documentation. Please respond to the clarification below the line at the bottom and electronically sign. The CDI & [facility] Coding staff will review the response and follow-up if needed. Please note: Queries are made part of the Legal Health Record. If you have any questions, please contact the author of this message via ITS. Doctor/Provider: Becca Angel Stage IV orstage V CKD is documented per Consult and Progress Notes. Additional clarification regarding the stage of CKD is requested. Clinical Indicators: BUN: 09/02 12.35 09/03 11.75 09/05 10.44 CR: 09/01 8.94 09/02 8.5 09/03 8.6 09/05 8.9 GFR: 09/02 8 09/03 8 09/05 7 Previous serum creatinine 8. 7on last [id number] days ago and 3. 4 previous to that in June 2023. BUN 118 on admission, today is 105. No signs ofuremic encephalopathy. Baseline GFR 22, currently 7, stage IV/V secondary topolycystic kidney disease. CTreportingenlargedpolycystickidneys with medialright renal cystmay haveahemorrhagiccomponent. Other hyperdensecystpresent bilaterally. Treatment: Discussed plans forrenal replacement therapyat length,noplans forHD at this time, Ptwith nouremicsymptoms. D/c IV D5W with bicarbonate. Begin sodium bicarbonate tablets 650 po 2xd. Given calcium gluconate 2g, monitor calcium. Check 25-hydroxy vitamin D level. Check PTH. Add IV iron. Continue Aranesp 40 mcg subcu q7d. Added Coreg 6.25 po 2xd. Please clarify the stage of the CKD, if known: [ ] CKD Stage 4 [x ] CKD Stage 5 [ ] ESRD [ ] Other, please specify [ ] Unable to determine Reference: National [employer] Stage 1 eGFR = 90 and kidney damage for =3 months Stage 2 eGFR 60-89 and kidney damage for =3 months Stage 3a eGFR 45-59 and kidney damage for =3 months Stage 3b eGFR 30-44 and kidney damage for =3 months Stage 4 eGFR 15-29 r and kidney damage for =3 months Stage 5 eGFR <15 and kidney damage for =3 months (Template last revised: July 2023) MTDD
--- NOTE | 2024-09-18 11:54 | CDI ---
Documentation Clarification Form Date: 09/04/2024 01:36:00 PM From: Ale Carranza RN, CCDS Phone: [phone] Admit Date: 08/31/2024 03:23:00 PM Patient Name: Francis Swift Visit Number: [id number] Discharge Date: 09/05/2024 02:48:00 PM ATTENTION: The Clinical Documentation Specialists (CDI) and [facility] Coding Staff appreciate your assistance in clarifying documentation. Please respond to the clarification below the line at the bottom and electronically sign. The CDI & [facility] Coding staff will review the response and follow-up if needed. Please note: Queries are made part of the Legal Health Record. If you have any questions, please contact the author of this message via ITS. Provider: Thao PAREDES Postoperative acute hypoxic respiratory failure is documented in the progress note starting on 09/02/24 and the patient required 2L NC to maintain O2 sats in the mid-90s. Additional clarification is requested regarding the relationship, if any, that exists between the diagnosis and the procedure. History/Risk Factors: Polycystic kidney disease, Hypertension, Renal Disease, Morbid obesity (BMI 35.2) Patients Admitting Diagnosis: Incarcerated umbilical hernia Post-Operative Diagnosis: incarcerated umbilical hernia Procedure performed: Open repair of incarcerated umbilical hernia, Partial omentectomy Clinical Indicators: 39-year-old man presented with an umbilical hernia for a long time but that it became painful. Location: periumbilical, with nausea 08/31 VS 180/108 102 20 98% RA 09/02 progress note Required 2/L nasal cannula O2 to maintain O2 sats in the mid- 90s. Respirations: unlabored, equal air entry, clear to auscultation. 09/02 VS (07:36) 175/; 113 19 103 19 97.8 96% 2/L (10:15 pulse 111 RR 18, resp effort normal, non-labored 09/02 VS 146/92 96 16 94 % RA 09/02 Labs: WBC 12.4 HGB 8.8, CCT 26.7 C02 18.3, BUN 105.0 CR 8.5 Treatment: Monitor O2 sats (titrate) .9 % NS IV What relationship, if any, exists between the diagnosis of postoperative acute hypoxic respiratory failure and the procedure? [ ] Postoperative acute hypoxic respiratory is not clinically significant and not a complication [ ] Postoperative acute hypoxic respiratory is clinically significant and not a complication [ ] Postoperative acute hypoxic respiratory is clinically significant and a complication [ ] Other please specify ____ [ ] Unable to determine (Template Last Revised: July 2024) 09/18 Change postoperative acute respiratory failure to read-acute respiratory failure postoperative, secondary to atelectasis, expected outcome. Resolved MTDD
== END 2024-09-05 14:48 | disposition home or self-care (01) | DRG 353 ==
LOC: EC 14:12 → 5NMEDONC 15:23
PROVIDERS: ADMIT Family Medicine; ATTEND Family Medicine
PROC: 0DBU0ZZ Excision of Omentum, Open Approach (ICD-10-PCS; 2024-09-01)
PROC: 30233N1 Transfusion of Nonautologous Red Blood Cells into Peripheral Vein, Percutaneous Approach (ICD-10-PCS; 2024-09-01)
PROC: 0WQF0ZZ Repair Abdominal Wall, Open Approach (ICD-10-PCS; principal; 2024-09-01 10:45)
DX: K42.0 Umbilical hernia with obstruction, without gangrene (principal); J96.01 Acute respiratory failure with hypoxia; N17.0 Acute kidney failure with tubular necrosis; E87.20 Acidosis, unspecified; N25.81 Secondary hyperparathyroidism of renal origin; N18.5 Chronic kidney disease, stage 5; D63.1 Anemia in chronic kidney disease; E83.51 Hypocalcemia; E66.01 Morbid (severe) obesity due to excess calories; I10 Essential (primary) hypertension; Q61.3 Polycystic kidney, unspecified; K44.9 Diaphragmatic hernia without obstruction or gangrene; R00.0 Tachycardia, unspecified; Z68.35 Body mass index [BMI] 35.0-35.9, adult; Z79.899 Other long term (current) drug therapy; Z87.891 Personal history of nicotine dependence; Z98.1 Arthrodesis status; Z87.81 Personal history of (healed) traumatic fracture
CPT/HCPCS: 36415; 74018; 74176; 80048; 80053; 81001; 82306; 82728; 83540; 83550; 83605; 83970; 85025; 85610; 85730; 86850; 86900; 86901; 86920; 88305; 96361; 96365; 96366; 96375; 96376; 99285

== ENCOUNTER → 2024-10-23 | Outpatient (CLI) | payer OTHER ==
[2024-10-24 02:38] LABS: Basophils # (A) 0.05 X 10*3/uL (0.00-0.10); Basophils % (A) 0.4 %; Eosinophils % (A) 2.4 %; HCT 27.7 % (39.6-50.0); Lymphocytes # (A) 0.91 X 10*3/uL (0.90-5.00); Lymphocytes % (A) 7.3 %; MCH 28.7 pg (27.0-32.0); MCHC 32.5 g/dL (32.0-37.0); MCV 88.2 FL (80.0-97.0); Mean Platelet Volume 10.4 FL (9.5-12.2); Monocytes # (A) 0.86 X 10*3/uL (0.20-1.00); Monocytes % (A) 6.9 %; NRBC Per 100 WBC 0 X 10*3/uL (0.00-0.01); Neutrophils # (A) 10.26 X 10*3/uL (1.80-7.70); Neutrophils % (A) 82.7 %; Platelet Count 321 X 10*3/uL (140-440); RBC 3.14 X 10*6/uL (4.40-5.60); RDW 15.8 % (11.5-14.5); WBC 12.42 X 10*3/uL (4.50-10.00)
[2024-10-24 03:21] LABS: % Iron Saturation 18.69 (15.00-50.00); Iron 57 UG/DL (65-175); Total Iron Binding Capacity 305 UG/DL (228-460); Uric Acid 6.3 mg/dL (3.7-8.7)
[2024-10-24 03:35] LABS: BUN/Creat Ratio 12.95 Ratio (12.00-20.00); Calcium 7.3 mg/dL (8.7-10.3); Carbon Dioxide 16.2 mmol/L (21.6-31.8); Chloride 105 mmol/L (96-109); Glucose 93 mg/dL (70-110); Sodium 142 mmol/L (135-145)
[2024-10-24 03:48] LABS: Appearance,Urine Cloudy (Clear); Bilirubin,Urine Negative (Negative); Blood,Urine Large (Negative); Color,Urine Yellow (Yellow); Ketones,Urine Negative (Negative); Nitrite,Urine Negative (Negative); Specific Gravity,Urine 1.011 (1.001-1.030); Urobilinogen,Urine 0.2 E.U./DL
[2024-10-24 04:02] LABS: Bacteria,Urine None Seen (None Seen)
== END | disposition home or self-care (01) ==
LOC: LABWHC1 14:55
PROVIDERS: ATTEND Internal Medicine Nephrology
DX: N18.5 Chronic kidney disease, stage 5 (principal)
CPT/HCPCS: 36415; 80048; 81001; 82043; 82306; 82570; 82728; 83540; 83550; 83735; 83970; 84100; 84550; 85025

== ENCOUNTER 2024-11-11 12:33 | Day surgery (SDC) | payer OTHER ==
[2024-11-06 12:45] VITALS: BMI 31.8
[~2024-11-11 12:33] MED LIST: LACTATED RINGERS 1,000 ML IV SCH; LIDOCAINE 1% (10MG/ML) FOR IV START INTRADERMA PRN; MIDAZOLAM 2 MG/2 ML VIAL IV PRN; fentaNYL (PF) 50 MCG/ML 2 ML AMP IVP PRN
[2024-11-11] MEDS: IV FLUID CONTINUATION 1,000 ML IV ONE (13:26)
[2024-11-11] MEDS: DEXAMETHASONE SOD PHOSPHATE 4 MG/ML 1 ML VIAL IV ONE (13:37)
[2024-11-11] MEDS: ONDANSETRON 4 MG/2 ML VIAL IVP ONE (13:37)
[2024-11-11] MEDS: HEPARIN SODIUM,PORCINE 5,000 UNIT/ML 1 ML VIAL SQ PRN (13:37)
[2024-11-11] MEDS ORDERED: NEOSTIGMINE 1 MG/ML 10 ML VIAL ONE (13:50)
[2024-11-11] MEDS ORDERED: fentaNYL (PF) 50 MCG/ML 2 ML AMP ONE (13:50)
[2024-11-11] MEDS ORDERED: PROPOFOL 10 MG/ML 20 ML VIAL IV ONE (13:50)
[2024-11-11] MEDS: LIDOCAINE 1%-EPI 1:100,000 20 ML VIAL SQ ONE ×3 (13:50→14:08)
[2024-11-11] MEDS ORDERED: ROCURONIUM 10 MG/ML (5 ML VIAL) IV ONE (13:50)
[2024-11-11] MEDS ORDERED: SUCCINYLCHOLINE CHLORIDE 200 MG/10 ML VIAL IV ONE (13:50)
[2024-11-11] MEDS ORDERED: LIDOCAINE 1% INJ 10MG/ML (20 ML MDV) ONE (13:50)
[2024-11-11] MEDS ORDERED: GLYCOPYRROLATE 0.2 MG/ML 2 ML VIAL ONE (13:50)
[2024-11-11] MEDS: ceFAZolin 2 GM in DEXTROSE 5% IN WATER 50 ML IVPB PRN (13:54)
[2024-11-11] MEDS: MINERAL OIL 1 APPLIC/ML OIL MISCELLANE ONE (14:16)
[2024-11-11 14:50] VITALS: TEMP 97
--- NOTE | 2024-11-11 14:50 | P.OP ---
Date of Procedure: 11/11/24 Preoperative Diagnosis: End-stage renal disease, requiring dialysis Postoperative Diagnosis: End-stage renal disease, requiring dialysis Procedure(s) Performed: Laparoscopic peritoneal dialysis catheter insertion with omentopexy Anesthesia: COLEEN Surgeon: Aurea Moe Pathology: none sent Condition: stable Disposition: same day Indications for Procedure: 39-year-old male with end-stage renal disease requiring dialysis. He is opted for peritoneal dialysis and presents today for laparoscopic peritoneal dialysis catheter insertion. Risks, benefits alternatives were provided to the patient. All questions answered prior to attending the operating suite. Operative Findings: Appropriate flush and withdrawal from dialysis catheter Description of Procedure: Patient was brought to the operating suite and placed in supine position on the operating table. Sedation was provided by anesthesia and the patient underwent endotracheal intubation. The patient was prepped and draped in regular sterile fashion. Incision was made at Christine's point and the abdomen was entered under direct visualization using a 5 mm Visiport. Pneumoperitoneum was achieved. Additional 5 mm port was placed in the right upper quadrant. Omentum was grasped and elevated towards the falciform ligament. A Conner Platt device was used in the subxiphoid region and with a 2-0 Vicryl, the omentum was secured to the abdominal wall. Omentopexy was completed at this point. An additional 5 mm incision was made approximately 3 cm medial and inferior to the initial Christine's point incision site. A long 5 mm trocar was then placed through this incision site and it was run along the peritoneum with exit in the infraumbilical region. Through the port, peritoneal dialysis catheter was inserted after mineral oil was applied. The port was then removed and the cuff was noted to sit in the preperitoneal space. Appropriate flush was noted with saline. At this point, the initial 5 mm trocar site was removed and a hemostat was placed through the subcutaneous tissue to the insertion site of the catheter and the catheter was grasped and pulled through the subcutaneous tract towards the initial incision site. At this point pneumoperitoneum was released and all ports removed from the abdomen. All skin incisions were closed with 4-0 Vicryl subcuticular suture. No evidence of kinking noted. Sterile dressing was applied. The patient was awakened in the operating suite and taken to postanesthesia care unit in stable condition.
[2024-11-11] MEDS: HYDROmorphone 0.5 MG/0.5 ML SYRINGE IVP PRN (15:03)
[2024-11-11] MEDS: HYDROcodone/APAP 5-325MG 1 EACH TAB PO STA (15:50)
[2024-11-11 16:03] VITALS: BP 158/89; PULSE 79; RESP 18
== END 2024-11-11 16:25 | disposition home or self-care (01) ==
LOC: OR 12:33
PROVIDERS: ATTEND Surgery
DX: I12.0 Hypertensive chronic kidney disease with stage 5 chronic kidney disease or end stage renal disease (principal); N18.6 End stage renal disease; F32.A Depression, unspecified; F90.9 Attention-deficit hyperactivity disorder, unspecified type; K21.9 Gastro-esophageal reflux disease without esophagitis; Z79.899 Other long term (current) drug therapy; Z88.6 Allergy status to analgesic agent
CPT/HCPCS: 49324; C1752; J0330; J1644; J1100; J2710; J0690; J2405; J2003; J3010; J2704; J1171; J1596

== ENCOUNTER → 2024-11-11 | Outpatient (CLI) | payer OTHER ==
[2024-11-11 21:16] LABS: Hepatitis A Antibody IgM Nonreactive (Nonreactive); Hepatitis B Core IgM Nonreactive (Nonreactive); Hepatitis B Surface Antigen Nonreactive (Nonreactive); Hepatitis C IgG Antibody Nonreactive (Nonreactive)
== END | disposition home or self-care (01) ==
LOC: LABWHC1 16:21
PROVIDERS: ATTEND Internal Medicine Nephrology
DX: N18.6 End stage renal disease (principal)
CPT/HCPCS: 36415; 80074

== ENCOUNTER 2024-11-18 05:38 | Day surgery (SDC) | payer OTHER ==
[2024-11-13 14:59] VITALS: BMI 32.5
[2024-11-18] MEDS ORDERED: LIDOCAINE 1% (10MG/ML) FOR IV START INTRADERMA PRN (05:58)
[2024-11-18] MEDS ORDERED: LACTATED RINGERS 1,000 ML IV SCH (05:58)
[2024-11-18] MEDS: SODIUM CHLORIDE 0.9% 50 ML IV ONE (06:29)
[2024-11-18] MEDS: SODIUM CHLORIDE 0.9% 500 ML 500 ML IV ONE (06:29)
[2024-11-18] MEDS: DEXAMETHASONE SOD PHOSPHATE 4 MG/ML 1 ML VIAL IV ONE (06:34)
[2024-11-18] MEDS: ONDANSETRON 4 MG/2 ML VIAL IVP ONE (06:35)
[2024-11-18] MEDS ORDERED: MIDAZOLAM 2 MG/2 ML VIAL IV PRN (07:00)
[2024-11-18] MEDS ORDERED: HYDROmorphone 0.5 MG/0.5 ML SYRINGE IVP PRN (07:00)
[2024-11-18] MEDS ORDERED: fentaNYL (PF) 50 MCG/ML 2 ML AMP IVP PRN (07:00)
[2024-11-18] MEDS ORDERED: ePHEDrine 50 MG/ML 1 ML VIAL ONE (07:29)
[2024-11-18] MEDS ORDERED: HEPARIN SODIUM,PORCINE 5,000 UNIT/ML 1 ML VIAL ONE (07:29)
[2024-11-18] MEDS ORDERED: fentaNYL (PF) 50 MCG/ML 2 ML AMP ONE (07:29)
[2024-11-18] MEDS ORDERED: WATER FOR INJECTION, STERILE 10 ML VIAL IV ONE (07:29)
[2024-11-18] MEDS ORDERED: PROPOFOL 10 MG/ML 20 ML VIAL IV ONE (07:29)
[2024-11-18] MEDS ORDERED: VASOPRESSIN 20 UNIT/ML 1 ML VIAL ONE (07:29)
[2024-11-18] MEDS ORDERED: LIDOCAINE 1% INJ 10MG/ML (20 ML MDV) ONE (07:29)
[2024-11-18] MEDS ORDERED: MIDAZOLAM 2 MG/2 ML VIAL ONE (07:29)
[2024-11-18] MEDS ORDERED: PHENYLEPHRINE-0.9% NACL SYG 1,000 MCG/10 ML SYRINGE ONE (07:29)
[2024-11-18] MEDS: ceFAZolin 2 GM in DEXTROSE 5% IN WATER 50 ML IVPB PRN (07:34)
[2024-11-18] MEDS: ceFAZolin 2 GM in SODIUM CHLORIDE 0.9% 500 ML 500 ML IRRIGATION ONE (08:10)
[2024-11-18] MEDS: HEPARIN SODIUM,PORCINE (1 ML) 2,000 UNIT in SODIUM CHLORIDE 0.9% 500 ML 500 ML IRRIGATION ONE (08:11)
[2024-11-18 09:03] VITALS: TEMP 96.8
--- NOTE | 2024-11-18 09:11 | P.OP ---
Date of Procedure: 11/18/24 Preoperative Diagnosis: Chronic kidney disease Postoperative Diagnosis: Same Procedure(s) Performed: Left upper extremity radiocephalic fistula creation Anesthesia: COLEEN Surgeon: Alex Narvaez Estimated Blood Loss (ml): 10 Pathology: none sent Condition: stable Disposition: PACU Indications for Procedure: 39-year-old gentleman with chronic kidney disease presents to the hospital for arteriovenous fistula creation. He underwent vein mapping which demonstrated vein at the wrist measuring 2.5 mm which was marginal in size but after discussion with the patient he would like to attempt fistula creation at the wrist. He presents today for radiocephalic fistula creation. Operative Findings: Radial artery was small but without disease Description of Procedure: After written and informed consent was obtained from the patient the patient was brought to the operative suite and laid in a supine position. The left arm was prepped and draped in the usual sterile fashion after appropriate anesthesia was performed per the anesthesiologist. Utilizing ultrasound the cephalic vein was visualized and marked and shown to be good size. A small vertical incision was then created with a 15 blade scalpel just proximal to the wrist and dissection was carried down to the radial artery which was dissected free in a circumferential manner. Proximal distal control was then obtained with vessel loops. Attention was then placed back to the cephalic vein which was located and dissected free in a circumferential manner distally to the wrist. At the wrist it was ligated with silk suture. Further dissection was carried around the vein and the vein was brought over to the radial artery. Serial dilation was then performed on the vein and good backbleeding was noted. Patient was administered 3000 units of heparin and the radial artery was clamped at the proximal and distal aspect. Utilizing 11 blade scalpel and arteriotomy was created and extended with [place] scissors. There was good brisk backbleeding noted from the radial artery and pulsatile blood flow visualized from the proximal aspect. The vein was then spatulated and an end-to-side anastomosis was created with a 7-0 Prolene suture. Prior to last sutures being placed the control was released from the vein revealing good backbleeding and distal control on the radial artery was released revealing good back flow. The proximal control was then released and good pulsatile blood flow was visualized in the fistula and final sutures were secured. The area was copiously irrigated with antibiotic solution. Hemostasis was assured. The vessels were then interrogated with Doppler which demonstrated good multiphasic signal distal to the anastomosis as well as positive bruit within the vein consistent with good fistula creation. Under ultrasound there was pulsatile flow noted in the cephalic vein. The incision was then closed in a multilayer fashion. The skin was cleansed and dressings were placed. Patient does procedure well and was sent to PACU for recovery.
[2024-11-18 09:12] VITALS: RESP 16
[2024-11-18 10:18] VITALS: BP 159/102; PULSE 71
== END 2024-11-18 10:52 | disposition home or self-care (01) ==
LOC: OR 05:38
PROVIDERS: ATTEND Surgery
DX: N18.6 End stage renal disease (principal); D72.829 Elevated white blood cell count, unspecified; K43.9 Ventral hernia without obstruction or gangrene; I10 Essential (primary) hypertension; Q61.3 Polycystic kidney, unspecified; Z87.891 Personal history of nicotine dependence; Z79.899 Other long term (current) drug therapy
CPT/HCPCS: 36821; J2250; J1644; J1100; J0690; J2405; J2003; J3010; J2704; J2371